=== PATIENT | male | born 1955 | race African-American/Black ===

== ENCOUNTER 2020-03-10 00:19 | Outpatient (CLI) | payer MEDICARE, SELFPAY ==
[2020-03-10 18:26] LABS: SARS-CoV-2 RNA PCR Negative
== END 2020-03-10 00:20 | disposition home or self-care (01) ==
LOC: ANHCOVIDDT 00:19
PROVIDERS: PCP Family Medicine; Visit Provider Internal Medicine Gastroenterology
DX: Z01.812 Encounter for preprocedural laboratory examination (principal); Z20.822 Contact with and (suspected) exposure to COVID-19
CPT/HCPCS: C9803; U0003; U0005

== ENCOUNTER 2020-03-13 01:16 | Day surgery (SDC) | payer MEDICARE, SELFPAY ==
[2020-02-27 09:47] VITALS: BMI 29.0
[2020-03-13 09:25] LABS: Glucose Point of Care 142 (65-105)
[2020-03-13 09:26] VITALS: BP 146/80; PULSE 87; RESP 18; TEMP 36.1; O2SAT 100; BMI 29.9
[2020-03-13] MEDS: LACTATED RINGERS 1,000 ML 150 ML IV CONT (09:35)
--- NOTE | 2020-03-13 10:06 | WPDGICN ---
GI Consult Note Consult date/time: 03/13/20 10:06 HPI: Reason for visit is colonoscopy. This very pleasant gentleman seen in consultation request of the primary physician. Impression: Here is a gentleman with a history of multiple adenomatous polyps and colorectal cancer. He is status post colectomy. GERD controlled with medication. HTN. HLD. CAD with history of myocardial infarction. Status post stent placement x3 and x3. Diabetes mellitus. Peripheral neuropathy. Recommendation: Colonoscopy. History: This very pleasant gentleman has a history adenomatous colon polyps and colorectal cancer. He is status post resection and multiple colonoscopies in the past. He is here for screening and surveillance. He has a history reflux disease well controlled on medication. His GI review systems is negative. Physical examination: General: very pleasant patient in no acute distress. HEENT: Head was normocephalic sclerae is clear mouth without masses neck was supple. Heart: Rate rhythm regular without S3 or S4. Lungs: CTA. Abdomen: Soft with no guarding or rigidity. Bowel sounds were active. Neurologic: Cranial nerves 2 through 12 intact. No focal defects. No clonus. Musculoskeletal system: Revealed no joint tenderness or swelling no muscle atrophy. Extremities: Reveal no significant edema. Skin: Warm and dry with normal turgor. Mental status: intact. Patient is alert and oriented. Review of Systems Review of Systems: All systems reviewed & are unremarkable except as noted in HPI and below PMFSH Family History Family History (System 06/14/19 @ 09:49 by Roseanne Subramanian) Father Cerebrovascular accident Sibling Family history of diabetes mellitus in first degree relative Family history of heart disease in male family member before age 55 Social History Social History (System 06/14/19 @ 09:49 by Roseanne Subramanian) Smoking status: Current every day smoker Tobacco type: cigarettes Alcohol intake: current Alcohol use details: SOCIAL Substance use: never Substance use type: does not use Living arrangements: with family Gender identity (if verbalized by the patient): Male Spiritual care concerns: No Meds Home Medications and Allergies Home Medications Medication Instructions Recorded Confirmed Type albuterol sulfate See Rx Instructions .ROUTE .COMPLEX 02/27/20 03/13/20 History amlodipine 5 mg PO DAILY 02/27/20 03/13/20 History atorvastatin 80 mg PO DAILY 02/27/20 03/13/20 History bimatoprost [Lumigan] 1 drp OPHTHALMIC (EYE) DAILY 02/27/20 03/13/20 History brimonidine 1 drp DAILY 02/27/20 03/13/20 History brimonidine 1 drp OPHTHALMIC (EYE) DAILY 02/27/20 03/13/20 History carvedilol 25 mg PO DAILY 02/27/20 03/13/20 History clonidine HCl 0.1 mg PO DAILY 02/27/20 03/13/20 History empagliflozin [Jardiance] mg 02/27/20 History gabapentin 02/27/20 History insulin glargine [Basaglar KwikPen SUBCUT 02/27/20 History U-100 Insulin] omeprazole 02/27/20 History prazosin 02/27/20 History tramadol mg 02/27/20 History Allergies Allergy/AdvReac Type Severity Reaction Status Date / Time adhesive tape Allergy Unknown RASH Verified 03/13/20 09:24 morphine Allergy Unknown HIVES Verified 03/13/20 09:24 Vital Signs Vital Signs - 24 hr 03/13/20 09:26 Temperature 36.1 C L Pulse Rate 87 Respiratory Rate 18 Blood Pressure 146/80 H Pulse Oximetry 100
--- NOTE | 2020-03-13 10:30 | WPDANESEPPF ---
Anes - Initial Pre Proc Eval Procedure: Operation Date: 03/13/20 10:00 Proposed Procedures p Screening Colonoscopy - Carrington Rios DO Date/Time: 03/13/20 10:30 Surgeon: Carrington Rios DO Pre Op Diagnosis: hx colon CA Patient Data Age: 64 Gender: M Height: 6 ft 1 in Weight: 103.2 kg Last Vital Signs Temp 97 F L 03/13/20 09:26 Pulse 87 03/13/20 09:26 Resp 18 03/13/20 09:26 BP 146/80 H 03/13/20 09:26 Pulse Ox 100 03/13/20 09:26 Allergies Allergy/AdvReac Type Severity Reaction Status Date / Time adhesive tape Allergy Unknown RASH Verified 03/13/20 09:24 morphine Allergy Unknown HIVES Verified 03/13/20 09:24 Home Medications Medication Instructions Recorded Confirmed Type albuterol sulfate See Rx Instructions .ROUTE .COMPLEX 02/27/20 03/13/20 History amlodipine 5 mg PO DAILY 02/27/20 03/13/20 History atorvastatin 80 mg PO DAILY 02/27/20 03/13/20 History bimatoprost [Lumigan] 1 drp OPHTHALMIC (EYE) DAILY 02/27/20 03/13/20 History brimonidine 1 drp DAILY 02/27/20 03/13/20 History brimonidine 1 drp OPHTHALMIC (EYE) DAILY 02/27/20 03/13/20 History carvedilol 25 mg PO DAILY 02/27/20 03/13/20 History clonidine HCl 0.1 mg PO DAILY 02/27/20 03/13/20 History empagliflozin [Jardiance] mg 02/27/20 History gabapentin 02/27/20 History insulin glargine [Basaglar KwikPen SUBCUT 02/27/20 History U-100 Insulin] omeprazole 02/27/20 History prazosin 02/27/20 History tramadol mg 02/27/20 History Laboratory Tests 03/13/20 09:20 POC Capillary Glucose 142 mg/dl H mg/dl (65-105) Patient hx anesthesia problems: none Family hx anesthesia problems: none PMFSH Past Medical History Medical History (Updated 03/13/20 @ 10:30 by Jayme Wyatt MD) Anemia CAD (coronary artery disease) COPD (chronic obstructive pulmonary disease) Diabetes H/O colon cancer, stage I Surgical History Surgical History (Updated 03/13/20 @ 10:30 by Jayme Wyatt MD) Stented coronary artery Family History Family History (System 06/14/19 @ 09:49 by Roseanne Subramanian) Father Cerebrovascular accident Sibling Family history of diabetes mellitus in first degree relative Family history of heart disease in male family member before age 55 Social History Social History (System 06/14/19 @ 09:49 by Roseanne Subramanian) Smoking status: Current every day smoker Tobacco type: cigarettes Alcohol intake: current Alcohol use details: SOCIAL Substance use: never Substance use type: does not use Living arrangements: with family Gender identity (if verbalized by the patient): Male Spiritual care concerns: No Anes - Eval Final PreProcedure Day of Procedure 03/13/20 10:30 Patient weight: overweight Heart: regular rate and rhythm Lungs: clear to auscultation Airway: Mallampati scale class II Neurological: alert and oriented Last oral intake: >/= 8 hours ASA classification: III Emergent: no Anesthetic plan: proceed Anesthesia type and monitoring: general GIVS and standard monitoring Informed Consent: The patient's anesthetic plan and its attendant risks and benefits were discussed with the patient/family/POA. Questions were solicited and answers provided to the satisfaction of the patient/family/POA.
[2020-03-13 11:42] VITALS: BP 151/89; PULSE 55; RESP 17; O2SAT 100
[2020-03-13 11:52] VITALS: BP 173/97; PULSE 64; RESP 18; O2SAT 100
[2020-03-13 11:54] LABS: Glucose Point of Care 111 (65-105)
[2020-03-13 12:02] VITALS: BP 170/98; PULSE 51; RESP 18; O2SAT 100
== END 2020-03-13 12:22 | disposition home or self-care (01) ==
PROVIDERS: PCP Family Medicine; Visit Provider Internal Medicine Gastroenterology
PROC: 0DJD8ZZ Inspection of Lower Intestinal Tract, Via Natural or Artificial Opening Endoscopic (ICD-10-PCS; CPT 45378; principal; 2020-03-13 10:00)
DX: Z12.11 Encounter for screening for malignant neoplasm of colon (principal); D12.2 Benign neoplasm of ascending colon; D12.3 Benign neoplasm of transverse colon; K63.5 Polyp of colon; K62.5 Hemorrhage of anus and rectum; K64.8 Other hemorrhoids; K57.30 Diverticulosis of large intestine without perforation or abscess without bleeding; Z98.0 Intestinal bypass and anastomosis status; Z90.49 Acquired absence of other specified parts of digestive tract; I10 Essential (primary) hypertension; E78.5 Hyperlipidemia, unspecified; I25.10 Atherosclerotic heart disease of native coronary artery without angina pectoris; I25.2 Old myocardial infarction; E11.42 Type 2 diabetes mellitus with diabetic polyneuropathy; Z95.5 Presence of coronary angioplasty implant and graft; F17.210 Nicotine dependence, cigarettes, uncomplicated; Z79.4 Long term (current) use of insulin
CPT/HCPCS: 45380; 45385; 88305; C9803; J2704; J7120; U0003; U0005

== ENCOUNTER 2020-04-09 16:32 | Emergency (ER) | payer MEDICARE, SELFPAY ==
[2020-04-09 17:41] VITALS: BP 143/67; PULSE 42; RESP 18; TEMP 36.1; O2SAT 100
--- NOTE | 2020-04-09 17:46 | ECG_ITS ---
Measurements Intervals [place] Rate: 40 P: DE: 0 QRS: 4 QRSD: 102 T: 53 QT: 463 QTc: 381 Interpretive Statements SINUS BRADYCARDIA DELAYED PRECORDIAL R/S TRANSITION VOLTAGE CRITERIA FOR LVH BORDERLINE ST-T WAVE ABNORMALITY- DIFFUSE LEADS BASELINE ARTIFACT- I, II, AVR ABNORMAL ECG Electronically Signed On 04-09-2020 20:15:41 MEAL ROOM HAND by Tony Gallegos D.O.
--- NOTE | 2020-04-09 19:17 | PC.NURSE ---
Pt ambulatory out of wheelchair to the front office developer, states my made me come. I'm fine. I feel great. I appreciate all you did but I don't need to be here . Amb to exit with steady gait.
== END 2020-04-09 16:59 | disposition left against medical advice (07) ==
PROVIDERS: Emergency Provider Emergency Medicine; PCP Family Medicine
DX: I10 Essential (primary) hypertension (principal)
CPT/HCPCS: 93005; 99199

== ENCOUNTER → 2020-09-23 02:29 | Outpatient (CLI) | payer MEDICARE, SELFPAY ==
[2020-09-24 15:32] LABS: SARS-CoV-2 RNA PCR Negative
== END ==
PROVIDERS: PCP Family Medicine; Visit Provider Family Medicine
DX: R68.89 Other general symptoms and signs (principal); Z20.822 Contact with and (suspected) exposure to COVID-19
CPT/HCPCS: C9803; U0003; U0005

== ENCOUNTER 2021-01-11 07:32 | Emergency (ER) | payer MEDICARE, SELFPAY ==
[2021-01-11 07:31] VITALS: PULSE 89; RESP 16; TEMP 36.6; O2SAT 99
[2021-01-11 07:40] VITALS: BP 155/87
--- NOTE | 2021-01-11 08:12 | ED.EXTPRO ---
HPI - Extremity Problem General Chief complaint: Extremity Problem,Nontraumatic Stated complaint: R KNEE,R FOOT PAIN Source: patient and family Mode of arrival: EMS Limitations: no limitations History of Present Illness HPI Narrative: Patient complaining of pain and redness of the right first, metatarsal phalangeal joint and right knee pain started 3 days ago, been taking 200 mg of ibuprofen twice a day without any improvement, history of gouty arthritis. Patient denies any trauma. Patient also denies any fever, chills, nausea, vomiting. Related Data Home Medications Medication Instructions Recorded Confirmed albuterol sulfate See Rx Instructions .ROUTE .COMPLEX 02/27/20 03/13/20 amlodipine 5 mg PO DAILY 02/27/20 03/13/20 atorvastatin 80 mg PO DAILY 02/27/20 03/13/20 bimatoprost [Lumigan] 1 drp OPHTHALMIC (EYE) DAILY 02/27/20 03/13/20 brimonidine 1 drp DAILY 02/27/20 03/13/20 brimonidine 1 drp OPHTHALMIC (EYE) DAILY 02/27/20 03/13/20 carvedilol 25 mg PO DAILY 02/27/20 03/13/20 clonidine HCl 0.1 mg PO DAILY 02/27/20 03/13/20 empagliflozin [Jardiance] mg 02/27/20 gabapentin 02/27/20 insulin glargine [Basaglar KwikPen SUBCUT 02/27/20 U-100 Insulin] omeprazole 02/27/20 prazosin 02/27/20 tramadol mg 02/27/20 Allergies Allergy/AdvReac Type Severity Reaction Status Date / Time adhesive tape Allergy Unknown RASH Verified 03/13/20 09:24 morphine Allergy Unknown HIVES Verified 03/13/20 09:24 Review of Systems Review of Systems: CONSTITUTIONAL: Denies fever, chills, or sweats. EYES: Denies visual changes, redness, or discharge. ENT: Denies rhinorrhea, congestion, sore throat, or otalgia. CARDIOVASCULAR: Denies chest pain, palpitations, or edema. RESPIRATORY: Denies cough or dyspnea. GASTROINTESTINAL: Denies abdominal pain, nausea, vomiting, or diarrhea. GENITOURINARY: Denies dysuria or hematuria. SKIN: Denies rash or itching. MUSCULOSKELETAL: Denies back pain, joint pain, or myalgia. NEUROLOGIC: Denies headache, numbness, or weakness. PSYCHIATRIC: Denies anxiety or depression. [facility] Past Medical History Medical History Anemia CAD (coronary artery disease) COPD (chronic obstructive pulmonary disease) Diabetes H/O colon cancer, stage I Surgical History Surgical History Stented coronary artery Family History Family History Father Cerebrovascular accident Sibling Family history of diabetes mellitus in first degree relative Family history of heart disease in male family member before age 55 Social History Social History Smoking status: Current every day smoker Tobacco type: cigarettes Alcohol intake: current Alcohol use details: SOCIAL Substance use: never Substance use type: does not use Gender identity (if verbalized by the patient): Male Spiritual care concerns: No Exam Narrative: General appearance: Well-developed, well-nourished Skin: Normal color Neck: Supple, nontender Chest and respiratory: Airway patent, no respiratory distress, no accessory muscle use Heart: Regular rate/rhythm Abdomen: Soft, nontender, no organomegaly, quiet bowel sounds Vascular: Normal peripheral pulses, normal capillary refill. Musculoskeletal: Right foot exam showed the swelling, redness and tenderness of the right first metatarsophalangeal joint. Also the right knee anteriorly with limited range of motion. Neurologic: Alert and oriented ?3, OVEN BUILDER is normal as tested, no gross motor deficit Course Course Karen
[2021-01-11] MEDS: HYDROcodone/acetaminophen (*CRX) 5-325 MG TABLET 1 TAB PO (08:50)
[2021-01-11] MEDS: COLCHICINE 0.6 MG TABLET 1.2 MG PO (08:51)
[2021-01-11] MEDS: INDOMETHACIN 25 MG CAPSULE 50 MG PO (08:51)
[2021-01-11] MEDS: ONDANSETRON HCL ODT 4 MG TABLET 8 MG PO (09:26)
--- NOTE | 2021-01-11 09:32 | PC.NURSE ---
Went in to discharge patient and he began to get very nauseous and began to vomit. Dr. Soto updated on patient status. New verbal orders received.
== END 2021-01-11 10:00 | disposition home or self-care (01) ==
LOC: ANHED 08:39
PROVIDERS: Emergency Provider Emergency Medicine; PCP Family Medicine
DX: M10.9 Gout, unspecified (principal); I25.10 Atherosclerotic heart disease of native coronary artery without angina pectoris; J44.9 Chronic obstructive pulmonary disease, unspecified; E11.9 Type 2 diabetes mellitus without complications; Z85.038 Personal history of other malignant neoplasm of large intestine; Z79.4 Long term (current) use of insulin; Z95.5 Presence of coronary angioplasty implant and graft; F17.210 Nicotine dependence, cigarettes, uncomplicated
CPT/HCPCS: 99283; A9270

== ENCOUNTER 2021-10-27 15:57 | Outpatient (CLI) | payer MEDICARE, SELFPAY ==
--- NOTE | ~2021-10-27 | XR_ITS ---
EXAMINATION: XR hip RT min 2V DATE: 10/27/2021 16:32 INDICATION: Right hip pain. TECHNIQUE: 2 views of right hip were obtained. COMPARISON: None. FINDINGS: Bone alignment is normal. No fracture. There is mild right hip osteoarthritis. There is sev ere lumbar spondylosis. IMPRESSION: 1. Mild right hip osteoarthritis. Reviewed, dictated and finalized at location A.
== END 2021-10-27 15:58 | disposition home or self-care (01) ==
LOC: ANHIMG 16:12
PROVIDERS: PCP Family Medicine; Visit Provider Nurse Practitioner Adult Health
DX: M25.551 Pain in right hip (principal); M16.11 Unilateral primary osteoarthritis, right hip
CPT/HCPCS: 73502

== ENCOUNTER 2021-11-13 21:02 | Emergency (ER) | payer MEDICARE, SELFPAY ==
[2021-11-13] VITALS (7 sets, daily range): BP systolic 143–164; BP diastolic 84–124; PULSE 83–97; RESP 16–18; TEMP 36.4; O2SAT 99
--- NOTE | ~2021-11-13 | XR_ITS ---
EXAMINATION: XR chest 1V portable DATE: 11/13/2021 21:41 INDICATION: Syncope. TECHNIQUE: A single frontal view of the chest was obtained. COMPARISON: Chest 2 views 08/31/2017, CT abdomen and pelvis 08/31/2017 FINDINGS: The chest demonstrates clear lungs without pneumonia, pleural effusion, or pneumothorax. Th e heart size is normal. IMPRESSION: 1. No acute cardiopulmonary disease. Reviewed, dictated and finalized at location A.
--- NOTE | 2021-11-13 21:03 | ECG_ITS ---
Measurements Intervals [place] Rate: 84 P: 55 AR: 204 QRS: 1 QRSD: 110 T: -72 QT: 395 QTc: 468 Interpretive Statements SINUS RHYTHM LEFT ATRIAL ENLARGEMENT [-0.15mV P-WAVE IN V1/V2] LEFT VENTRICULAR HYPERTROPHY AND ST-T CHANGE [VOLTAGE CRITERIA PLUS ST/T ABNORMALITY] NONDIAGNOSTIC INFERIOR Q-WAVES COMPARED TO ECG 04/09/2020 17:47:40 HEART RATE IS INCREASED AND SMALL Q-WAVES ARE SEEN IN LEADS 2 AND AVF Electronically Signed On 11-20-2021 13:25:09 CDT by Zohaib Kaplan M.D.
--- NOTE | 2021-11-13 21:41 | PC.NURSE ---
pt unable to provide urine sample at this time
[2021-11-13 22:27] LABS: Basophils Percent Auto 0.2 % (0.2-1.2); Eosinophils Absolute Auto 0.1 K/mm3 (0-0.3); Eosinophils Percent Auto 0.7 % (0-4.4); Hematocrit 40.6 % (42.0-52.0); Hemoglobin 13.5 g/dL (14.0-18.0); Immature Granulocyte Absolute 0.04 K/mm3 (0.00-0.031); Immature Granulocyte Percent A 0.4 % (0-0.5); Lymphocytes Absolute Auto 1.66 K/mm3 (0.9-3.2); Lymphocytes Percent Auto 17.2 % (18.3-44.2); Mean Corpuscular HGB Conc 33.3 g/dl (32-36); Mean Corpuscular Hemoglobin 29.6 pg (26-34); Mean Platelet Volume 10.7 fl (7.4-10.4); Monocytes Absolute Auto 0.6 K/mm3 (0.1-0.6); Monocytes Percent Auto 6.1 % (2.6-8.5); Neutrophils Absolute Auto 7.3 K/mm3 (1.3-6.7); Neutrophils Percent Auto 75.4 % (45.5-73.1); Platelet Count Result 221 k/mm3 (150-375); Red Blood Count 4.56 M/mm3 (4.6-6.20); Red Cell Distribution Width 14.5 % (11.5-14.5); White Blood Count 9.6 K/mm3 (4.5-10.0)
[2021-11-13 22:37] LABS: Anion Gap 13 mmol/L (8-16); Blood Urea Nitrogen 21 mg/dL (9-20); Calcium 8.5 mg/dL (8.4-10.2); Carbon Dioxide 25 mmol/L (22-30); Chloride 106 mmol/L (98-107); Estimated Glomerular Filt Rate 39; Glucose 152 mg/dL (65-110); Potassium 3.6 mmol/L (3.4-5.0); Sodium 144 mmol/L (137-145)
--- NOTE | 2021-11-13 22:40 | PC.NURSE ---
pt unable to provide urine sample at this time
--- NOTE | 2021-11-13 22:40 | PC.NURSE ---
pt unable to provide urine sample at this time
[2021-11-13] MEDS: SODIUM CHLORIDE 0.9% IV 500 ML 999 ML IV CONT (22:45)
[2021-11-14] VITALS: BP 162/84; PULSE 86; RESP 14; O2SAT 100
--- NOTE | 2021-11-14 00:47 | PC.NURSE ---
Straight Catheter 15 fr attempted by Mine Toscano and Roseanne Rodriguez RN but there was no urine. After we had pt stand, he urinated in a urinal
[2021-11-14 00:55] LABS: Appearance Urine Clear (Clear); Bilirubin Urine Negative (Negative); Blood Urine Trace-intact (Negative); Color Urine Yellow (Yellow); Glucose Urine UA Negative (Negative); Ketones Urine Trace mg/dL (Negative); Leukocyte Esterase Ur Negative LEU/UL (Negative); Nitrate Urine Negative (Negative); Protein Urine 3+ mg/dL (Negative); Urobilinogen Urine 0.2 mg/dL (<2.0); pH Urine 5.5 (5.0-9.0)
--- NOTE | 2021-11-14 00:55 | ED.SYNCOPE ---
HPI - Syncope General Chief Complaint: Syncope Stated Complaint: SYNCOPAL EPISODE Time Seen by Provider: 11/13/21 21:09 History of Present Illness HPI narrative: Patient is a 65-year-old male who presents ER after having an episode of syncope. Patient reports he had been drinking some cognac and also had some wine this evening prior to the event. He is also been smoking some marijuana. He got up to go up to his apartment upstairs when he ended up losing consciousness. No complaints at this time. No chest pain or chest pressure. No headache or change in vision. He is not on any blood thinners. He is concerned he may be dehydrated. Related Data Home Medications Medication Instructions Recorded Confirmed albuterol sulfate 90 mcg/actuation See Rx Instructions .Route .COMPLEX 02/27/20 03/13/20 aerosol inhaler amlodipine 5 mg tablet 5 mg PO DAILY 02/27/20 03/13/20 atorvastatin 80 mg tablet 80 mg PO DAILY 02/27/20 03/13/20 bimatoprost 0.01 % eye drops 1 drp ophthalmic (eye) DAILY 02/27/20 03/13/20 (Lumigan) brimonidine 0.15 % eye drops 1 drp ophthalmic (eye) DAILY 02/27/20 03/13/20 brimonidine 0.2 % eye drops 1 drp DAILY 02/27/20 03/13/20 carvedilol 25 mg tablet 25 mg PO DAILY 02/27/20 03/13/20 clonidine HCl 0.1 mg tablet 0.1 mg PO DAILY 02/27/20 03/13/20 empagliflozin 25 mg tablet mg 02/27/20 (Jardiance) gabapentin 300 mg capsule 02/27/20 insulin glargine 100 unit/mL (3 subcut 02/27/20 mL) subcutaneous pen (Basaglar KwikPen U-100 Insulin) omeprazole 20 mg capsule,delayed 02/27/20 release prazosin 5 mg capsule 02/27/20 tramadol 50 mg tablet mg 02/27/20 Allergies Allergy/AdvReac Type Severity Reaction Status Date / Time adhesive tape Allergy Unknown RASH Verified 03/13/20 09:24 morphine Allergy Unknown HIVES Verified 03/13/20 09:24 Review of Systems Review of Systems: All systems reviewed & are unremarkable except as noted in HPI and below Constitutional: Constitutional: Denies chills and Denies fever(s) ENT: Denies nasal congestion and Denies sore throat Cardiovascular: Cardiovascular: Denies chest pain, Denies rapid heart rate and Denies radiating jaw, neck or arm pain Respiratory: Respiratory: Denies cough and Denies dyspnea Gastrointestinal: Gastrointestinal: Denies abdominal pain, Denies nausea and Denies vomiting Neurologic: Reports syncope, Denies headache(s), Denies focal weakness and Denies numbness PMFSH Past Medical History Medical History Anemia CAD (coronary artery disease) COPD (chronic obstructive pulmonary disease) Diabetes H/O colon cancer, stage I Surgical History Surgical History Stented coronary artery Family History Family History Father Cerebrovascular accident Sibling Family history of diabetes mellitus in first degree relative Family history of heart disease in male family member before age 55 Social History Social History Smoking status: Current every day smoker Tobacco type: cigarettes Alcohol intake: current Alcohol use details: SOCIAL Substance use: never Substance use type: does not use Gender identity (if verbalized by the patient): Male Spiritual care concerns: No Exam Narrative: GENERAL: Well-appearing, well-nourished, and in no acute distress. HEAD: Normocephalic, atraumatic. EYES: PERRLA and EOMI. ENT: Mucous membranes moist. CHEST: Clear to auscultation. No respiratory distress. HEART: Regular rate and rhythm. Normal peripheral pulses. ABDOMEN: Soft, nontender, nondistended. EXTREMITIES: Normal range of motion. No edema. SKIN: Warm, dry, no rash. NEURO: Clear speech. Alert and oriented x3. PSYCH: Normal mood and affect. Course Course Emergency Course: Patient resting comfortably. Up and ambulatory
[2021-11-14 00:58] LABS: WBC Urine 0-3 /hpf
[2021-11-14 00:59] LABS: Add Urine Microscopic? YES
[2021-11-14 01:01] VITALS: BP 162/96; PULSE 93; RESP 15
--- NOTE | 2021-11-14 01:18 | PC.NURSE ---
Pt ambulated without difficulties using a walker. EDP notified.
== END 2021-11-14 01:49 | disposition home or self-care (01) ==
PROVIDERS: Emergency Provider Emergency Medicine; PCP Family Medicine
DX: R55 Syncope and collapse (principal); E11.9 Type 2 diabetes mellitus without complications; J44.9 Chronic obstructive pulmonary disease, unspecified; I25.10 Atherosclerotic heart disease of native coronary artery without angina pectoris; D64.9 Anemia, unspecified; Z85.038 Personal history of other malignant neoplasm of large intestine; F17.210 Nicotine dependence, cigarettes, uncomplicated; F12.90 Cannabis use, unspecified, uncomplicated; Z79.51 Long term (current) use of inhaled steroids; Z79.84 Long term (current) use of oral hypoglycemic drugs; Z79.4 Long term (current) use of insulin
CPT/HCPCS: 36415; 51701; 71045; 80048; 81001; 85025; 93005; 96360; 96361; 99283; J7040

== ENCOUNTER 2022-01-25 09:52 | Outpatient (CLI) | payer MEDICARE, SELFPAY ==
--- NOTE | ~2022-01-25 | US_ITS ---
EXAMINATION: US renal BI DATE: 01/25/2022 10:53 INDICATION: CKD STAGE 3B;DIAB MELLITUS W/ RENAL MANIFESTATIONS TECHNIQUE: Multiple grayscale and Doppler ultrasound images of the kidneys were obtained. COMPARISON: CT abdomen and pelvis 08/31/2017 FINDINGS: The right kidney measures 10.6 x 5.9 x 6.8 cm. The left kidney measures 9.5 x 5.4 x 4.3 cm. Right upp er pole simple cyst measuring 1.2 cm. Left midpole simple cyst measuring 2.9 cm. Normal parenchymal e chogenicity. There is no hydronephrosis. The bladder is normal. IMPRESSION: Unremarkable renal sonogram findings. Reviewed, dictated and finalized at location K. DRIER OPERATOR
== END 2022-01-25 09:53 | disposition home or self-care (01) ==
PROVIDERS: PCP Family Medicine; Visit Provider Internal Medicine Nephrology
DX: N18.32 Chronic kidney disease, stage 3b (principal); E11.29 Type 2 diabetes mellitus with other diabetic kidney complication; I12.9 Hypertensive chronic kidney disease with stage 1 through stage 4 chronic kidney disease, or unspecified chronic kidney disease
CPT/HCPCS: 76775

== ENCOUNTER 2022-04-19 10:26 | Outpatient (CLI) | payer MEDICARE, SELFPAY ==
[2022-04-19 11:28] LABS: Albumin Level 4.2 g/dL (3.5-5.1); Anion Gap 5 mmol/L (8-16); Blood Urea Nitrogen 17 mg/dL (9-20); Calcium 9.1 mg/dL (8.4-10.2); Carbon Dioxide 31 mmol/L (22-30); Chloride 103 mmol/L (98-107); Estimated Glomerular Filt Rate 53; Glucose 130 mg/dL (65-110); Phosphorus 3.3 mg/dL (2.5-4.5); Potassium 3.5 mmol/L (3.4-5.0); Sodium 139 mmol/L (137-145)
[2022-04-19 11:39] LABS: Parathyroid Intact 222.6 pg/mL (7.5-53.5)
[2022-04-19 19:23] LABS: Creatinine Urine 289.1 mg/dL
[2022-04-19 19:30] LABS: Total Protein Urine Random 303 mg/dL; Ur Ttl Prot Creatinine Ratio 1.05 mg/mg (0-0.20)
== END 2022-04-19 10:27 | disposition home or self-care (01) ==
PROVIDERS: PCP Family Medicine; Visit Provider Internal Medicine Nephrology
DX: E11.22 Type 2 diabetes mellitus with diabetic chronic kidney disease (principal); I12.9 Hypertensive chronic kidney disease with stage 1 through stage 4 chronic kidney disease, or unspecified chronic kidney disease; N18.32 Chronic kidney disease, stage 3b
CPT/HCPCS: 36415; 80069; 82306; 82570; 83970; 84156

== ENCOUNTER 2022-05-30 23:48 | Inpatient (IN) | payer MEDICARE, SELFPAY ==
--- NOTE | ~2022-05-30 | XR_ITS ---
Portable chest x-ray Comparison: 11/13/2021 Clinical History: Chest pain Findings: Lungs are clear, without focal consolidation or pleural effusion. Cardiomediastinal silho uette is stable. Bones and soft tissues are unremarkable. Impression: Clear lungs. Reviewed, dictated and finalized at location . Impression: Clear lungs.
[2022-05-30 23:48] VITALS: BP 174/100; PULSE 100; RESP 20; TEMP 36.6; O2SAT 100
--- NOTE | 2022-05-30 23:51 | ECG_ITS ---
Measurements Intervals [place] Rate: 98 P: 65 ND: 185 QRS: 39 QRSD: 118 T: 38 QT: 381 QTc: 487 Interpretive Statements SINUS RHYTHM LEFT ATRIAL ENLARGEMENT [-0.15mV P WAVE IN V1/V2] LEFT VENTRICULAR HYPERTROPHY AND ST-T CHANGE [VOLTAGE CRITERIA PLUS ST/T ABNORMALITY] SUSPECT A PREVIOUS INFERIOR WALL SD ABNORMAL ECG COMPARED TO ECG 11/13/2021 21:03:27 NO SIGNIFICANT CHANGES Electronically Signed On 05-31-2022 10:39:19 CDT by Zohaib Kaplan M.D.
[2022-05-30 23:57] VITALS: PULSE 99; RESP 13; O2SAT 100
[2022-05-30 23:58] VITALS: O2SAT 100
[2022-05-31] VITALS (86 sets, daily range): BP systolic 113–224; BP diastolic 75–133; PULSE 77–125; RESP 8–24; TEMP 36.4–37.3; O2SAT 94–100; BMI 24.7
--- NOTE | 2022-05-31 | ECHO_ITS ---
Patient Info Name: Adalberto Hogan Age: 66 years : 1955 Gender: Male Ht: 73 in Wt: 187 lbs BSA: 2.10 m2 HR: 102 bpm BP: 119 / 84 mmHg Heart Rhythm: Sinus Rhythm Technical Quality: Fair Exam Date: 05/31/2022 7:39 AM Exam Location: [facility] Patient Status: Inpatient Admit Date: 05/31/2022 Staff Ordering Physician: Dustin Naranjo MD Mental Health Practitioner: Stacie Gandara RDCS Attending Provider: Dustin Naranjo MD Referring Physician: Jose A SIDHU; Exam Type: CA echo doppler color flow Study Info Indications - Uncontrolled HTN Complete two-dimensional, color flow and Doppler transthoracic echocardiogram is performed. Summary 1. Complete two-dimensional, color flow and Doppler transthoracic echocardiogram is performed. 2. Severe concentric left ventricular hypertrophy with mild to moderately depressed systolic dysfunction. 3. Akinesis of the infero posterior segment as well as the septal. 4. No aortic or mitral valve dysfunction. 5. Enlarged left atrium. 6. Grade 2 diastolic noncompliance. Left Ventricle Left ventricular chamber dimension is mildly enlarged. Left ventricular systolic function is moderately reduced, estimated at 35-40%. There is severe concentric increased left ventricular wall thickness. The left ventricular diastolic function is grade II diastolic dysfunction. Right Ventricle Right ventricular chamber dimension is normal. Left Atria Left atrial chamber dimension is mildly enlarged. Right Atria Right atrial chamber dimension is normal. Aortic Valve The aortic valve is normal. Pulmonic Valve The pulmonic valve is not well visualized. Mitral Valve The mitral valve has normal leaflets. There is no mitral valve regurgitation. Tricuspid Valve The tricuspid valve leaflets are normal. Pericardium/Pleural The pericardium appears normal. Aorta The aortic root size at the sinus of Valsalva is normal. Left Ventricular Outflow Tract Name Value Normal LVOT 2D LVOT Diameter 2.0 cm LVOT Doppler LVOT Peak Gradient 2 mmHg LVOT Mean Gradient 1 mmHg LVOT VTI 12 cm LVOT VTI/AV VTI Ratio 0.7 LVOT Stroke Volume 38 ml LVOT CO 3.2 l/min LVOT CI 1.5 l/min/m2 Pulmonic Valve Name Value Normal RVOT Doppler RVOT Peak Gradient 2 mmHg PV Doppler PV Peak Gradient 6 mmHg Mitral Valve Name Value Normal
--- NOTE | 2022-05-31 00:13 | ED.CHESTPAIN ---
HPI - Chest Pain General Chief Complaint: Chest Pain <Love Freedman PA-C - Last Filed: 05/31/22 01:50> Stated Complaint: CP, LEFT ARM PAIN, DIFFICULTY IN BREATHING <Love Freedman PA-C - Last Filed: 05/31/22 01:50> Time Seen by Provider: 05/30/22 23:51 <Love Freedman PA-C - Last Filed: 05/31/22 01:50> History of Present Illness HPI narrative: 66 y/o male with a history of stage III chronic kidney disease, coronary artery disease, DM, COPD, HTN, gastritis, PUD, history of OR in 2006, history of 6 stents placed in 2006 and 2007 arrives via EMS from home for evaluation of substernal and left-sided chest pain intermittently for the past 2 to 3 days. Patient reports the chest pain comes on after he eats, describes it as a gas like sensation and feels like he has to burp. States this round of chest pain came on while he was watching TV. Reports associated shortness of breath, nausea, diaphoresis the chest pain occurs. He had one episode of non-bloody emesis that occurred prior to calling EMS. States CP happens a few times throughout the day and is not associated with ambulation or movement. States the pain does not radiate anywhere. He was given 324 ASA and nitro in the ambulance with resolution of chest pain. Denies abdominal pain, melena, hematochezia, hemoptysis, hematemesis, fever, body aches, chill, cough. <Love Freedman PA-C - Last Filed: 05/31/22 01:50> Related Data Home Medications: Home Medications Medication Instructions Recorded Confirmed albuterol sulfate 90 mcg/actuation See Rx Instructions .Route .COMPLEX 02/27/20 04/20/22 aerosol inhaler amlodipine 5 mg tablet 5 mg PO DAILY 02/27/20 04/20/22 atorvastatin 80 mg tablet 80 mg PO DAILY 02/27/20 04/20/22 bimatoprost 0.01 % eye drops 1 drp ophthalmic (eye) DAILY 02/27/20 04/20/22 ([place]) brimonidine 0.15 % eye drops 1 drp ophthalmic (eye) DAILY 02/27/20 04/20/22 brimonidine 0.2 % eye drops 1 drp DAILY 02/27/20 04/20/22 carvedilol 25 mg tablet 25 mg PO DAILY 02/27/20 04/20/22 clonidine HCl 0.1 mg tablet 0.1 mg PO DAILY 02/27/20 04/20/22 empagliflozin 25 mg tablet mg 02/27/20 04/20/22 (Jardiance) gabapentin 300 mg capsule 02/27/20 04/20/22 insulin glargine 100 unit/mL (3 subcut 02/27/20 04/20/22 mL) subcutaneous pen (Basaglar KwikPen U-100 Insulin) omeprazole 20 mg capsule,delayed 02/27/20 04/20/22 release prazosin 5 mg capsule 02/27/20 04/20/22 tramadol 50 mg tablet mg 02/27/20 04/20/22 <Love Freedman PA-C - Last Filed: 05/31/22 01:50> Allergies/Adverse Reactions: Allergies Allergy/AdvReac Type Severity Reaction Status Date / Time adhesive tape Allergy Unknown RASH Verified 05/30/22 23:55 morphine Allergy Unknown HIVES Verified 05/30/22 23:55 <Love Freedman PA-C - Last Filed: 05/31/22 01:50> Review of Systems Review of Systems: CONSTITUTIONAL: Denies fever, chills EYES: Denies visual changes, redness, or discharge. ENT: Denies rhinorrhea, congestion, sore throat, or otalgia. CARDIOVASCULAR: See HPI. RESPIRATORY: See HPI GASTROINTESTINAL: Denies abdominal pain, nausea, vomiting, or diarrhea. GENITOURINARY: Denies dysuria or hematuria. SKIN: Denies rash or itching. MUSCULOSKELETAL: Denies back pain, joint pain, or myalgia. NEUROLOGIC: Denies headache, numbness, dizziness, or weakness. PSYCHIATRIC: Denies anxiety or depression. <Love Freedman PA-C - Last Filed: 05/31/22 01:50> [facility] Past Medical History Medical History: Medical History Anemia CAD (coronary artery disease) CKD (chronic kidney disease) COPD (chronic obstructive pulmonary disease) Diabetes H/O colon cancer, stage I <Love Freedman PA-C - Last Filed: 05/31/22 01:50> Surgical History Surgical History: Surgical History Stented coronary artery <Love Freedman PA-C - Last Filed:
[2022-05-31] MEDS: BELLADONNA ALK/PHENOB ELIX 10 ML, MAG HYDROX/ALUMINUM HYD/SIMETH 30 ML, LIDOCAINE HCL 2... PO (00:21)
[2022-05-31] MEDS: FAMOTIDINE 20 MG/2 ML VIAL IV PUSH (00:21)
[2022-05-31 00:25] LABS: Basophils Percent Auto 0.4 % (0.2-1.2); Eosinophils Absolute Auto 0.1 K/mm3 (0-0.3); Eosinophils Percent Auto 0.7 % (0-4.4); Hematocrit 39.2 % (42.0-52.0); Hemoglobin 13.2 g/dL (14.0-18.0); Immature Granulocyte Absolute 0.05 K/mm3 (0.00-0.031); Immature Granulocyte Percent A 0.5 % (0-0.5); Lymphocytes Absolute Auto 2.45 K/mm3 (0.9-3.2); Lymphocytes Percent Auto 23.6 % (18.3-44.2); Mean Corpuscular HGB Conc 33.7 g/dl (32-36); Mean Corpuscular Hemoglobin 29.7 pg (26-34); Mean Corpuscular Volume 88.1 fl (80-100); Mean Platelet Volume 10.4 fl (7.4-10.4); Monocytes Absolute Auto 0.5 K/mm3 (0.1-0.6); Monocytes Percent Auto 5.2 % (2.6-8.5); Neutrophils Absolute Auto 7.2 K/mm3 (1.3-6.7); Neutrophils Percent Auto 69.6 % (45.5-73.1); Platelet Count Result 253 k/mm3 (150-375); Red Blood Count 4.45 M/mm3 (4.6-6.20); Red Cell Distribution Width 14.8 % (11.5-14.5); White Blood Count 10.4 K/mm3 (4.5-10.0)
[2022-05-31 00:29] LABS: Alanine Aminotransferase 20 U/L (6-50); Albumin Level 4.4 g/dL (3.5-5.1); Alkaline Phosphatase 82 U/L (38-126); Anion Gap 9 mmol/L (8-16); Aspartate Amino Transferase 26 U/L (17-59); Bilirubin,Total 0.6 mg/dL (0.2-1.3); Blood Urea Nitrogen 16 mg/dL (9-20); Calcium 9.2 mg/dL (8.4-10.2); Carbon Dioxide 26 mmol/L (22-30); Chloride 109 mmol/L (98-107); Estimated CRCL calculation 44 ml/min; Estimated Glomerular Filt Rate 49; Glucose 198 mg/dL (65-110); Lipase 190 U/L (23-300); Potassium 3.3 mmol/L (3.4-5.0); Prothrombin Time 12.9 Seconds (11.1-14.7); Sodium 144 mmol/L (137-145)
[2022-05-31 00:30] LABS: Partial Thromboplastin Time 29.2 SECONDS (22.3-36.8)
[2022-05-31] MEDS: ALBUTEROL SULFATE NEB 2.5 MG/3 ML INH 5 MG INHALATION (00:40)
[2022-05-31] MEDS: IPRATROPIUM BR 0.02% INH SOLN 0.5 MG/2.5 ML VIAL INHALATION (00:40)
--- NOTE | 2022-05-31 00:40 | PC.NURSE ---
Called lab to add on BNP,spoke with Katt.
[2022-05-31] MEDS: HEPARIN SODIUM 5,000 UNITS/ML VIAL 4000 UNITS IV PUSH (00:58)
[2022-05-31 01:01] LABS: NT Pro B Type Natriuretic Pept 5340 pg/mL (19.9-100)
[2022-05-31] MEDS: fentaNYL CITRATE INJ (*CRX) 100 MCG/2 ML VIAL 50 MCG IV PUSH (01:07)
[2022-05-31] MEDS: HEPARIN SOD/D5W 100 UNITS/ML 25,000 UNITS/250 ML BAG 10 UNITS IV CONT (01:08)
[2022-05-31] MEDS: POTASSIUM CHLORIDE 20 MEQ PACKET (FOR LIQUID) 40 MEQ PO (01:28)
[2022-05-31] MEDS: LORazepam INJ (*CRX) 2 MG/ML VIAL 1 MG IV PUSH (01:28)
--- NOTE | 2022-05-31 01:34 | PC.NURSE ---
Patient aware of need for urine sample. Patient unable to provide one at this time. Patient a/ox4, refusing straight cath.
--- NOTE | 2022-05-31 02:10 | PM.IMHP ---
H&P: HPI History of Present Illness Date/Time: 05/31/22 02:10 Chief Complaint: Chest pain Narrative: This is a 66-year-old male with past medical history significant for coronary artery disease status post PTCI, hypertension, chronic kidney disease, type 2 diabetes mellitus. Patient presents to the emergency room due to PND, orthopnea, chest pain for the last week or so denies any leg swelling, to night patient had episode of indigestion with nausea and vomiting , denies any lightheadedness, syncope, near syncope, no rigors, no chills no fevers, dry cough. Preliminary workup in emergency room showed a brain natriuretic peptide upwards 5000, troponin x 1 was 1.5, creatinine 1.7 BUN 16. EKG was reported as: SINUS RHYTHM LEFT ATRIAL ENLARGEMENT [-0.15mV P WAVE IN V1/V2] LEFT VENTRICULAR HYPERTROPHY AND ST-T CHANGE [VOLTAGE CRITERIA PLUS ST/T ABNORMALITY] PROBABLE INFERIOR MYOCARDIAL INFARCTION , OF INDETERMINATE AGE [35 ms Q WAVE IN II/aVF] COMPARED TO ECG 11/13/2021 21:03:27 NO SIGNIFICANT CHANGES Review of Systems Review of Systems: Chest pain, nausea, vomiting, shortness of breath, PND, orthopnea Constitutional: Constitutional: Denies chills, Denies fatigue, Denies fever(s), Denies lethargy, Denies malaise, Denies night sweats, Denies poor appetite and Denies weakness Eyes: Eyes: Denies change in vision ENT: Denies dysphagia and Denies odynophagia Cardiovascular: Cardiovascular: Reports chest pain, Denies leg edema, Denies lightheadedness, Denies palpitations, Reports dyspnea, Reports dyspnea on exertion, Reports orthopnea and Reports paroxysmal nocturnal dyspnea Respiratory: Respiratory: Denies chest congestion, Reports cough and Denies excessive phlegm production Gastrointestinal: Gastrointestinal: Denies abdominal pain, Reports dyspepsia, Reports heartburn, Reports nausea and Reports vomiting Genitourinary: Genitourinary: Denies dysuria Musculoskeletal: Musculoskeletal: Denies back pain Integumentary/Breasts: Skin/Breast: Denies rash Neurologic: Denies focal weakness and Denies Sensory deficit (Neuro) Psychiatric: Psychiatric: Reports no additional psychiatric complaints and Reports as per HPI Endocrine: Endocrine: Denies cold intolerance, Denies fatigue, Denies flushing, Denies heat intolerance, Denies polyphagia, Denies polydipsia and Denies palpitations Hematologic/Lymphatic: Hematologic/Lymphatic: Reports no additional hematologic/lymphatic complaints and Reports as per HPI Allergic/Immunologic: Allergic/Immunologic: Reports no additional allergic/immunologic complaints and Reports as per HPI [facility] Past Medical History Medical History (Updated 05/31/22 @ 02:11 by Dustin Naranjo MD) Anemia CAD (coronary artery disease) CKD (chronic kidney disease) COPD (chronic obstructive pulmonary disease) Diabetes H/O colon cancer, stage I Surgical History Surgical History Stented coronary artery Family History Family History Father Cerebrovascular accident Sibling Family history of diabetes mellitus in first degree relative Family history of heart disease in male family member before age 55 Social History Social History Smoking status: Current every day smoker Tobacco type: cigarettes Alcohol intake: current Alcohol use details: SOCIAL Substance use: never Substance use type: does not use Lack of Transportation: YES Lack of Food: Sometimes True Current Housing: I Have Housing Concerned About Future Housing: No Difficulty Paying Gas/Electric Bills: Decline to Answer Difficulty Paying for Meds: YES Education: High School Diploma/GED Difficulty w/ Childcare or Family Care: No Living arrangements: with family Gender identity (if verbalized by the patient): Male Spiritual care concerns: No Meds
[2022-05-31] MEDS: NITROGLYCERIN/D5W 200 MCG/ML 50 MG/250 ML BTL IV CONT (02:40)
--- NOTE | 2022-05-31 02:44 | ECG_ITS ---
Measurements Intervals [place] Rate: 122 P: 77 DE: 159 QRS: 31 QRSD: 126 T: 3 QT: 316 QTc: 451 Interpretive Statements SINUS TACHYCARDIA LEFT VENTRICULAR HYPERTROPHY AND ST-T CHANGE [VOLTAGE CRITERIA PLUS ST/T ABNORMALITY] POSSIBLE INFERIOR MYOCARDIAL INFARCTION , OLD SINUS TACHYCARDIA NOW PRESENT ABNORMAL ECG COMPARED TO YESTERDAY NO SIGNIFICANT DIFFERENCE Electronically Signed On 05-31-2022 10:41:25 CDT by Zohaib Kaplan M.D.
--- NOTE | 2022-05-31 02:45 | PC.NURSE ---
VORB to increase nitro drip to 50mcg/min and repeat EKG.
--- NOTE | 2022-05-31 02:49 | PC.NURSE ---
VORB to give 100mcg of fentanyl.
[2022-05-31] MEDS: fentaNYL CITRATE INJ (*CRX) 100 MCG/2 ML VIAL (02:53)
--- NOTE | 2022-05-31 02:58 | PC.NURSE ---
VORB to increase nitro drip to 100mcg/min.
--- NOTE | 2022-05-31 03:02 | PC.NURSE ---
VORB to increase nitro drip to 125mcg/min.
--- NOTE | 2022-05-31 03:12 | PC.NURSE ---
VORB to increase nitro drip to 150mcg/min. Patient states his pain is relieved at this time.
--- NOTE | 2022-05-31 03:40 | ADMGEN ---
This patient, Adalberto Hogan Sr., was admitted to Intensive Care Unit-10. Patient/family oriented to hospital policies and general routines including ID bracelet, bed and alarms, visiting hours, pain management, procedures, bathroom and other care routines, personal items, smoking policy, room service/diet, and visiting hours. Information on how to activate the Rapid Response Team has been discussed. Patient/Family are encouraged to report perceived risks to care and to ask questions if they do not understand what they are told or what they should do.
[2022-05-31 04:32] LABS: Appearance Urine Clear (Clear); Bacteria Urine None Seen /hpf; Bilirubin Urine Negative (Negative); Blood Urine Negative (Negative); Color Urine Yellow (Yellow); Glucose Urine UA Negative (Negative); Ketones Urine Negative (Negative); Leukocyte Esterase Ur Negative LEU/UL (Negative); Nitrate Urine Negative (Negative); Non Pathogenic Casts 0-2; Protein Urine 3+ mg/dL (Negative); RBC Urine 0-2 /hpf (0-2); Specific Grav Ur 1.015 (1.001-1.035); Squamous Epithelial Cell Urine None seen /hpf (Few); Urobilinogen Urine 0.2 mg/dL (<2.0); WBC Urine 0-5 /hpf
[2022-05-31 04:44] LABS: Magnesium 1.8 mg/dL (1.6-2.3); Phosphorus 2.7 mg/dL (2.5-4.5)
[2022-05-31 05:30] LABS: Add Urine Microscopic? YES
[2022-05-31 06:54] LABS: Partial Thromboplastin Time 106.1 SECONDS (22.3-36.8)
[2022-05-31] MEDS: amLODIPine BESYLATE 5 MG TABLET PO (08:19)
[2022-05-31] MEDS: ASPIRIN 81 MG CHEWABLE TABLET PO (08:19)
[2022-05-31] MEDS: ATORVASTATIN 40 MG TABLET 80 MG PO (08:19)
[2022-05-31] MEDS: PANTOPRAZOLE 40 MG TABLET PO (08:20)
[2022-05-31] MEDS: calcitrioL 0.25 MCG CAPSULE PO (08:20)
[2022-05-31] MEDS: cloNIDine HCL 0.1 MG TABLET PO (08:20)
[2022-05-31] MEDS: BRIMONIDINE TARTRATE 0.2% OP SOLN 5 ML BTL 1 DROP EACH EYE (08:20)
[2022-05-31] MEDS: NITROGLYCERIN/D5W 200 MCG/ML 50 MG/250 ML BTL 45 MG IV CONT (08:48)
--- NOTE | 2022-05-31 08:54 | WPDCNINT ---
Assessment and Plan Assessment and plan (1) Acute non-ST elevation myocardial infarction (NSTEMI): Code(s): I21.4 - Non-ST elevation (NSTEMI) myocardial infarction Status: Acute Assessment and Plan: Elevated troponin with no ST elevation on EKG Patient has history of coronary disease status post PCI in the past. Two thousand seven in 2007 Currently on heparin and nitroglycerin infusion Continue aspirin statin Not on beta-mike as an outpatient Echocardiogram ordered Cardiology currently evaluating patient Patient will likely go for cardiac catheterization (2) COPD (chronic obstructive pulmonary disease): Code(s): J44.9 - Chronic obstructive pulmonary disease, unspecified Status: Acute Assessment and Plan: Baseline COPD but does not appear in exacerbation Continue Symbicort and DuoNeb (3) Acute hypokalemia: Code(s): E87.6 - Hypokalemia Status: Acute Assessment and Plan: Replacement ordered (4) Benign hypertension with chronic kidney disease: Code(s): I12.9 - Hypertensive chronic kidney disease with stage 1 through stage 4 chronic kidney disease, or unspecified chronic kidney disease Status: Acute Assessment and Plan: Patient currently on amlodipine clonidine and nitroglycerin infusion Not on beta-mike as an outpatient (5) Diabetes mellitus with chronic kidney disease: Code(s): E11.22 - Type 2 diabetes mellitus with diabetic chronic kidney disease Status: Acute Assessment and Plan: Add sliding scale hold Lantus (6) Stage 3b chronic kidney disease: Code(s): N18.32 - Chronic kidney disease, stage 3b Status: Acute Assessment and Plan: Creatinine appears to be close to baseline. Patient is followed by Dr. Sotelo as an outpatient. Had recent ultrasound of the kidneys which was unremarkable Monitor urine output electrolytes creatinine Will start IV fluids if patient is going cardiac catheterization today (7) Tobacco abuse: Code(s): Z72.0 - Tobacco use Status: Acute Assessment and Plan: Patient currently smokes 5 cigarettes a day. I have strongly counseled and encouraged patient to quit smoking in light of his coronary disease and other risk factors including diabetes and hypertension Plan DVT prophylaxis -heparin drip Nutrition -NPO Code Status - Full Code Total Critical Care Time - 35 minutes Due to a high probability of clinically significant, life threatening deterioration, the patient required my highest level of preparedness to intervene emergently and I personally spent this critical care time directly and personally managing the patient. This critical care time included obtaining a history; examining the patient; pulse oximetry; ordering and review of studies; arranging urgent treatment with development of a management plan; evaluation of patient's response to treatment; frequent reassessment; and discussions with other providers. It was exclusive of separately billable procedures and treating other patients and teaching time. Please see Assessment and Plan section and the rest of the note for further information on patient assessment and treatment [employer] Consult Note Consult date: 05/31/22 Reason for consult: NSTEMI HPI: Adalberto Dean Edison Curiel is a 66 year old male with past medical history significant for coronary artery disease status post PCI, hypertension, chronic kidney disease stage IIIA, type 2 diabetes mellitus presented to the emergency room last night due to chest pain. Chest pain has been going on for last 1 week on and off. Pain located in left side of the chest, pressure-like quality, radiates to left arm. Yesterday pain got worse and was 10/10 severe, associated with nausea vomiting and shortness of breath hence he presented to the ER. Currently chest pain-free and denies any shortness of breath at this time Review of system is positive for PND, dyspnea on exertion,
[2022-05-31] MEDS: FLUTICASONE/SALMETEROL 115-21 MCG INHALER 1 PUFF 2 PUFF INHALATION ×2 (09:00→20:35)
--- NOTE | 2022-05-31 09:06 | PM.CNCAR ---
Assessment and Plan Assessment and plan (1) Acute non-ST elevation myocardial infarction (NSTEMI): Code(s): I21.4 - Non-ST elevation (NSTEMI) myocardial infarction Status: Acute Assessment and Plan: Presenting with a chief complaint of chest pain. Troponin trend 1.540, 2.550, 2.810. This does represent ACS. EKG shows sinis tachycardia with some ST depression in the lateral leads, LVH continue heparin gtt continue nitroglycerin gtt, decrease dose to 60mcg/min plan for coronary angiogram, possible PCI this afternoon Continue aspirin, statin. start beta-mike. Cardiac rehab referral (2) Heart failure: Qualifiers: Heart failure chronicity: unspecified Heart failure type: unspecified Qualified Code(s): I50.9 - Heart failure, unspecified Code(s): I50.9 - Heart failure, unspecified Status: Acute Assessment and Plan: No clinical signs of heart failure at this time. Check 2D echo with Doppler. (3) Stage 3a chronic kidney disease: Code(s): N18.31 - Chronic kidney disease, stage 3a Status: Acute Assessment and Plan: stage 3 chronic kidney disease. Follows with Dr. Sotelo. Creatinine 1.7, baseline 1.6-2.1. (4) Tobacco abuse: Code(s): Z72.0 - Tobacco use Status: Acute Assessment and Plan: Smoking cessation counseling performed. History of Present Illness History of Present Illness Consult date/time: 05/31/22 09:06 Requesting physician: Love Freedman PA-C Consult reason: chest pain Reason For Visit: NSTEMI Narrative: Mr. Hogan is a 66 year old male with a history of coronary artery disease status post PCI in 2006 with 6 stents according to the patient. He also has type II diabetes mellitus, hypertension, chronic kidney disease (stage 3), and he is a current smoker. This is a patient who presents to the hospital with a chief complaint of chest pain. He has been experiencing a sensation of central chest burning and pressure after eating that he attributed to acid reflux. The pain would usually subside spontaneously after meal completion, but last night the pain persisted, so he came to the hospital for evaluation. He has also been experiencing central chest pressure during sexual intercourse for the past several weeks. He denies any palpitations, shortness of breath, edema, orthopnea. or PND. He has been free from chest pain since receiving nitroglycerin and aspirin in the ambulance. He remains on nitroglycerin and heparin drips and is resting comfortably and free from chest pain at this time. Review of Systems Review of Systems: All systems reviewed & are unremarkable except as noted in HPI and below [facility] Past Medical History Medical History Anemia CAD (coronary artery disease) CKD (chronic kidney disease) COPD (chronic obstructive pulmonary disease) Diabetes H/O colon cancer, stage I Surgical History Surgical History Stented coronary artery Family History Family History Father Cerebrovascular accident Sibling Family history of diabetes mellitus in first degree relative Family history of heart disease in male family member before age 55 Social History Social History Smoking packs per day: 0.5 Smoking cigarettes per day: 10.0 Years smoked: 45 Smoking pack-years: 22.50 Smoking status: Current every day smoker Tobacco type: cigarettes Alcohol intake: current Drinks per week: 3 Alcohol use details: SOCIAL Substance use: current Substance use type: marijuana Lack of Transportation: No Lack of Food: Never True Current Housing: I Do Not Have Housing Concerned About Future Housing: No Difficulty Paying Gas/Electric Bills: No Difficulty Paying f
[2022-05-31 09:14] LABS: Glucose Point of Care 160 mg/dl (65-105)
[2022-05-31 11:56] LABS: Glucose Point of Care 139 mg/dl (65-105)
[2022-05-31 14:32] LABS: Partial Thromboplastin Time 62.8 SECONDS (22.3-36.8)
[2022-05-31] MEDS: HEPARIN SODIUM 5,000 UNITS/ML VIAL 3500 UNITS IV PUSH (14:37)
--- NOTE | 2022-05-31 15:37 | WPDMODSED ---
Moderate Sedation Note-Pt Data Patient Data Diagnosis: coronary artery disease with previous PCI and acute coronary syndrome hypertension tobacco abuse Present Complaint: intermittent chest pain for approximately 2 weeks Procedure to be performed/Plan: left heart catheterization Allergies Allergy/AdvReac Type Severity Reaction Status Date / Time adhesive tape Allergy Unknown RASH Verified 05/30/22 23:55 morphine Allergy Unknown HIVES Verified 05/30/22 23:55 Home Medications Medication Instructions Recorded Confirmed Type albuterol sulfate 90 mcg/actuation 2 puff inhalation Q6H PRN 02/27/20 05/31/22 History aerosol inhaler Shortness Of Breath Or Wheezing amlodipine 5 mg tablet 5 mg PO DAILY 02/27/20 05/31/22 History atorvastatin 80 mg tablet 80 mg PO DAILY 02/27/20 05/31/22 History bimatoprost 0.01 % eye drops 1 drp ophthalmic (eye) DAILY 02/27/20 05/31/22 History ([place]) brimonidine 0.2 % eye drops 1 drp EACH EYE DAILY 02/27/20 05/31/22 History clonidine HCl 0.1 mg tablet 0.1 mg PO DAILY 02/27/20 05/31/22 History insulin glargine 100 unit/mL (3 30 unit subcut BID 02/27/20 05/31/22 History mL) subcutaneous pen (Basaglar KwikPen U-100 Insulin) omeprazole 20 mg capsule,delayed 20 mg PO DAILY 02/27/20 05/31/22 History release calcitriol 0.25 mcg capsule 0.25 mcg PO 3XW #12 caps 04/20/22 05/31/22 Rx aspirin 81 mg chewable tablet 81 mg PO DAILY 05/31/22 05/31/22 History budesonide-formoterol HFA 160 2 puff inhalation DAILY 05/31/22 05/31/22 History mcg-4.5 mcg/actuation aerosol inhaler (Symbicort) sitagliptin phosphate 25 mg tablet 25 mg PO DAILY 05/31/22 05/31/22 History ([place]) Current Medications: Active Medications Albuterol (Albuterol Sulfate (*Sp) Aerosol 1 Puff) 2 puff INHALATION Q6H PRN PRN Reason: Shortness Of Breath Or Wheezing Amlodipine Besylate (Amlodipine Besylate 5 Mg Tablet) 5 mg PO DAILY [facility] Last Admin: 05/31/22 08:19 Dose: 5 mg Aspirin (Aspirin 81 Mg Chewable Tablet) 81 mg PO DAILY [facility] Last Admin: 05/31/22 08:19 Dose: 81 mg Atorvastatin Calcium (Atorvastatin 40 Mg Tablet) 80 mg PO DAILY [facility] Last Admin: 05/31/22 08:19 Dose: 80 mg Brimonidine Tartrate (Brimonidine Tartrate 0.2% Op Soln 5 Ml Btl) 1 drop EACH EYE DAILY [facility] Last Admin: 05/31/22 08:20 Dose: 1 drop Calcitriol (Calcitriol 0.25 Mcg Capsule) 0.25 mcg PO [id number] [facility] Last Admin: 05/31/22 08:20 Dose: 0.25 mcg Clonidine HCl (Clonidine Hcl 0.1 Mg Tablet) 0.1 mg PO DAILY [facility] Last Admin: 05/31/22 08:20 Dose: 0.1 mg Dextrose (Dextrose 50% 25 Gm/50 Ml Syringe) 12.5 gm IV PUSH PRN PRN; Protocol PRN Reason: Hypoglycemia Glucagon (Glucagon For Inj 1 Mg Vial) 1 mg IM PRN PRN; Protocol PRN Reason: Hypoglycemia Glucose (Glucose Oral Gel 15 Gm Of Glucse In 37.5 Gm Tube) 15 gm PO PRN PRN; Protocol PRN Reason: Hypoglycemia Heparin Sodium (Porcine) (Heparin Sodium 5,000 Units/Ml Vial) 4,000 units IV PUSH PRN PRN PRN Reason: aPTT less than 55 seconds Heparin Sodium (Porcine) (Heparin Sodium 5,000 Units/Ml Vial) 3,500 units IV PUSH PRN PRN PRN Reason: aPTT 55 - 70 seconds Last Admin: 05/31/22 14:37 Dose: 3,500 units Heparin Sodium/Dextrose (Heparin Sodium/D5w 100 Units/Ml) 25,000 units in 250 mls @ 10 mls/hr IV CONT .Q24H [facility]; Protocol Last Titration: 05/31/22 14:38 Dose: 1,000 units/hr, 10 mls/hr Dextrose (Dextrose 5% 1,000 Ml) 1,000 mls @ 100 mls/hr IVPB PRN PRN; Protocol PRN Reason: Hypoglycemia Nitroglycerin/Dextrose (Nitroglycerin In 5% Dextrose 50 Mg) 50 mg in 250 mls @ 0 mls/hr IV CONT .Q0M [facility]; Protocol Last Titration: 05/31/22 15:05 Dose: 0 mcg/min, 0 mls/hr Insulin Aspart (Insulin Aspart (*Bkc) 100 Units/Ml) 3 - 6 units SUB-Q Q6HR [facility]; Protocol Last Admin: 05/31/22 12:13 Dose: Not Given Insulin Glargine (Insulin Glargine (*Bkc) 100 Units/Ml) 30 units SUB-Q BID [facility] Last Admin: 05/31/22 09:40 Dose: Not Given Latanoprost (Latanoprost 0.005% Op Soln 2.5 M
--- NOTE | 2022-05-31 15:39 | PC.NURSE ---
Pt to geochemical laboratory technician via bed. Heparin gtt paused by geochemical laboratory technician staff. Family at bedside
--- NOTE | 2022-05-31 16:09 | PM.IMPN ---
Subjective Date/time seen: 05/31/22 16:09 Pt admitted this AM for NSTEMI, pt gone for heart cath, discussion with family in icu. pt has history of copd, diabetes, ckd Unfortunately pt had abnl heart cath will need to be transferred to higher level of care for bypass surgery. and CTS specialist. full DC summary to follow 1.? ? Severe 3 vessel coronary artery disease as described above with right coronary dominant circulation 2. ? total occlusion of the right coronary artery with [id number] collateral filling the vessel appears to have been stented proximally as well as distally at the bifurcation involving the PDA and PL branches as well.? These vessels are provided collateral flow from the left coronary 3. ? eccentric ostial left main stenosis 4. ? severe diffuse disease in the LAD involving 80-90% stenosis in the mid LAD at the site of the diagonal branch with moderate distal disease as described above 5. ? high-grade 99% stenosis in the trunk of the circumflex which has previously been stented also high-grade disease in the obtuse marginal branch 6. ? infero posterior akinesia global ejection fraction is about 45% Objective Data Vital Signs Vital Signs: Vital Signs - 24 hr 05/30/22 23:48 05/30/22 23:58 05/31/22 00:41 Temperature 36.6 C Pulse Rate 100 88 Respiratory Rate 20 14 Blood Pressure 174/100 H Pulse Oximetry 100 100 Oxygen Delivery Room Air Room Air 05/30/22 23:57 05/31/22 00:00 05/31/22 00:15 Temperature Pulse Rate 99 101 H 94 Respiratory Rate 13 16 18 Blood Pressure Pulse Oximetry 100 100 100 Oxygen Delivery 05/31/22 00:30 05/31/22 00:33 05/31/22 00:45 Temperature Pulse Rate 82 89 88 Respiratory Rate 18 17 Blood Pressure Pulse Oximetry 100 100 100 Oxygen Delivery 05/31/22 01:00 05/31/22 01:03 05/31/22 02:40 Temperature Pulse Rate 77 92 120 H Respiratory Rate 22 H 16 Blood Pressure 171/98 H 221/130 H Pulse Oximetry 100 100 Oxygen Delivery 05/31/22 02:42 05/31/22 01:04 05/31/22 01:15 Temperature Pulse Rate 125 H 96 96 Respiratory Rate 17 14 19 Blood Pressure Pulse Oximetry 97 100 100 Oxygen Delivery 05/31/22 01:30 05/31/22 01:32 05/31/22 01:45 Temperature Pulse Rate 104 H 106 H 107 H Respiratory Rate 18 14 21 H Blood Pressure 182/113 H Pulse Oximetry 100 100 100 Oxygen Delivery 05/31/22 02:00 05/31/22 02:02 05/31/22 02:15 Temperature Pulse Rate 108 H 108 H 109 H Respiratory Rate 24 H 17 18 Blood Pressure 158/108 H Pulse Oximetry 100 100 100 Oxygen Delivery 05/31/22 02:30 05/31/22 02:38 05/31/22 02:45 Temperature Pulse Rate 108 H 123 H 118 H Respiratory Rate 17 20 Blood Pressure 221/133 H 224/120 H Pulse Oximetry 100 Oxygen Delivery 05/31/22 02:59 05/31/22 03:02 05/31/22 02:39 Temperature Pulse Rate 107 H 105 H 122 H Respiratory Rate 19 Blood Pressure 182/115 H 179/118 H Pulse Oximetry Oxygen Delivery 05/31/22 02:43 05/31/22 02:45 05/31/22 02:46 Temperature Pulse Rate 122 H 124 H 123 H Respiratory Rate 23 H 20 20 Blood Pressure 201/122 H 212/127 H Pulse Oximetry Oxygen Delivery 05/31/22 02:50 05/31/22 03:00 05/31/22 03:01 Temperature Pulse Rate 118 H 104 H 109 H Respiratory Rate 20 23 H Blood Pressure 224/121 H 182/118 H Pulse Oximetry 100 100 99 Oxygen Delivery 05/31/22 03:02 05/31/22 03:06 05/31/22 03:07 Temperature Pulse Rate 104 H 113 H 111 H Respiratory Rate 24 H 14 19 Blood Pressure 179/118 H 171/113 H 166/107 H Pulse Oximetry 100 99 99 Oxygen Delivery 05/31/22 03:12 05/31/22 04:01 05/31/22 04:00 Temperature Pulse Rate 114 H 103 H 105 H Respiratory Rate 18 Blood Pressure 166/107 H Pulse Oximetry 96 Oxygen Delivery Room Air 05/31/22 04:00 05/31/22 06:00 05/31/22 06:00 Temperature 36.8 C 36.8 C Pulse Rate 105 H 103 H 102 H Respiratory Rate 18 18 Blood Pressure 136/98 H 119/84 P
--- NOTE | 2022-05-31 16:20 | WPDCARDPROC ---
Cardiac Cath Procedure Note Date of procedure:: 05/31/22 Performing physician:: Zohaib Kaplan MD Indication:: coronary artery disease with previous PCI acute coronary syndrome ongoing smoking Brief clinical history:: this is a 66-year-old man who has received cardiovascular care elsewhere. He previously received stenting of his coronaries back In 2006 and 2007. The details of that procedure is not available to me at the time of this dictation. he enters this hospital with accelerating exertional chest pain and troponin elevation. Patient was heparinized yesterday and received intravenous nitroglycerin and was being brought to the cardiac catheterization lab in now for angiographic reassessment. He also has significant hypertension and dyslipidemia. Procedure Procedure performed:: Left ventriculogram coronary angiogram Sedation/Medication given:: fentanyl 50 mg Versed 2 mg case start time 3:55 p.m. case end time 4:13 p.m. sedation provided by No Bueno RN, trained observer Access site:: right femoral artery Estimated blood loss:: 25 cc Procedure note:: patient was brought to the cardiac catheterization lab in the postabsorptive state femoral triangle was prepared and draped in normal fashion. Anesthesia was given with 1% lidocaine infiltrated locally. Using the modified Seldinger technique femoral artery was punctured and a 5 [place] vascular sheath was placed. After this left heart catheterization was carried out. I used a 5 [place] angled pigtail catheter to perform a left ventriculogram in the ALMAZAN projection and pressure left-sided hemodynamics. After this I used a 5 [place] JR4 catheter to engage inject the right coronary artery and then a 5 [place] FL4 catheter gait inject the left coronary artery. The cineangiograms were then reviewed and the case was terminated I elected to sew the sheath in place using a 2-0 silk tie and reorder IV heparin. Procedure was well tolerated and uncomplicated. There was no evidence of groin hematoma upon him leaving the cardiac catheterization lab. Findings:: Hemodynamics: Central aortic pressure is 142 over to end-diastolic pressure. Central aortic pressure is 142/76. There is no significant gradient on pullback across the aortic valve. Left ventricle: The LV is mildly enlarged. The infero posterior segments are akinetic. The base and midportion of the anterior wall contracts fairly well the apex is hypodynamic. The global ejection fraction of visually estimated to be 45%. The left main coronary artery is moderate caliber. There is an eccentric ostial stenosis of the left main that looks trivial in some projections and in the cranial projections appears to be possibly 70-80% ostial left main stenosis the distal left main has mild 40-50% stenosis. The left anterior descending is a severely diffusely diseased artery throughout its extent. There is no visible stent material in the LAD. There is moderate calcification and about 80-90% stenosis is seen in the midportion involving the origin the largest diagonal branch. Distal to this the LAD has moderate diffuse disease the circumflex is medium in caliber giving rise to the marginal branches. There is visible stent material in the trunk of the circumflex after the 1st OM branch and then down distally. The stented segment of the circumflex has 99% stenosis. The 1st OM branch has discrete 80-90% proximal stenosis. The right coronary artery appears to have been moderate to large caliber dominant to the posterior circulation the RCA is closed in the 2nd portion appears to be a chronic total occlusion. There is visible stent material proximal in the right coronary artery as well as distally in the RPDA as well as RPL branches. These vessels receive no antegrade filling. There is [id number] collateral filling from the left coronary to the RPDA and RPL seen on the left coronary injections described
--- NOTE | 2022-05-31 16:35 | PC.NURSE ---
Pt returned from cardiac cath tech via bed. Nitro and heparin gtt restarted per verbal order from Dr. Kaplan
[2022-05-31] MEDS: SODIUM CHLORIDE 0.9% IV 1,000 ML 125 ML IV CONT (16:40)
--- NOTE | 2022-05-31 17:09 | PM.TDS ---
Transfer Discharge Sum: Prov Provider Date of admission: 05/31/22 01:47 Primary care physician: Hal Dailey MD Admitting clinician: Dustin Naranjo MD Consults: 05/31/22 Cardiopulmonary Rehabilitation Consult Routine Comment: Consult Plan: Evaluate for Eligibility Consult to Physician Routine Comment: Consulting Provider: Taco Gonzales Reason for consultation: NSTEMI Has provider been notified: Yes 05/31/22 01:49 Consult to Physician Routine Comment: spoke w denae @ 0814 ([facility]) Consulting Provider: Denae Mcclelland square dance caller/MD group to consult: Interventional cardiology Reason for consultation: NSTEMI Has provider been notified: Yes DS: Admitting Diagnosis Discharge Date 05/31/2022 Admitting Diagnosis Chest pain DS: Discharge Diagnosis Discharge Diagnosis (1) Tobacco abuse: Code(s): Z72.0 - Tobacco use Status: Acute (2) COPD (chronic obstructive pulmonary disease): Code(s): J44.9 - Chronic obstructive pulmonary disease, unspecified Status: Acute (3) Acute non-ST elevation myocardial infarction (NSTEMI): Code(s): I21.4 - Non-ST elevation (NSTEMI) myocardial infarction Status: Acute Assessment and Plan: Pt admitted this AM for NSTEMI, pt gone for heart cath, discussion with family in icu. pt has history of copd, diabetes, ckd Unfortunately pt had abnl heart cath will need to be transferred to higher level of care for bypass surgery. and CTS specialist. full DC summary? to follow 1.? ? Severe 3 vessel coronary artery disease as described above with right coronary dominant circulation 2. ? total occlusion of the right coronary artery with [id number] collateral filling the vessel appears to have been stented proximally as well as distally at the bifurcation involving the PDA and PL branches as well.? These vessels are provided collateral flow from the left coronary 3. ? eccentric ostial left main stenosis 4. ? severe diffuse disease in the LAD involving 80-90% stenosis in the mid LAD at the site of the diagonal branch with moderate distal disease as described above 5. ? high-grade 99% stenosis in the trunk of the circumflex which has previously been stented also high-grade disease in the obtuse marginal branch 6. ? infero posterior akinesia global ejection fraction is about 45% (4) Acute hypokalemia: Code(s): E87.6 - Hypokalemia Status: Acute (5) Heart failure: Qualifiers: Heart failure chronicity: unspecified Heart failure type: unspecified Qualified Code(s): I50.9 - Heart failure, unspecified Code(s): I50.9 - Heart failure, unspecified Status: Acute (6) Stage 3a chronic kidney disease: Code(s): N18.31 - Chronic kidney disease, stage 3a Status: Acute (7) Benign hypertension with chronic kidney disease: Code(s): I12.9 - Hypertensive chronic kidney disease with stage 1 through stage 4 chronic kidney disease, or unspecified chronic kidney disease Status: Acute (8) Diabetes mellitus with chronic kidney disease: Code(s): E11.22 - Type 2 diabetes mellitus with diabetic chronic kidney disease Status: Acute Transfer Discharge Sum: Med Medications Active and Home Medications: Home Medications albuterol sulfate 90 mcg/actuation aerosol inhaler 2 puff inhalation Q6H PRN Shortness Of Breath Or Wheezing 02/27/20 [History Confirmed 05/31/22] amlodipine 5 mg tablet 5 mg PO DAILY 02/27/20 [History Confirmed 05/31/22] atorvastatin 80 mg tablet 80 mg PO DAILY 02/27/20 [History Confirmed 05/31/22] bimatoprost 0.01 % eye drops (Lumigan) 1 drp ophthalmic (eye) DAILY 02/27/20 [History Confirmed 05/31/22] brimonidine 0.2 % eye drops 1 drp EACH EYE DAILY 02/27/20 [History Confirmed 05/31/22] clonidine HCl 0.1 mg tablet 0.1 mg PO DAILY 02/27/20 [History Confirmed 05/31/22] insulin glargine 100 unit/mL (3 mL) subcutaneous pen (Basaglar KwikPen U-100 Insulin) 30 unit subcut B
[2022-05-31 17:58] LABS: Glucose Point of Care 147 mg/dl (65-105)
[2022-05-31] MEDS: NITROGLYCERIN/D5W 200 MCG/ML 50 MG/250 ML BTL 24 MG IV CONT (18:28)
[2022-05-31 20:56] LABS: Glucose Point of Care 165 mg/dl (65-105)
[2022-05-31] MEDS: LATANOPROST 0.005% OP SOLN 2.5 ML BTL 1 DROP EACH EYE (22:30)
[2022-05-31 23:44] LABS: Partial Thromboplastin Time 114.5 SECONDS (22.3-36.8)
--- NOTE | 2022-05-31 23:46 | PC.NURSE ---
Pt accepted at [facility] for further cardiac workup. Report given to Dewey RUTLEDGE. EMS arrived around 2300. Pt awake but slightly drowsy. Able to voice concerns and vitals all stable. Updated Pt Jeanine and let her know of Transfer as well as obtained consent.
== END 2022-05-31 23:22 | disposition short-term general hospital (02) | DRG 282 ==
LOC: ANHED 05-31 02:03 → ANHIMU 05-31 03:23 → ANHICU 05-31 04:05 → ANHIMU 06-01 10:14
PROVIDERS: Internal Medicine; Physician Assistant; Specialist; Admitting Provider Internal Medicine; Emergency Provider Emergency Medicine; PCP Family Medicine; Visit Provider Family Medicine
PROC: 4A023N7 Measurement of Cardiac Sampling and Pressure, Left Heart, Percutaneous Approach (ICD-10-PCS; CPT 93452; principal; 2022-05-31 15:00)
DX: I21.4 Non-ST elevation (NSTEMI) myocardial infarction (principal); I25.10 Atherosclerotic heart disease of native coronary artery without angina pectoris; F17.210 Nicotine dependence, cigarettes, uncomplicated; I12.9 Hypertensive chronic kidney disease with stage 1 through stage 4 chronic kidney disease, or unspecified chronic kidney disease; E11.22 Type 2 diabetes mellitus with diabetic chronic kidney disease; N18.31 Chronic kidney disease, stage 3a; Z95.5 Presence of coronary angioplasty implant and graft; J44.9 Chronic obstructive pulmonary disease, unspecified; Z82.49 Family history of ischemic heart disease and other diseases of the circulatory system; Z79.899 Other long term (current) drug therapy; Z88.5 Allergy status to narcotic agent
CPT/HCPCS: 36415; 71045; 80053; 81001; 82948; 83690; 83735; 83880; 84100; 84484; 85025; 85610; 85730; 93005; 93306; 93458; 94640; 96374; 96375; 99285; A9270; C1887; C1894; J1644; J2060; J2250; J3010; J7030; J7040; L1830

== ENCOUNTER 2022-09-09 16:39 | Outpatient (CLI) | payer MEDICARE, SELFPAY ==
[2022-09-09 17:29] LABS: Basophils Absolute Auto 0.1 K/mm3 (0.0-0.1); Basophils Percent Auto 0.7 % (0.2-1.2); Eosinophils Absolute Auto 0.1 K/mm3 (0-0.3); Eosinophils Percent Auto 1.6 % (0-4.4); Hematocrit 40.3 % (42.0-52.0); Hemoglobin 13.2 g/dL (14.0-18.0); Immature Granulocyte Absolute 0.01 K/mm3 (0.00-0.031); Immature Granulocyte Percent A 0.1 % (0-0.5); Lymphocytes Absolute Auto 2.59 K/mm3 (0.9-3.2); Lymphocytes Percent Auto 34.8 % (18.3-44.2); Mean Corpuscular HGB Conc 32.8 g/dl (32-36); Mean Corpuscular Hemoglobin 28.4 pg (26-34); Mean Corpuscular Volume 86.9 fl (80-100); Mean Platelet Volume 10.3 fl (7.4-10.4); Monocytes Absolute Auto 0.4 K/mm3 (0.1-0.6); Monocytes Percent Auto 5.5 % (2.6-8.5); Neutrophils Absolute Auto 4.3 K/mm3 (1.3-6.7); Neutrophils Percent Auto 57.3 % (45.5-73.1); Platelet Count Result 263 k/mm3 (150-375); Red Blood Count 4.64 M/mm3 (4.6-6.20); Red Cell Distribution Width 14.4 % (11.5-14.5); White Blood Count 7.4 K/mm3 (4.5-10.0)
[2022-09-09 17:38] LABS: Creatinine Urine 243.9 mg/dL; Total Protein Urine Random 53 mg/dL; Ur Ttl Prot Creatinine Ratio 0.22 mg/mg (0-0.20)
[2022-09-09 17:42] LABS: Albumin Level 4.5 g/dL (3.5-5.1); Anion Gap 9 mmol/L (8-16); Blood Urea Nitrogen 21 mg/dL (9-20); Calcium 9.9 mg/dL (8.4-10.2); Carbon Dioxide 26 mmol/L (22-30); Chloride 109 mmol/L (98-107); Estimated Glomerular Filt Rate 46; Glucose 114 mg/dL (65-110); Potassium 3.9 mmol/L (3.4-5.0); Sodium 144 mmol/L (137-145)
[2022-09-09 17:42] LABS: Cholesterol 325 mg/dL (0-200); HDL Direct 37 mg/dL; Triglycerides 262 mg/dL (<150)
[2022-09-09 17:47] LABS: Hemoglobin A1C 6.2 % (<5.7)
[2022-09-09 17:52] LABS: NT Pro B Type Natriuretic Pept 818 pg/mL (19.9-100)
[2022-09-09 17:54] LABS: LDL Cholesterol Direct 176 mg/dL
[2022-09-09 17:54] LABS: Parathyroid Intact 213.2 pg/mL (7.5-53.5)
[2022-09-09 18:14] LABS: Total Triiodothyronine (T3) 1.09 NG/ML (0.97-1.69)
[2022-09-09 18:22] LABS: Free T4 Free Thyroxine 1.25 ng/mL (0.78-2.19)
== END 2022-09-09 16:40 | disposition home or self-care (01) ==
PROVIDERS: PCP Family Medicine; Visit Provider Internal Medicine Nephrology
DX: N25.81 Secondary hyperparathyroidism of renal origin (principal); N18.31 Chronic kidney disease, stage 3a; I12.9 Hypertensive chronic kidney disease with stage 1 through stage 4 chronic kidney disease, or unspecified chronic kidney disease; E11.22 Type 2 diabetes mellitus with diabetic chronic kidney disease; R55 Syncope and collapse; I25.10 Atherosclerotic heart disease of native coronary artery without angina pectoris; R53.1 Weakness; R53.83 Other fatigue
CPT/HCPCS: 36415; 80061; 80069; 82570; 83036; 83880; 83970; 84156; 84439; 84443; 84480; 85025

== ENCOUNTER 2022-09-10 15:06 | Outpatient (CLI) | payer MEDICARE, SELFPAY ==
--- NOTE | 2022-09-10 | ECG_ITS ---
Measurements Intervals [place] Rate: 56 P: 73 [place]: 212 QRS: 17 QRSD: 100 T: -71 QT: 422 QTc: 411 Interpretive Statements SINUS BRADYCARDIA WITH FIRST DEGREE AV BLOCK MINIMAL Q WAVES- INFERIOR LEADS ST-T WAVE ABNORMALITY IN ANTEROLAT/INF LEADS- CONSIDER ISCHEMIA ABNORMAL ECG COMPARED TO ECG 05/31/2022 02:47:58 SINUS BRADYCARDIA NOW PRESENT FIRST DEGREE AV BLOCK NOW PRESENT ST-T WAVE ABNORMALITY NOW PRESENT Electronically Signed On 09-10-2022 20:10:34 CDT by Tony Gallegos D.O.
--- NOTE | ~2022-09-10 | US_ITS ---
EXAMINATION: US carotid duplex BI DATE: 09/10/2022 15:52 INDICATION: Syncope TECHNIQUE: Grayscale, color Doppler, and pulsed Doppler images of the cervical carotid arteries were obtained. The degree of vessel stenosis is placed in one of the following categories: normal, <50%, 5 0-69%, >=70% but less than near-occlusion, near-occlusion, or total occlusion. Note that percent sten osis relative to normal distal artery lumen diameter is indirectly measured from velocity measurement s as described by Florentino, et al. Radiology 2003; 229:340-346. Notes: Normal: Peak systolic velocity <125 centimeters/sec and no plaque <50%. Peak systolic velocity <125 ( EDV <40; ICA/CCA PSV ratio <2.0; used these factors only a tandem lesions or low cardiac output or co ntralateral disease) 50-69 %: PSV 125-230 (EDV 40-100; ratio 2-4) >= 70% but less than near occlusion: PSV greater than 230 (EDV > 100; ratio> 4.0) Near Occlusion: PSV that is variable; markedly narrowed lumen Occlusion: Absent flow on color/spectral Doppler and no lumen on eaton scale. COMPARISON: None. FINDINGS: RIGHT: The right common carotid artery (CCA) peak systolic velocity (PSV) is 64 cm/s. The right internal car otid artery (ICA) PSV is 59 cm/s. The right ICA end-diastolic velocity (EDV) is 17 cm/s. The right IC A/CCA PSV ratio is 0.9. The external carotid artery (ECA) PSV is 90 cm/s. There is antegrade flow in the right vertebral artery. LEFT: The left CCA PSV is 64 cm/s. The left ICA PSV is 86 cm/s. The left ICA EDV is 20 cm/s. The left ICA/C CA PSV ratio is 1.3. The ECA PSV is 74 cm/s. There is antegrade flow in the left vertebral artery. IMPRESSION: 1. Less than 50% stenosis in the right internal carotid artery by sonographic criteria. 2. Less than 50% stenosis in the left internal carotid artery by sonographic criteria. Reviewed, dictated and finalized at location A. IMPRESSION: 1. Less than 50% stenosis in the right internal carotid artery by sonographic amarjit lainez. 2. Less than 50% stenosis in the left internal carotid artery by sonographic hira diamond.
== END 2022-09-10 15:07 | disposition home or self-care (01) ==
PROVIDERS: PCP Family Medicine; Visit Provider Nurse Practitioner Adult Health
DX: R55 Syncope and collapse (principal); I10 Essential (primary) hypertension; I25.10 Atherosclerotic heart disease of native coronary artery without angina pectoris; I65.23 Occlusion and stenosis of bilateral carotid arteries; R00.1 Bradycardia, unspecified; I44.0 Atrioventricular block, first degree; R94.31 Abnormal electrocardiogram [ECG] [EKG]
CPT/HCPCS: 93005; 93880

== ENCOUNTER 2023-01-20 11:07 | Outpatient (CLI) | payer MEDICARE, SELFPAY ==
[2023-01-20 12:56] LABS: Albumin Level 3.9 g/dL (3.5-5.1); Anion Gap 5 mmol/L (8-16); Blood Urea Nitrogen 22 mg/dL (9-20); Calcium 9.1 mg/dL (8.4-10.2); Carbon Dioxide 30 mmol/L (22-30); Chloride 109 mmol/L (98-107); Estimated Glomerular Filt Rate 57; Glucose 106 mg/dL (65-110); Phosphorus 3.4 mg/dL (2.5-4.5); Potassium 3.8 mmol/L (3.4-5.0); Sodium 144 mmol/L (137-145)
[2023-01-20 13:20] LABS: Parathyroid Intact 190.4 pg/mL (7.5-53.5)
[2023-01-20 13:48] LABS: Vitamin D 25 Hydroxy < 12.8 ng/mL
[2023-01-20 13:54] LABS: Creatinine Urine 135.9 mg/dL; Total Protein Urine Random 96 mg/dL; Ur Ttl Prot Creatinine Ratio 0.71 mg/mg (0-0.20)
== END 2023-01-20 11:08 | disposition home or self-care (01) ==
PROVIDERS: PCP Family Medicine; Visit Provider Internal Medicine Nephrology
DX: N18.31 Chronic kidney disease, stage 3a (principal); I12.9 Hypertensive chronic kidney disease with stage 1 through stage 4 chronic kidney disease, or unspecified chronic kidney disease; E11.22 Type 2 diabetes mellitus with diabetic chronic kidney disease; N25.81 Secondary hyperparathyroidism of renal origin; E55.9 Vitamin D deficiency, unspecified
CPT/HCPCS: 36415; 80069; 82306; 82570; 83970; 84156

== ENCOUNTER 2023-03-08 16:36 | Outpatient (CLI) | payer MEDICARE, SELFPAY ==
[2023-03-08 17:19] LABS: Uric Acid 6.5 mg/dL (3.5-8.5)
[2023-03-08 17:32] LABS: Hemoglobin A1C 6.6 % (<5.7)
== END 2023-03-08 16:37 | disposition home or self-care (01) ==
LOC: ANHLAB 16:39
PROVIDERS: PCP Family Medicine; Visit Provider Family Medicine
DX: M10.9 Gout, unspecified (principal); E11.9 Type 2 diabetes mellitus without complications; I10 Essential (primary) hypertension
CPT/HCPCS: 36415; 83036; 84550

== ENCOUNTER 2023-04-05 17:06 | Observation (INO) | payer MEDICARE, SELFPAY ==
[2023-04-05] VITALS (42 sets, daily range): BP systolic 130–180; BP diastolic 75–118; PULSE 63–91; RESP 12–24; TEMP 36.4; O2SAT 97–100
--- NOTE | ~2023-04-05 | CT_ITS ---
EXAMINATION: CT brain wo con DATE: 04/05/2023 17:35 INDICATION: Syncope TECHNIQUE: Computed tomography (CT) of the head was performed without intravenous contrast. Sagittal and coronal reconstructions were performed. The mA was adjusted according to patient size. Iterative reconstruction technique was employed. The dose-length product was 681.00 mGy-cm. COMPARISON: Brain MR dated 04/30/2013 FINDINGS: Small old lacunar infarcts anteriorly at the bilateral basal ganglia as well as at the left thalamus. No acute intracranial hemorrhage, acute infarction or abnormal extra axial fluid collection. There i s extensive scattered white matter hypoattenuation consistent with chronic small vessel ischemic dise ase. Symmetric prominence of the sulci consistent with mild to moderate age-appropriate diffuse cereb ral volume loss. Ventricles are normal and symmetric. No mass/mass effect. Intracranial calcified ce rebral atherosclerosis is noted at the carotid siphons. The orbits, paranasal sinuses and mastoid air cells are normal. IMPRESSION: 1. Old lacunar infarcts at the bilateral basal ganglia and left thalamus. No acute intracranial proce ss. 2. Age-related changes including mild to moderate diffuse volume loss and extensive scattered white m atter hypoattenuation consistent with chronic small vessel ischemic disease. Reviewed, dictated and finalized at location A. DESIGNER IMPRESSION: 1. Old lacunar infarcts at the bilateral basal ganglia and left thalamus. No ac tono intracranial process. 2. Age-related changes including mild to moderate diffuse volume loss and exten sive scattered white matter hypoattenuation consistent with chronic small vesse l ischemic disease.
--- NOTE | ~2023-04-05 | XR_ITS ---
EXAMINATION: XR chest 1V portable DATE: 04/05/2023 18:12 INDICATION: Syncope. TECHNIQUE: A single frontal view of the chest was obtained. COMPARISON: Chest one view 05/31/2022, CT abdomen and pelvis 08/31/2017 FINDINGS: There is mild elevation of right hemidiaphragm. No pneumonia, pleural effusion, or pneumoth orax. The heart size is normal. Median sternotomy wires and mediastinal surgical clips are seen, like ly from prior coronary artery bypass grafting. IMPRESSION: 1. Mild elevation of right hemidiaphragm. Reviewed, dictated and finalized at location E. ION PHOTOGRAPHER
--- NOTE | 2023-04-05 17:22 | ECG_ITS ---
Measurements Intervals [place] Rate: 63 P: 12 MA: 217 QRS: 71 QRSD: 108 T: 130 QT: 437 QTc: 448 Interpretive Statements SINUS RHYTHM WITH FIRST DEGREE AV BLOCK POSSIBLE LEFT ATRIAL ENLARGEMENT [-0.1mV P-WAVE IN V1/V2] MODERATE T-WAVE ABNORMALITY, CONSIDER LATERAL ISCHEMIA [-0.1+ mV T-WAVE IN I/aVL/V5/V6] COMPARED TO ECG 09/10/2022 15:56:39 SINUS RHYTHM NOW PRESENT Electronically Signed On 04-06-2023 15:57:24 O AND M SUPERVISOR by zE Vásquez M.D.
--- NOTE | 2023-04-05 17:28 | PC.NURSE ---
pt to CT via stretcher on tele monitor at this time
--- NOTE | 2023-04-05 17:54 | ED.SYNCOPE ---
HPI - Syncope General Chief Complaint: Syncope <MINA العراقي Last Filed: 04/06/23 01:11> Stated Complaint: SYNCOPY <MINA العراقي Last Filed: 04/06/23 01:11> Time Seen by Provider: 04/05/23 17:22 <MINA العراقي Last Filed: 04/06/23 01:11> Source: patient and family <MINA العراقي Last Filed: 04/06/23 01:11> Mode of arrival: EMS <MINA العراقي Last Filed: 04/06/23 01:11> Limitations: no limitations <MINA العراقي Last Filed: 04/06/23 01:11> History of Present Illness HPI narrative: Patient is a 67-year-old male who presents the ED via EMS with report of syncope. at bedside assisted in providing information. reports patient was sitting at the table and they were opening mail together when patient had a witnessed syncopal episode. He did not fall to the ground. He was seated at the table the entire time. reports LOC for approximately 30-45 seconds. Patient was slightly out of it afterward and upon EMS's arrival. He feels better currently but does feel lightheaded with movements. Patient states he remembers feeling dizzy/lightheaded, hot, felt the need to have a bowel movement just prior to the syncopal episode occurring. Patient notes he has had similar episodes of syncope in the past and was ultimately found to have coronary disease. He underwent CABG last May and has not had a syncopal episode since then. Denies chest pain or shortness of breath currently. Denies recent illness. Denies focal weakness or numbness. <MINA العراقي Last Filed: 04/06/23 01:11> Related Data Home Medications: Home Medications Medication Instructions Recorded Confirmed albuterol sulfate 90 mcg/actuation 2 puff inhalation Q6H PRN 02/27/20 04/06/23 aerosol inhaler Shortness Of Breath Or Wheezing amlodipine 5 mg tablet 5 mg PO DAILY 02/27/20 04/06/23 atorvastatin 80 mg tablet 80 mg PO DAILY 02/27/20 04/06/23 insulin glargine 100 unit/mL (3 30 unit subcut BID 02/27/20 04/06/23 mL) subcutaneous pen (Basaglar DestiniPen U-100 Insulin) omeprazole 20 mg capsule,delayed 20 mg PO DAILY 02/27/20 04/06/23 release aspirin 81 mg chewable tablet 81 mg PO DAILY 05/31/22 04/06/23 budesonide-formoterol HFA 160 2 puff inhalation BID 05/31/22 04/06/23 mcg-4.5 mcg/actuation aerosol inhaler (Symbicort) sitagliptin phosphate 25 mg tablet 25 mg PO DAILY 05/31/22 04/06/23 (Januvia) carvedilol 12.5 mg tablet 12.5 mg PO BID 04/06/23 04/06/23 clopidogrel 75 mg tablet 75 mg PO DAILY 04/06/23 04/06/23 ezetimibe 10 mg tablet 10 mg PO DAILY 04/06/23 04/06/23 oxycodone 5 mg tablet 5 mg PO QID 04/06/23 04/06/23 tamsulosin 0.4 mg capsule 0.4 mg PO DAILY 04/06/23 04/06/23 <MINA العراقي Last Filed: 04/06/23 01:11> Allergies/Adverse Reactions: Allergies Allergy/AdvReac Type Severity Reaction Status Date / Time adhesive tape Allergy Unknown RASH Verified 04/05/23 17:17 morphine Allergy Unknown HIVES Verified 04/05/23 17:17 <MINA العراقي Last Filed: 04/06/23 01:11> Review of Systems Review of Systems: CONSTITUTIONAL: Denies fever, chills, or sweats. CARDIOVASCULAR: Denies chest pain, palpitations, or edema. RESPIRATORY: Denies dyspnea. GASTROINTESTINAL: See HPI. GENITOURINARY: Denies dysuria or hematuria. NEUROLOGIC: See HPI. <MINA العراقي Last Filed: 04/06/23 01:11> All systems reviewed & are unremarkable except as noted in HPI and below <MINA العراقي Last Filed: 04/06/23 01:11> [facility] Past Medical History Medical History: Medical History (Updated 04/06/23 @ 02:19 by Dustin Naranjo MD) Anemia CAD (coronary artery disease) CKD (chronic kidney disease) COPD (chronic obstructive pulmonary disease) Diabetes H/O colon cancer, stage I <Nichole Nguyen PA-C - Last Filed: 04/06/23 01:11> Surgical
[2023-04-05 18:22] LABS: Basophils Percent Auto 0.3 % (0.2-1.2); Eosinophils Absolute Auto 0.1 K/mm3 (0-0.3); Eosinophils Percent Auto 1.3 % (0-4.4); Hematocrit 39.8 % (42.0-52.0); Hemoglobin 12.7 g/dL (14.0-18.0); Immature Granulocyte Absolute 0.02 K/mm3 (0.00-0.031); Immature Granulocyte Percent A 0.2 % (0-0.5); Lymphocytes Percent Auto 21.1 % (18.3-44.2); Mean Corpuscular HGB Conc 31.9 g/dl (32-36); Mean Corpuscular Hemoglobin 28.7 pg (26-34); Mean Platelet Volume 10.5 fl (7.4-10.4); Monocytes Absolute Auto 0.5 K/mm3 (0.1-0.6); Monocytes Percent Auto 5.1 % (2.6-8.5); Neutrophils Absolute Auto 6.8 K/mm3 (1.3-6.7); Platelet Count Result 235 k/mm3 (150-375); Red Blood Count 4.42 M/mm3 (4.6-6.20); Red Cell Distribution Width 14.8 % (11.5-14.5); White Blood Count 9.5 K/mm3 (4.5-10.0)
[2023-04-05 18:33] LABS: Magnesium 2.3 mg/dL (1.6-2.3)
[2023-04-05 18:34] LABS: Prothrombin Time 14.2 Seconds (11.1-14.7)
[2023-04-05 18:35] LABS: Lactic Acid Reflex 1.9 mmol/L (0.7-2.0)
[2023-04-05 18:41] LABS: Alanine Aminotransferase 12 U/L (6-50); Albumin Level 3.8 g/dL (3.5-5.1); Alkaline Phosphatase 70 U/L (38-126); Anion Gap 5 mmol/L (8-16); Aspartate Amino Transferase 23 U/L (17-59); Bilirubin,Total 0.5 mg/dL (0.2-1.3); Blood Urea Nitrogen 27 mg/dL (9-20); Calcium 8.8 mg/dL (8.4-10.2); Carbon Dioxide 23 mmol/L (22-30); Chloride 112 mmol/L (98-107); Estimated CRCL calculation 37 ml/min; Estimated Glomerular Filt Rate 41; Glucose 200 mg/dL (65-110); Potassium 4.5 mmol/L (3.4-5.0); Sodium 140 mmol/L (137-145)
[2023-04-05] MEDS: SODIUM CHLORIDE 0.9% IV 1,000 ML 999 ML IV CONT ×2 (18:44→18:45)
[2023-04-05 18:47] LABS: NT Pro B Type Natriuretic Pept 448 pg/mL (19.9-100)
[2023-04-05 18:52] LABS: Troponin I < 0.012 ng/mL (0.000-0.034)
--- NOTE | 2023-04-05 19:19 | PC.NURSE ---
Report given to Niki RUTLEDGE, all questions answered
[2023-04-05 20:13] LABS: Appearance Urine Clear (Clear); Bacteria Urine None Seen /hpf; Bilirubin Urine Negative (Negative); Blood Urine Negative (Negative); Color Urine Yellow (Yellow); Glucose Urine UA Negative (Negative); Ketones Urine Negative (Negative); Leukocyte Esterase Ur Negative LEU/UL (Negative); Nitrate Urine Negative (Negative); Non Pathogenic Casts 0-2; Protein Urine 1+ mg/dL (Negative); RBC Urine 0-2 /hpf (0-2); Specific Grav Ur 1.011 (1.001-1.035); Squamous Epithelial Cell Urine None seen /hpf (Few); Urobilinogen Urine 0.2 mg/dL (<2.0); WBC Urine 0-5 /hpf; pH Urine 6.5 (5.0-9.0)
[2023-04-05 20:19] LABS: Add Urine Microscopic? YES
--- NOTE | 2023-04-05 20:58 | ECG_ITS ---
Measurements Intervals [place] Rate: 72 P: 53 MA: 238 QRS: -14 QRSD: 100 T: 269 QT: 394 QTc: 431 Interpretive Statements SINUS RHYTHM WITH FIRST DEGREE AV BLOCK MODERATE T-WAVE ABNORMALITY, CONSIDER LATERAL ISCHEMIA [-0.1+ mV T-WAVE IN I/aVL/V5/V6] ABNORMAL ECG COMPARED TO ECG 04/05/2023 17:12:09 NO SIGNIFICANT CHANGES Electronically Signed On 04-07-2023 12:17:05 BARBER STYLIST by Randy Mendoza M.D.
[2023-04-05 21:29] LABS: Troponin I < 0.012 ng/mL (0.000-0.034)
--- NOTE | 2023-04-05 21:43 | PM.IMHP ---
H&P: HPI History of Present Illness Date/Time: 04/05/23 21:43 Chief Complaint: syncope Narrative: This is a 67-year-old male with past medical history significant for CA, coronary artery disease status post three-vessel coronary artery bypass graft, insulin-dependent diabetes mellitus, chronic kidney disease, COPD. patient presents to the emergency room after having episode of syncope while sitting in at the table with his . patient was brought to the emergency room via EMS. At the time of my visit patient was denying any complaints he was dizzy and lightheaded upon standing while in the emergency room denied any chest pain, has been his usual state of health up until this moment. No fevers no rigors no chills no cough no sputum production no nausea no vomiting no diarrhea no leg swelling no shortness of breath. Preliminary workup was significant for patient found orthostatic in the emergency room patient is been placed in observation for further evaluation management and treatment. EXAMINATION: CT brain wo con DATE: 04/05/2023 17:35 INDICATION: Syncope TECHNIQUE: Computed tomography (CT) of the head was performed without intravenous contrast. Sagittal and coronal reconstructions were performed. The mA was adjusted according to patient size. Iterative reconstruction technique was employed. The dose-length product was 681.00 mGy-cm. COMPARISON: Brain MR dated 04/30/2013 FINDINGS: Small old lacunar infarcts anteriorly at the bilateral basal ganglia as well as at the left thalamus. No acute intracranial hemorrhage, acute infarction or abnormal extra axial fluid collection. There is extensive scattered white matter hypoattenuation consistent with chronic small vessel ischemic disease. Symmetric prominence of the sulci consistent with mild to moderate age-appropriate diffuse cerebral volume loss.? Ventricles are normal and symmetric. No mass/mass effect. Intracranial calcified cerebral atherosclerosis is noted at the carotid siphons. The orbits, paranasal sinuses and mastoid air cells are normal. IMPRESSION: 1. Old lacunar infarcts at the bilateral basal ganglia and left thalamus. No acute intracranial process. 2. Age-related changes including mild to moderate diffuse volume loss and extensive scattered white matter hypoattenuation consistent with chronic small vessel ischemic disease. EXAMINATION: XR chest 1V portable DATE: 04/05/2023 18:12 INDICATION: Syncope. TECHNIQUE: A single frontal view of the chest was obtained. COMPARISON: Chest one view 05/31/2022, CT abdomen and pelvis 08/31/2017 FINDINGS: There is mild elevation of right hemidiaphragm. No pneumonia, pleural effusion, or pneumothorax. The heart size is normal. Median sternotomy wires and mediastinal surgical clips are seen, likely from prior coronary artery bypass grafting. IMPRESSION: 1. Mild elevation of right hemidiaphragm. Review of Systems Review of Systems: Syncopal episode Constitutional: Constitutional: Denies chills, Denies fatigue, Denies fever(s), Denies malaise and Denies night sweats Eyes: Eyes: Denies change in vision ENT: Denies dysphagia and Denies odynophagia Cardiovascular: Cardiovascular: Denies chest pain, Reports syncope, Denies leg edema, Reports lightheadedness, Denies radiating jaw, neck or arm pain and Denies palpitations Respiratory: Respiratory: Denies cough and Denies excessive phlegm production Gastrointestinal: Gastrointestinal: Denies abdominal pain, Denies dyspepsia, Denies heartburn, Denies diarrhea, Denies nausea and Denies vomiting Genitourinary: Genitourinary: Denies dysuria Musculoskeletal: Musculoskeletal: Denies arthralgias Integumentary/Breasts: Skin/Breast: Denies rash Neurologic: Denies focal weakness and Denies Sensory deficit (Neuro) Psychiatric: Psychiatric: Reports no additional psychiatric complaints and Reports as per HPI Endocrine: Endocrine: Denies cold intolerance, Denies flushing, Denie
[2023-04-06] VITALS (15 sets, daily range): BP systolic 145–174; BP diastolic 73–94; PULSE 68–83; RESP 14–18; TEMP 36.2–36.9; O2SAT 100; BMI 25.9; BMI 26.0
[2023-04-06 00:54] LABS: Troponin I < 0.012 ng/mL (0.000-0.034)
--- NOTE | 2023-04-06 06:00 | ECHO_ITS ---
Patient Info Name: Adalberto Hogan Age: 67 years : 1955 Gender: Male Ht: 72 in Wt: 296 lbs BSA: 2.67 m2 HR: 80 bpm BP: 145 / 85 mmHg Heart Rhythm: Sinus Rhythm Technical Quality: Good Exam Date: 04/06/2023 9:46 AM Exam Location: Echo Lab Patient Status: Outpatient Admit Date: 04/05/2023 Staff Ordering Physician: Nichole Nguyen PA-C Heater Installer: Elijah Huntley RDCS Attending Provider: Dustin Naranjo MD Referring Physician: Patrick ROSENTHAL; Exam Type: CA echo doppler color flow Study Info Indications - syncope, ef 35%, hx cad Complete two-dimensional, color flow and Doppler transthoracic echocardiogram is performed. Summary 1. Complete two-dimensional, color flow and Doppler transthoracic echocardiogram is performed. 2. Left ventricular chamber dimension is normal. 3. Left ventricular systolic function is normal, estimated at 55-60%. 4. There is moderately increased left ventricular wall thickness. 5. The left ventricular diastolic function is grade I diastolic dysfunction. 6. There is mild tricuspid valve regurgitation. 7. No pulmonary hypertension, estimated pulmonary arterial systolic pressure is 21 mmHg. 8. There is no aortic valve stenosis. 9. There is no mitral valve regurgitation. Left Ventricle Left ventricular chamber dimension is normal. Left ventricular systolic function is normal, estimated at 55-60%. There is moderately increased left ventricular wall thickness. The left ventricular diastolic function is grade I diastolic dysfunction. Right Ventricle Right ventricular chamber dimension is normal. Right ventricular systolic function is normal. Left Atria Left atrial chamber dimension is normal. Right Atria Right atrial chamber dimension is normal. Atrial Septum Aneurysmal motion of the atrial septum. Aortic Valve The aortic valve is trileaflet. There is no aortic valve stenosis. There is trace aortic valve regurgitation. Pulmonic Valve The pulmonic valve is not well visualized. There is mild pulmonic regurgitation. Mitral Valve The mitral valve has thickened leaflets. There is no mitral valve regurgitation. The mitral valve annulus is moderately calcified. Tricuspid Valve The tricuspid valve leaflets are normal. There is mild tricuspid valve regurgitation. No pulmonary hypertension, estimated pulmonary arterial systolic pressure is 21 mmHg. Pericardium/Pleural The pericardium appears normal. There is no pericardial effusion. Aorta The aortic root size at the sinus of Valsalva is normal. Left Ventricular Outflow Tract Name Value Normal LVOT 2D LVOT Diameter 2.2 cm LVOT Doppler LVOT Peak Gradient 3 mmHg LVOT Mean Gradient 2 mmHg LVOT VTI 14 cm LVOT VTI/AV VTI Ratio 0.7 LVOT Stroke Volume 53 ml LVOT CO 4.4 l/min LVOT CI 1.6 l/min/m2 Pulmonic Valve Name Value Normal
--- NOTE | 2023-04-06 07:18 | ECG_ITS ---
Measurements Intervals [place] Rate: 70 P: 75 PA: 239 QRS: 13 QRSD: 105 T: -85 QT: 392 QTc: 425 Interpretive Statements SINUS RHYTHM WITH FIRST DEGREE AV BLOCK POSSIBLE INFERIOR MYOCARDIAL INFARCTION , OF INDETERMINATE AGE [30 ms Q WAVE IN II/aVF] NONSPECIFIC T-WAVE ABNORMALITY ABNORMAL ECG COMPARED TO ECG 04/05/2023 20:58:01 NO SIGNIFICANT CHANGES Electronically Signed On 04-06-2023 16:23:06 SECRET CODE EXPERT by Randy Mendoza M.D.
[2023-04-06 07:51] LABS: Glucose Point of Care 95 mg/dl (65-105)
[2023-04-06 11:24] LABS: Glucose Point of Care 148 mg/dl (65-105)
--- NOTE | 2023-04-06 12:43 | PM.IMPN ---
Progress Note: A&P Assessment and Plan (1) Syncope and collapse: Code(s): R55 - Syncope and collapse Status: Acute Assessment and Plan: Improved with fluid hydration watch vitals Order PT/ OT sp CABG surgery ?likely to be vasovagal in nature decrease Bp meds to half dose ?will obtain an echocardiogram in a.m. CT brain shows - Old lacunar infarcts at the bilateral basal ganglia and left thalamus. No acute intracranial process. 2. Age-related changes including mild to moderate diffuse volume loss and extensive scattered white matter hypoattenuation consistent with chronic small vessel ischemic disease. (2) Orthostatic hypotension: Code(s): I95.1 - Orthostatic hypotension Status: Acute Assessment and Plan: Improved with fluid hydration (3) Lightheadedness: Code(s): R42 - Dizziness and giddiness Status: Acute Assessment and Plan: Orthostatics, fluid hydration, tele monitoring (4) CKD (chronic kidney disease): Qualifiers: Chronic kidney disease stage: unspecified stage Qualified Code(s): N18.9 - Chronic kidney disease, unspecified Code(s): N18.9 - Chronic kidney disease, unspecified Status: Acute Assessment and Plan: WAtch BMp (5) Hx of CABG: Code(s): Z95.1 - Presence of aortocoronary bypass graft Status: Acute Assessment and Plan: PT/ OT Subjective Date/time seen: 04/06/23 12:43 Interval history: 67-year-old male with past medical history significant for [place], coronary artery disease status post three-vessel coronary artery bypass graft, insulin-dependent diabetes mellitus, chronic kidney disease, COPD. patient presents to the emergency room after having episode of syncope while sitting in at the table with his .? patient was brought to the emergency room via EMS.? Pt found to be orthostatic on admission had fluids continue to watch orthostatics in hospital, BP pressures recently increased pt had a recent CABG surgery. Pt states he finds difficulty walking and has leg pains. Order pT/ OT in hospital Watch Bp s and orthostatics today Review of Systems Review of Systems: Sweating syncope hypotension on admission Objective Data Vital Signs Vital Signs: Vital Signs - 24 hr 04/05/23 17:07 04/05/23 17:18 04/05/23 17:25 Temperature 36.4 C Pulse Rate 63 63 Respiratory Rate 15 Blood Pressure 131/80 Pulse Oximetry 100 100 Oxygen Delivery Room Air Room Air 04/05/23 18:05 04/05/23 18:05 04/05/23 18:08 Temperature Pulse Rate 63 70 73 Respiratory Rate Blood Pressure 161/75 H 155/87 H 130/91 H Pulse Oximetry Oxygen Delivery 04/05/23 18:26 04/05/23 17:10 04/05/23 18:15 Temperature Pulse Rate 68 63 63 Respiratory Rate 15 14 17 Blood Pressure 147/81 H Pulse Oximetry 100 Oxygen Delivery 04/05/23 18:27 04/05/23 18:30 04/05/23 18:32 Temperature Pulse Rate 69 66 71 Respiratory Rate 13 12 15 Blood Pressure 147/81 H 146/76 H Pulse Oximetry 100 100 100 Oxygen Delivery 04/05/23 18:45 04/05/23 18:47 04/05/23 19:00 Temperature Pulse Rate 75 72 67 Respiratory Rate 14 13 16 Blood Pressure 143/92 H Pulse Oximetry 100 100 100 Oxygen Delivery 04/05/23 19:02 04/05/23 19:15 04/05/23 19:17 Temperature Pulse Rate 71 70 70 Respiratory Rate 15 18 16 Blood Pressure 158/82 H 169/97 H Pulse Oximetry 100 100 100 Oxygen Delivery 04/05/23 19:30 04/05/23 19:32 04/05/23 19:33 Temperature Pulse Rate 80 86 79 Respiratory Rate 18 15 Blood Pressure 145/94 H Pulse Oximetry 97 100 100 Oxygen Delivery 04/05/23 19:45 04/05/23 20:17 04/05/23 20:25 Temperature Pulse Rate 78 73 69 Respiratory Rate 14 Blood Pressure 180/94 H 150/90 H Pulse Oximetry 100 100 Oxygen Delivery 04/05/23 20:25 04/05/23 20:27 04/05/23 20:28 Temperature Pulse Rate 72 91 89 Respiratory Rate 24 H 23 H 19 Blood Pressure 150/90 H
[2023-04-06] MEDS: CLOPIDOGREL BISULFATE 75 MG TABLET PO (13:38)
[2023-04-06] MEDS: amLODIPine BESYLATE 5 MG TABLET PO (13:38)
[2023-04-06] MEDS: EZETIMIBE 10 MG TABLET PO (13:38)
[2023-04-06] MEDS: ATORVASTATIN 40 MG TABLET 80 MG PO (13:38)
[2023-04-06] MEDS: ASPIRIN 81 MG CHEWABLE TABLET PO (13:38)
[2023-04-06] MEDS: PANTOPRAZOLE 40 MG TABLET PO (13:38)
[2023-04-06] MEDS: TAMSULOSIN HCL 0.4 MG CAPSULE PO (13:38)
[2023-04-06] MEDS: oxyCODONE HCL (*CRX) 5 MG TAB IR PO ×3 (13:38→20:32)
[2023-04-06] MEDS: LOSARTAN POTASSIUM 25 MG TABLET PO (13:39)
[2023-04-06] MEDS: carvediloL 12.5 MG TABLET PO (16:24)
[2023-04-06 16:44] LABS: Glucose Point of Care 133 mg/dl (65-105)
[2023-04-06] MEDS: INSULIN GLARGINE (*BKC) 100 UNITS/ML 30 UNITS SUB-Q (20:33)
[2023-04-06 20:39] LABS: Glucose Point of Care 176 mg/dl (65-105)
[2023-04-06] MEDS: FLUTICASONE/SALMETEROL 115-21 MCG INHALER 1 PUFF 2 PUFF INHALATION (21:10)
[2023-04-07] VITALS (7 sets, daily range): BP systolic 150; BP diastolic 78; PULSE 64–92; RESP 14–18; TEMP 36.3–36.7; O2SAT 99–100
[2023-04-07 06:04] LABS: Anion Gap 8 mmol/L (8-16); Blood Urea Nitrogen 20 mg/dL (9-20); Calcium 9.1 mg/dL (8.4-10.2); Carbon Dioxide 20 mmol/L (22-30); Chloride 114 mmol/L (98-107); Estimated CRCL calculation 41 ml/min; Estimated Glomerular Filt Rate 46; Glucose 113 mg/dL (65-110); Potassium 3.9 mmol/L (3.4-5.0); Sodium 142 mmol/L (137-145)
[2023-04-07] MEDS: amLODIPine BESYLATE 5 MG TABLET PO (08:53)
[2023-04-07] MEDS: ERGOCALCIFEROL 50,000 UNITS CAPSULE 50000 UNITS PO (08:53)
[2023-04-07] MEDS: oxyCODONE HCL (*CRX) 5 MG TAB IR PO ×2 (08:53→13:56)
[2023-04-07] MEDS: CLOPIDOGREL BISULFATE 75 MG TABLET PO (08:53)
[2023-04-07] MEDS: ATORVASTATIN 40 MG TABLET 80 MG PO (08:53)
[2023-04-07] MEDS: PANTOPRAZOLE 40 MG TABLET PO (08:54)
[2023-04-07] MEDS: TAMSULOSIN HCL 0.4 MG CAPSULE PO (08:54)
[2023-04-07] MEDS: EZETIMIBE 10 MG TABLET PO (08:54)
[2023-04-07] MEDS: ASPIRIN 81 MG CHEWABLE TABLET PO (08:54)
[2023-04-07] MEDS: carvediloL 12.5 MG TABLET PO (08:54)
[2023-04-07] MEDS: LOSARTAN POTASSIUM 25 MG TABLET PO (08:54)
[2023-04-07] MEDS: INSULIN GLARGINE (*BKC) 100 UNITS/ML 30 UNITS SUB-Q (08:55)
[2023-04-07] MEDS: FLUTICASONE/SALMETEROL 115-21 MCG INHALER 1 PUFF 2 PUFF INHALATION (09:20)
--- NOTE | 2023-04-07 13:31 | PM.DS ---
DS: Admitting Diagnosis Discharge Date 04/07/2023 Admitting Diagnosis Syncope DS: Discharge Diagnosis Discharge Diagnosis (1) Syncope and collapse: Code(s): R55 - Syncope and collapse Status: Acute Assessment and Plan: Improved with fluid hydration Pt was positive for orthostatic tilt on admission Order PT/ OT sp CABG surgery one year ago Likely to be vasovagal in nature plan to decrease Bp meds to half dose and obtain an echocardiogram in a.m. Echo shows - Left ventricular systolic function is normal, estimated at 55-60%. ? 4. There is moderately increased left ventricular wall thickness. ? 5. The left ventricular diastolic function is grade I diastolic dysfunction. ? 6. There is mild tricuspid valve regurgitation. ? 7. No pulmonary hypertension, estimated pulmonary arterial systolic pressure is 21 mmHg. ? 8. There is no aortic valve stenosis. ? 9. There is no mitral valve regurgitation. CT brain shows - Old lacunar infarcts at the bilateral basal ganglia and left thalamus. No acute intracranial process. 2. Age-related changes including mild to moderate diffuse volume loss and extensive scattered white matter hypoattenuation consistent with chronic small vessel ischemic disease. (2) Orthostatic hypotension: Code(s): I95.1 - Orthostatic hypotension Status: Acute Assessment and Plan: Improved with fluid hydration, resolved (3) Lightheadedness: Code(s): R42 - Dizziness and giddiness Status: Acute Assessment and Plan: Resolved after fluid hydration (4) CKD (chronic kidney disease): Qualifiers: Chronic kidney disease stage: unspecified stage Qualified Code(s): N18.9 - Chronic kidney disease, unspecified Code(s): N18.9 - Chronic kidney disease, unspecified Status: Acute Assessment and Plan: Creat is 1.8, pts baseline is 1.5 (5) Hx of CABG: Code(s): Z95.1 - Presence of aortocoronary bypass graft Status: Acute Assessment and Plan: PT/ OT DS: Summary Hospital Course Hospital Course: 67-year-old male with past medical history significant for [place], coronary artery disease status post three-vessel coronary artery bypass graft, insulin-dependent diabetes mellitus, chronic kidney disease, COPD. patient presents to the emergency room after having episode of syncope while sitting in at the table with his .? patient was brought to the emergency room via EMS.? Pt found to be orthostatic on admission had fluids continue to watch orthostatics in hospital, had a recent CABG surgery. Pt states he finds difficulty walking and has leg pains. Order PT/ OT in hospital, Pt is ok to Dc with HH theraphy. Time Spent with Patient Time attestation: Total time spent providing and/or coordinating discharge services:40 minutes on day of DC DS: Data Data Completed and Pending Labs on day of discharge: Labs from last 24 hours 04/07/23 04/06/23 04/06/23 05:17 20:01 16:41 Sodium 142 Potassium 3.9 Chloride 114 H Carbon Dioxide 20 L Anion Gap 8 BUN 20 Creatinine 1.80 H Estim Creat Clear Calc 41 Estimated GFR 46 L Glucose 113 H POC Capillary Glucose 176 H 133 H Calcium 9.1 Discharge Plan Discharge Attending physician on discharge: Karina Mcgee Consulting providers: Nichole Nguyen Discharging Clinician: Karina Mcgee Anticipated Discharge Date/Time: 04/07/23 13:29 Patient Disposition: Home Health Service Activity: as tolerated Diet: heart healthy Discharge Instructions: Per Care Coordination Patient will have [facility] for RN, PT, OT [phone] RN Please fax completed dischaerge instructions to [phone] Patient Instructions: Antibiotic Form Stand Alone Forms: General Discharge Information Follow-up/Referrals: Hal Dailey MD [Primary Care Provider] - Discharge Medications: New losartan 25 m
--- NOTE | 2023-04-07 17:14 | PC.NURSE ---
Irlanda Roles RN watching my patients while I am off the floor for meeting from [id number]
== END 2023-04-07 15:20 | disposition home health service (06) ==
LOC: ANHED 21:52 → ANH3MEDSUR 23:56
PROVIDERS: Admitting Provider Internal Medicine; Emergency Provider Physician Assistant; PCP Family Medicine; Visit Provider Family Medicine
DX: I95.1 Orthostatic hypotension (principal); I25.10 Atherosclerotic heart disease of native coronary artery without angina pectoris; Z95.1 Presence of aortocoronary bypass graft; Z95.5 Presence of coronary angioplasty implant and graft; R94.31 Abnormal electrocardiogram [ECG] [EKG]; J44.9 Chronic obstructive pulmonary disease, unspecified; I51.89 Other ill-defined heart diseases; E11.22 Type 2 diabetes mellitus with diabetic chronic kidney disease; N18.9 Chronic kidney disease, unspecified; D63.1 Anemia in chronic kidney disease; I25.2 Old myocardial infarction; F17.210 Nicotine dependence, cigarettes, uncomplicated; F12.90 Cannabis use, unspecified, uncomplicated; Z85.038 Personal history of other malignant neoplasm of large intestine; Z86.73 Personal history of transient ischemic attack (TIA), and cerebral infarction without residual deficits; Z79.51 Long term (current) use of inhaled steroids; Z79.4 Long term (current) use of insulin; Z79.82 Long term (current) use of aspirin; Z79.84 Long term (current) use of oral hypoglycemic drugs; Z79.02 Long term (current) use of antithrombotics/antiplatelets; Z79.891 Long term (current) use of opiate analgesic; Z83.3 Family history of diabetes mellitus
CPT/HCPCS: 36415; 70450; 71045; 80048; 80053; 81001; 82948; 83605; 83735; 83880; 84484; 85025; 85610; 85730; 93005; 93306; 94640; 96360; 97161; 97165; 97535; 99285; A9270; G0378; J1815; J7030

== ENCOUNTER 2023-05-28 18:59 | Emergency (ER) | payer MEDICARE, SELFPAY ==
[2023-05-28] VITALS (11 sets, daily range): BP systolic 162–221; BP diastolic 87–112; PULSE 64–73; RESP 12–19; TEMP 36.4; O2SAT 96–100
--- NOTE | ~2023-05-28 | CT_ITS ---
EXAMINATION: CT brain wo con DATE: 05/28/2023 22:02 INDICATION: Altered mental status. Syncope. TECHNIQUE: Computed tomography (CT) of the head was performed without intravenous contrast. The mA wa s adjusted according to patient size. Iterative reconstruction technique was employed. The dose-lengt h product was 681.00 mGy-cm. COMPARISON: Head CT 04/05/2023 FINDINGS: There are old infarcts involving the bilateral basal ganglia, internal capsules, and left t halamus. There are scattered areas of low attenuation in the cerebral white matter. There is no intra cranial hemorrhage, acute infarction, or abnormal intracranial mass lesion. The ventricles are normal in size. The orbits are normal. There is mild mucosal thickening in the paranasal sinuses. There is a small right mastoid effusion. IMPRESSION: 1. Old infarcts involving the bilateral basal ganglia, bilateral internal capsules, and left thalamus . 2. Stable extensive nonspecific cerebral white matter disease, which likely represents chronic small vessel ischemic disease. Reviewed, dictated and finalized at location E. IMPRESSION: 1. Old infarcts involving the bilateral basal ganglia, bilateral internal capsu les, and left thalamus. 2. Stable extensive nonspecific cerebral white matter disease, which likely rep resents chronic small vessel ischemic disease.
--- NOTE | ~2023-05-28 | XR_ITS ---
EXAMINATION: XR chest 1V portable DATE: 05/28/2023 21:52 INDICATION: Congestive heart failure. TECHNIQUE: A single frontal view of the chest was obtained. COMPARISON: Chest single view 04/05/2023 FINDINGS: There is chronic mild elevation of right hemidiaphragm. No pneumonia, pleural effusion, or pneumothorax. The heart size is normal. Median sternotomy wires and mediastinal surgical clips are se en, likely from prior coronary artery bypass grafting. Retained epicardial pacer wires are noted. IMPRESSION: 1. No acute cardiopulmonary disease. Reviewed, dictated and finalized at location E.
--- NOTE | ~2023-05-28 | CT_ITS ---
EXAMINATION: CTA chest PE protocol DATE: 05/28/2023 22:02 INDICATION: Syncope. TECHNIQUE: Computed tomography angiography (CTA) of the chest was performed with 100 mL Omnipaque-350 intravenous contrast timed to evaluate the pulmonary arteries. Coronal maximum intensity projection 3D-reconstructions were created by the technologist. Automated exposure control and iterative reconst ruction technique were employed. The dose-length product was 651.72 mGy-cm. COMPARISON: None. FINDINGS: The lungs demonstrate mild atelectasis. There is mild bronchiectasis in the inferior lungs. No pleural effusion. Cardiomegaly is noted. There are coronary artery calcifications. There are martinez ges of coronary artery bypass grafting. There is no pulmonary embolus. Partially visualized is a 10 m m cyst in right kidney. There is mild thoracic spondylosis. IMPRESSION: 1. No pulmonary embolus. Reviewed, dictated and finalized at location E. IMPRESSION: 1. No pulmonary embolus.
--- NOTE | 2023-05-28 19:13 | ECG_ITS ---
SEE SCANNED COPY FOR CONFIRMED REPORT MTDD
--- NOTE | 2023-05-28 19:47 | ED.GENADULT ---
HPI - General Adult General Chief complaint: Syncope <Neftaly Deleon, DO - Last Filed: 07/02/23 14:39> Stated complaint: syncope <Neftaly Deleon, DO - Last Filed: 07/02/23 14:39> Time Seen by Provider: 05/28/23 19:18 <Neftaly Deleon, DO - Last Filed: 07/02/23 14:39> History of Present Illness HPI narrative: 67-year-old male with past medical history of CAD, HTN, dyslipidemia, CABG surgery 1 year prior to arrival presents for evaluation after he had a syncopal event at home. Patient states that he was eating dinner and drinks some wine and became very nauseated and vomited. Patient's called EMS after the patient had a brief syncopal episode PE. Patient has no memory of these events. He denies chest pain or shortness of breath. <Neftaly Deleon, DO - Last Filed: 07/02/23 14:39> Related Data Home medications: Home Medications Medication Instructions Recorded Confirmed albuterol sulfate 90 mcg/actuation 2 puff inhalation Q6H PRN 02/27/20 04/06/23 aerosol inhaler Shortness Of Breath Or Wheezing amlodipine 5 mg tablet 5 mg PO DAILY 02/27/20 04/06/23 atorvastatin 80 mg tablet 80 mg PO DAILY 02/27/20 04/06/23 insulin glargine 100 unit/mL (3 30 unit subcut BID 02/27/20 04/06/23 mL) subcutaneous pen (Reneeagltabitha Rowland U-100 Insulin) omeprazole 20 mg capsule,delayed 20 mg PO DAILY 02/27/20 04/06/23 release aspirin 81 mg chewable tablet 81 mg PO DAILY 05/31/22 04/06/23 budesonide-formoterol HFA 160 2 puff inhalation BID 05/31/22 04/06/23 mcg-4.5 mcg/actuation aerosol inhaler (Symbicort) sitagliptin phosphate 25 mg tablet 25 mg PO DAILY 05/31/22 04/06/23 (Januvia) carvedilol 12.5 mg tablet 12.5 mg PO BID 04/06/23 04/06/23 clopidogrel 75 mg tablet 75 mg PO DAILY 04/06/23 04/06/23 ezetimibe 10 mg tablet 10 mg PO DAILY 04/06/23 04/06/23 oxycodone 5 mg tablet 5 mg PO QID 04/06/23 04/06/23 tamsulosin 0.4 mg capsule 0.4 mg PO DAILY 04/06/23 04/06/23 <Neftaly Deleon, - Last Filed: 07/02/23 14:39> Allergies/adverse reactions: Allergies Allergy/AdvReac Type Severity Reaction Status Date / Time adhesive tape Allergy Unknown RASH Verified 04/05/23 17:17 morphine Allergy Unknown HIVES Verified 04/05/23 17:17 <Neftaly Deleon, - Last Filed: 07/02/23 14:39> Review of Systems Review of Systems: CONSTITUTIONAL: Denies fever, chills, or sweats. EYES: Denies visual changes, redness, or discharge. ENT: Denies rhinorrhea, congestion, sore throat, or otalgia. CARDIOVASCULAR: Denies chest pain, palpitations, or edema. RESPIRATORY: Denies cough or dyspnea. GASTROINTESTINAL: Denies abdominal pain, nausea, vomiting, or diarrhea. GENITOURINARY: Denies dysuria or hematuria. SKIN: Denies rash or itching. MUSCULOSKELETAL: Denies back pain, joint pain, or myalgia. NEUROLOGIC: Denies headache, numbness, or weakness. PSYCHIATRIC: Denies anxiety or depression. <Neftaly Deleon, - Last Filed: 07/02/23 14:39> [facility] Past Medical History Medical History: Medical History Anemia CAD (coronary artery disease) CKD (chronic kidney disease) COPD (chronic obstructive pulmonary disease) Diabetes H/O colon cancer, stage I <Neftaly Deleon DO - Last Filed: 07/02/23 14:39> Surgical History Surgical History: Surgical History Hx of CABG Stented coronary artery <Neftaly Deleon DO - Last Filed: 07/02/23 14:39> Family History Family History: Family History Father Cerebrovascular accident Sibling Family history of diabetes mellitus in first degree relative Family history of heart disease in male family member before age 55 <Neftaly Deleon DO - Last Filed: 07/02/23 14:39> Social History Social History: Social History (Reviewed 05/28/23 @
[2023-05-28] MEDS: ASPIRIN 81 MG CHEWABLE TABLET 324 MG PO (20:32)
[2023-05-28 20:44] LABS: Basophils Percent Auto 0.4 % (0.2-1.2); Eosinophils Absolute Auto 0.2 K/mm3 (0-0.3); Eosinophils Percent Auto 1.6 % (0-4.4); Hematocrit 41.5 % (42.0-52.0); Hemoglobin 13.7 g/dL (14.0-18.0); Immature Granulocyte Absolute 0.03 K/mm3 (0.00-0.031); Immature Granulocyte Percent A 0.3 % (0-0.5); Lymphocytes Absolute Auto 1.89 K/mm3 (0.9-3.2); Lymphocytes Percent Auto 19.1 % (18.3-44.2); Mean Corpuscular Hemoglobin 28.8 pg (26-34); Mean Corpuscular Volume 87.4 fl (80-100); Mean Platelet Volume 10.2 fl (7.4-10.4); Monocytes Absolute Auto 0.5 K/mm3 (0.1-0.6); Monocytes Percent Auto 4.6 % (2.6-8.5); Neutrophils Absolute Auto 7.3 K/mm3 (1.3-6.7); Platelet Count Result 227 k/mm3 (150-375); Red Blood Count 4.75 M/mm3 (4.6-6.20); Red Cell Distribution Width 14.8 % (11.5-14.5); White Blood Count 9.9 K/mm3 (4.5-10.0)
[2023-05-28 20:55] LABS: Prothrombin Time 13.2 Seconds (11.1-14.7)
[2023-05-28 20:56] LABS: Partial Thromboplastin Time 27.3 Seconds (22.3-36.8)
[2023-05-28 20:57] LABS: Alanine Aminotransferase 13 U/L (6-50); Albumin Level 4.4 g/dL (3.5-5.1); Alkaline Phosphatase 74 U/L (38-126); Anion Gap 9 mmol/L (4-12); Aspartate Amino Transferase 21 U/L (17-59); Bilirubin,Total 0.5 mg/dL (0.2-1.3); Blood Urea Nitrogen 21 mg/dL (9-20); Carbon Dioxide 24 mmol/L (22-30); Chloride 112 mmol/L (98-107); Estimated CRCL calculation 34 ml/min; Estimated Glomerular Filt Rate 36; Glucose 152 mg/dL (65-110); Potassium 4.1 mmol/L (3.4-5.0); Sodium 145 mmol/L (137-145)
[2023-05-28 20:59] LABS: D Dimer 0.97 ug/mL (<0.48)
[2023-05-28 21:06] LABS: NT Pro B Type Natriuretic Pept 1490 pg/mL (19.9-100)
[2023-05-28 21:10] LABS: Troponin I < 0.012 ng/mL (0.000-0.034)
[2023-05-28] MEDS: hydrALAZINE HCL 20 MG/ML VIAL 10 MG IV PUSH (23:15)
== END 2023-05-28 23:55 | disposition home or self-care (01) ==
PROVIDERS: Emergency Medicine; Emergency Provider Emergency Medicine; PCP Family Medicine
DX: R55 Syncope and collapse (principal); I25.10 Atherosclerotic heart disease of native coronary artery without angina pectoris; E78.5 Hyperlipidemia, unspecified; E11.22 Type 2 diabetes mellitus with diabetic chronic kidney disease; N18.9 Chronic kidney disease, unspecified; I12.9 Hypertensive chronic kidney disease with stage 1 through stage 4 chronic kidney disease, or unspecified chronic kidney disease; D64.9 Anemia, unspecified; F17.210 Nicotine dependence, cigarettes, uncomplicated; Z95.1 Presence of aortocoronary bypass graft; Z95.5 Presence of coronary angioplasty implant and graft; Z85.038 Personal history of other malignant neoplasm of large intestine; Z79.82 Long term (current) use of aspirin; Z79.84 Long term (current) use of oral hypoglycemic drugs; Z79.4 Long term (current) use of insulin; Z79.02 Long term (current) use of antithrombotics/antiplatelets; I44.0 Atrioventricular block, first degree; R94.31 Abnormal electrocardiogram [ECG] [EKG]
CPT/HCPCS: 36415; 70450; 71045; 71275; 80053; 83880; 84484; 85025; 85380; 85610; 85730; 93005; 96374; 99284; A9270; J0360; Q9967

== ENCOUNTER 2023-07-01 10:48 | Outpatient (CLI) | payer MEDICARE, SELFPAY ==
[2023-07-01 11:38] LABS: Albumin Level 4.2 g/dL (3.5-5.1); Anion Gap 6 mmol/L (4-12); Blood Urea Nitrogen 23 mg/dL (9-20); Calcium 9.2 mg/dL (8.4-10.2); Carbon Dioxide 25 mmol/L (22-30); Chloride 112 mmol/L (98-107); Estimated Glomerular Filt Rate 43; Glucose 169 mg/dL (65-110); Phosphorus 3.5 mg/dL (2.5-4.5); Potassium 4.3 mmol/L (3.4-5.0); Sodium 143 mmol/L (137-145)
[2023-07-01 12:03] LABS: Creatinine Urine 181.5 mg/dL; Total Protein Urine Random 82 mg/dL; Ur Ttl Prot Creatinine Ratio 0.45 mg/mg (0-0.20)
[2023-07-01 12:22] LABS: Vitamin D 25 Hydroxy 36.7 ng/mL
== END 2023-07-01 10:49 | disposition home or self-care (01) ==
PROVIDERS: PCP Family Medicine; Visit Provider Internal Medicine Nephrology
DX: E55.9 Vitamin D deficiency, unspecified (principal); E11.22 Type 2 diabetes mellitus with diabetic chronic kidney disease; I12.9 Hypertensive chronic kidney disease with stage 1 through stage 4 chronic kidney disease, or unspecified chronic kidney disease; N18.31 Chronic kidney disease, stage 3a
CPT/HCPCS: 36415; 80069; 82306; 82570; 84156

== ENCOUNTER 2023-11-20 11:02 | Emergency (ER) | payer MEDICARE, SELFPAY ==
[2023-11-20] VITALS (11 sets, daily range): BP systolic 132–158; BP diastolic 79–106; PULSE 64–80; RESP 11–23; TEMP 36.4; O2SAT 100
--- NOTE | ~2023-11-20 | XR_ITS ---
EXAMINATION: XR chest 2V DATE: 11/20/2023 12:14 INDICATION: Syncope TECHNIQUE: frontal and lateral views of the chest were obtained. COMPARISON: Chest radiograph and CT dated 05/28/2023 FINDINGS: The lungs are clear with no focal airspace opacities, pulmonary edema, pleural effusion or pneumothor ax. The cardiomediastinal silhouette is normal. Median sternotomy wires, ostial markers and mediastin al surgical clips consistent with prior coronary artery bypass grafting. Retained epicardial pacemake r leads. Mild thoracic spondylosis. IMPRESSION: 1. No acute cardiopulmonary disease. Reviewed, dictated and finalized at location A.
--- NOTE | 2023-11-20 11:11 | ECG_ITS ---
Test Date: 2023-11-20 11:29:28 Measurements Intervals [place] Rate: 66 P: 53 UT: 223 QRS: 4 QRSD: 108 T: 203 QT: 423 QTc: 444 Interpretive Statements SINUS RHYTHM WITH FIRST DEGREE AV BLOCK POSSIBLE LEFT ATRIAL ENLARGEMENT [-0.1mV P-WAVE IN V1/V2] PROBABLE INFERIOR MYOCARDIAL INFARCTION , OF INDETERMINATE AGE [35 ms Q WAVE IN II/aVF] MODERATE T-WAVE ABNORMALITY, CONSIDER LATERAL ISCHEMIA [-0.1+ mV T-WAVE IN I/aVL/V5/V6] No previous ECG available for comparison Electronically Signed On 11-20-2023 11:41:03 CDT by Jabari Kennedy M.D.
--- NOTE | 2023-11-20 11:39 | ED.DIZZY ---
HPI - Dizziness General Chief Complaint: Syncope Stated Complaint: syncope Time Seen by Provider: 11/20/23 11:12 History of Present Illness HPI Narrative: 67-year-old male presents emergency department for evaluation after having a near syncopal episode. Patient states he did just eat breakfast and felt flushed and needed to rest. Patient states he did not feel that he was going to pass out but reports that his made him come to be evaluated. Upon arrival emergency department patient denies any new complaints. Patient denies any chest pain or shortness of breath. Patient denies any current lightheaded dizziness. Patient states he feels at his baseline and has no complaints. Related Data Home Medications Medication Instructions Recorded Confirmed albuterol sulfate 90 mcg/actuation 2 puff inhalation Q6H PRN 02/27/20 07/05/23 aerosol inhaler Shortness Of Breath Or Wheezing amlodipine 5 mg tablet 5 mg PO DAILY 02/27/20 07/05/23 atorvastatin 80 mg tablet 80 mg PO DAILY 02/27/20 07/05/23 insulin glargine 100 unit/mL (3 30 unit subcut BID 02/27/20 07/05/23 mL) subcutaneous pen (Basaglar KwikPen U-100 Insulin) omeprazole 20 mg capsule,delayed 20 mg PO DAILY 02/27/20 07/05/23 release aspirin 81 mg chewable tablet 81 mg PO DAILY 05/31/22 07/05/23 budesonide-formoterol HFA 160 2 puff inhalation BID 05/31/22 07/05/23 mcg-4.5 mcg/actuation aerosol inhaler (Symbicort) sitagliptin phosphate 25 mg tablet 25 mg PO DAILY 05/31/22 07/05/23 (Januvia) carvedilol 12.5 mg tablet 12.5 mg PO BID 04/06/23 07/05/23 clopidogrel 75 mg tablet 75 mg PO DAILY 04/06/23 07/05/23 ezetimibe 10 mg tablet 10 mg PO DAILY 04/06/23 07/05/23 oxycodone 5 mg tablet 5 mg PO QID 04/06/23 07/05/23 tamsulosin 0.4 mg capsule 0.4 mg PO DAILY 04/06/23 07/05/23 Allergies Allergy/AdvReac Type Severity Reaction Status Date / Time adhesive tape Allergy Unknown RASH Verified 11/20/23 11:12 morphine Allergy Unknown HIVES Verified 11/20/23 11:12 Review of Systems Review of Systems: All systems reviewed & are unremarkable except as noted in HPI and below PMFSH Past Medical History Medical History Anemia CAD (coronary artery disease) CKD (chronic kidney disease) COPD (chronic obstructive pulmonary disease) Diabetes H/O colon cancer, stage I Surgical History Surgical History Hx of CABG Stented coronary artery Family History Family History Father Cerebrovascular accident Sibling Family history of diabetes mellitus in first degree relative Family history of heart disease in male family member before age 55 Social History Social History Smoking packs per day: 0.5 Smoking cigarettes per day: 10.0 Years smoked: 45 Smoking pack-years: 22.50 Smoking status: Current every day smoker Alcohol intake: former Drinks per week: 3 Alcohol use details: SOCIAL Substance use: current Substance use type: marijuana Do You Feel Safe in your Home?: Yes Lack of Transportation: No Lack of Food: Never True Current Housing: I Have Housing Concerned About Future Housing: No Difficulty Paying Gas/Electric Bills: No Difficulty Paying for Meds: No Currently Unemployed: No Education: High School Diploma/GED Difficulty w/ Childcare or Family Care: No Living arrangements: with family Gender identity (if verbalized by the patient): Male Sexual Orientation (if Verbalized by the Patient): Straight or Heterosexual Spiritual care concerns: No Exam Narrative: APPEARANCE: Well appearing, no pain, no distress, well-nourished. HEAD: normocephalic, atraumatic. EYES: PERRLA/EOMI, conjunctivae clear. NOSE: Normal no drainage EARS:TMS clear with good light reflex. THROAT: Pharynx clear,
[2023-11-20 11:56] LABS: Basophils Percent Auto 0.4 % (0.2-1.2); Eosinophils Absolute Auto 0.1 K/mm3 (0-0.3); Eosinophils Percent Auto 1.6 % (0-4.4); Hemoglobin 12.2 g/dL (14.0-18.0); Immature Granulocyte Absolute 0.02 K/mm3 (0.00-0.031); Immature Granulocyte Percent A 0.3 % (0-0.5); Lymphocytes Absolute Auto 1.84 K/mm3 (0.9-3.2); Lymphocytes Percent Auto 24.6 % (18.3-44.2); Mean Corpuscular Hemoglobin 28.8 pg (26-34); Mean Corpuscular Volume 87.5 fl (80-100); Monocytes Absolute Auto 0.4 K/mm3 (0.1-0.6); Monocytes Percent Auto 5.9 % (2.6-8.5); Neutrophils Percent Auto 67.2 % (45.5-73.1); Platelet Count Result 196 k/mm3 (150-375); Red Blood Count 4.23 M/mm3 (4.6-6.20); Red Cell Distribution Width 15.9 % (11.5-14.5); White Blood Count 7.5 K/mm3 (4.5-10.0)
[2023-11-20 12:09] LABS: Alanine Aminotransferase 15 U/L (6-50); Albumin Level 3.9 g/dL (3.5-5.1); Alkaline Phosphatase 73 U/L (38-126); Anion Gap 8 mmol/L (4-12); Aspartate Amino Transferase 19 U/L (17-59); Bilirubin,Total 0.4 mg/dL (0.2-1.3); Blood Urea Nitrogen 27 mg/dL (9-20); Calcium 8.8 mg/dL (8.4-10.2); Carbon Dioxide 23 mmol/L (22-30); Chloride 112 mmol/L (98-107); Estimated CRCL calculation 27 ml/min; Estimated Glomerular Filt Rate 28; Glucose 170 mg/dL (65-110); Potassium 3.8 mmol/L (3.4-5.0); Sodium 143 mmol/L (137-145)
[2023-11-20] MEDS: SODIUM CHLORIDE 0.9% IV 500 ML 999 ML IV CONT (12:29)
== END 2023-11-20 14:40 | disposition home or self-care (01) ==
PROVIDERS: Emergency Provider Emergency Medicine; PCP Family Medicine
DX: R55 Syncope and collapse (principal); I25.10 Atherosclerotic heart disease of native coronary artery without angina pectoris; N18.9 Chronic kidney disease, unspecified; J44.9 Chronic obstructive pulmonary disease, unspecified; E11.22 Type 2 diabetes mellitus with diabetic chronic kidney disease; D64.9 Anemia, unspecified; Z85.038 Personal history of other malignant neoplasm of large intestine; Z95.1 Presence of aortocoronary bypass graft; Z95.5 Presence of coronary angioplasty implant and graft; Z79.51 Long term (current) use of inhaled steroids; Z79.4 Long term (current) use of insulin; Z79.82 Long term (current) use of aspirin; Z79.84 Long term (current) use of oral hypoglycemic drugs; Z79.02 Long term (current) use of antithrombotics/antiplatelets; Z79.891 Long term (current) use of opiate analgesic; F17.210 Nicotine dependence, cigarettes, uncomplicated
CPT/HCPCS: 36415; 71046; 80053; 85025; 93005; 96360; 99284; J7040

== ENCOUNTER 2024-01-05 13:58 | Outpatient (CLI) | payer MEDICARE, SELFPAY ==
[2024-01-05 14:39] LABS: Anion Gap 5 mmol/L (4-12); Blood Urea Nitrogen 25 mg/dL (9-20); Calcium 9.1 mg/dL (8.4-10.2); Carbon Dioxide 25 mmol/L (22-30); Chloride 113 mmol/L (98-107); Estimated Glomerular Filt Rate 43; Glucose 85 mg/dL (65-110); Phosphorus 3.6 mg/dL (2.5-4.5); Potassium 3.9 mmol/L (3.4-5.0); Sodium 143 mmol/L (137-145)
[2024-01-05 16:05] LABS: Creatinine Urine 204.3 mg/dL; Total Protein Urine Random 59 mg/dL; Ur Ttl Prot Creatinine Ratio 0.29 mg/mg (0-0.20)
[2024-01-05 16:22] LABS: Parathyroid Intact 116.2 pg/mL (14.5-75.2)
[2024-01-05 16:39] LABS: Vitamin D 25 Hydroxy 23.6 ng/mL
== END 2024-01-05 13:59 | disposition home or self-care (01) ==
PROVIDERS: PCP Family Medicine; Visit Provider Internal Medicine Nephrology
DX: E11.22 Type 2 diabetes mellitus with diabetic chronic kidney disease (principal); I12.9 Hypertensive chronic kidney disease with stage 1 through stage 4 chronic kidney disease, or unspecified chronic kidney disease; N18.32 Chronic kidney disease, stage 3b; E55.9 Vitamin D deficiency, unspecified; N25.81 Secondary hyperparathyroidism of renal origin
CPT/HCPCS: 36415; 80069; 82306; 82570; 83970; 84156

== ENCOUNTER 2024-05-22 16:17 | Outpatient (CLI) | payer MEDICARE, SELFPAY ==
--- OUTSIDE RECORDS SUMMARY | 2024-05-22 17:04 | XMS_ITS | Encounter Summary ---
Author Organization [facility] Address [address] [place] [address] Care Team Providers Care Chef Assistant Name Role Phone Hal Dailey MD Primary Care Provider [phone] Reason for Visit * Reason Onset Date Comments SYNCOPE 11/11/2019 LADAN @ [facility] ALMAZAN 'S EXCHANGE Encounter Details Date Type Department Care Team (Late st Contact Info) Description 11/11/2019 [facility]phone [facility] Admitting [address] [place] [address] [place] [address] [facility] [address] [place] [address] SYNCOPE (LADAN @ DR ALMAZAN'S EXCHANGE) Social History Tobacco Use Types Packs/Day Years Used Date Smoking Tobacco: Light Smoker Cigarettes Smokeless Tobacco: Never Comments:1 pack per week Alcohol Use Standard Drinks/Week Comments Yes 3 (1 standard drink = 0.6 oz pur e alcohol) Feeling Safe Answer Date Recorded Within the last year, have y ou been afraid of your partner or ex-partner? No 11/10/2019 Within the last year, have y ou been humiliated or emotionally abused in other ways by your partner or ex-partner? No Within the last year, have y ou been kicked, hit, slapped, or otherwise physically hurt by your partner or ex-partner? No 11/10/2019 Within the last year, have y ou been raped or forced to have any kind of sexual activity by your partner or ex-partner? No 11/10/2019 Social Connections Answer Date Recorded In a typical week, how many times do you talk on the phone with family, friends, or neighbors? More than three times a week 11/10/2019 How often do you get togethe r with friends or relatives? More than three times a week 11/10/2019 How often do you attend chur or rastafarian services? 1 to 4 times per year 11/10/2019 Do you belong to any clubs o r organizations such as sabianist groups, unions, fraternal or athletic groups, or school groups? No 11/10/2019 How often do you attend meet ings of the clubs or organizations you belong to? Never 11/10/2019 Are you , , di vorced, , never , or living with a partner? 11/10/2019 Financial Resource Strain Answer Date R ecorded How hard is it for you to pa y for the very basics like food, housing, medical care, and heating? Hard 11/10/2019 Food Insecurity Answer Date Recorded Within the past 12 months, y ou worried that your food would run out before you got the money to buy more. Sometimes true Within the past 12 months, t he food you bought just didn't last and you didn't have money to get more. Never true Transportation Needs Answer Date Record ed In the past 12 months, has l ack of transportation kept you from medical appointments or from getting medications? No 10/16 In the past 12 months, has l ack of transportation kept you from meetings, work, or from getting things needed for daily living? No 11/10/2019 Sex and Gender Information Value Date Recorded Sex Assigned at Not on file Legal Sex Male 4:36 PM CDT Gender Identity Not on file Sexual Orientation Not on file Occupation Industry Job Start Date Job End Date Retired Not on file Not on file Not on file COVID-19 Exposure Response Date Recorded In the last month, have you been in contact with someone who was confirmed or suspected to have Coronavirus / COVID-19? No / Unsure 11/10/2019 6:15 PM CDT documented as of this encounter Plan of Treatment Not on file documented as of this encounter Visit Diagnoses Not on filedocumented in this encounter Care Teams Chef Assistant Relationship Specialty Start Date End Date Hal Dailey MD [address] [place] [address] PCP - General Family Practice 11/10/19 documented as of this encounter
--- OUTSIDE RECORDS SUMMARY | 2024-05-22 17:04 | XMS_ITS | Clinical Summary ---
Author Organization [facility] Address [address] [place] [address] Phone Care Team Providers Care Windows Mobile Developer Name Role Phone Hal Dailey MD Primary Care Provider [phone] Allergies Active Allergy Reactions Criticality Noted Date Comments Morphine Hives High 10/29/2008 Morphine And Codeine Hives 01/13/2022 Medications Medication Sig Dispensed Refills Start Date End Date Status ferrous sulfate 325 (65 Fe) MG tablet 1 tab/cap bid 04/27/2015 Active allopurinol (ZYLOPRIM) 100 MG tablet Take 100 mg by mouth 1 (one) time each day 11/25/2021 Active amLODIPine (NORVASC) 5 MG tablet TAKE 1 TABLET BY MOUTH ONCE DAILY IN THE MORNING 12/29/2021 Active aspirin (ST MEENAKSHI) 81 MG EC tablet Take 81 mg by mouth in the morning. 11/09/2017 Active atorvastatin (LIPITOR) 80 MG tablet Take 80 mg by mouth 1 (one) time each day 10/14/2021 Active cloNIDine (CATAPRES) 0.1 MG tablet Take 0.1 mg by mouth in the morning and 0.1 mg before bedtime. 12/29/2021 Active Empagliflozin (Jardiance) 25 MG tablet Take by mouth 1 (one) time each day at the same time 02/13/1969 Active gabapentin (NEURONTIN) 300 MG capsule Take by mouth every 8 hours 02/13/1969 Active OneTouch Ultra test strip USE 1 STRIP TO CHECK GLUCOSE THREE TIMES DAILY 12/30/2021 Active HYDROcodone-acetam inophen (NORCO) 5-325 MG per tablet Take 1 tablet by mouth in the morning and 1 tablet before bedtime. 11/25/2021 Activ e Basaglar KwikPen 100 UNIT/ML injection INJECT 40 UNITS SUBCUTANEOUSLY TWICE DAILY 10/14/2021 Active BD Pen Needle Sierra 2nd Gen 32G X 4 MM misc USE WITH BASAGLAR TWICE DAILY 10/07/2021 Active latanoprost (XALATAN) 0.005 % ophthalmic solution INSTILL 1 DROP IN BOTH EYES EVERY NIGHT AT BEDTIME 10/21/2021 Active naproxen (NAPROSYN) 500 MG tablet Take 500 mg by mouth in the morning and 500 mg before bedtime. 10/14/2021 Active omeprazole (PriLOSEC) [address] capsule Take 20 mg by mouth 1 (one) time each day 12/29/2021 Active sildenafil (VIAGRA) 100 MG tablet TAKE 1/2 TABLET BY MOUTH 1 HOUR BEFORE SEXUAL ACTIVITY NEEDED 12/19/2021 Active traMADol (ULTRAM) 50 MG tablet Take 50 mg by mouth in the morning and 50 mg at noon and 50 mg in the evening. 10/16/2021 Active Active Problems Problem Noted Date Diagnosed Date Abnormal result of other cardiovascular function study 01/13/2022 Atherosclerosis of [place] ar teries of extremities with intermittent claudication 01/13/2022 Bradycardia 01/13/2022 Chest pain 01/13/2022 Family history of stroke 01/13/2022 FH: Hypertension 01/13/2022 FH: Raised blood lipids 01/13/2022 Family history of other specified condition 12/17 Tobacco dependence syndrome 01/13/2022 Syncope and collapse 01/13/2022 Peripheral circulatory disor patti associated with type 2 diabetes mellitus 01/13/2022 Acute injury of kidney 11/11/2019 Acute renal failure syndrome 11/10/2019 Hypertension in chronic kidn ey disease stage 3 due to type 2 diabetes mellitus 11/10/2019 Insulin treated type 2 diabetes mellitus 020 Marijuana user 11/10/2019 Vasovagal syncope 11/10/2019 Malignant neoplasm of colon 11/09/2017 Hyperlipidemia 10/25/2016 Type 2 diabetes mellitus with diabetic nephropat hy 10/25/2016 Chronic kidney disease, stage 3 (moderate) 04/26 Hypertensive chronic kidney disease with stage 1 through stage 4 chronic kidney disease, or unspecified chronic kidney disease 04/27/2015 Type 2 diabetes mellitus wit h diabetic chronic kidney disease 04/27/2015 Other hyperlipidemia 04/27/2015 Overview (04/29/2018): Converted unresolved ICD9, potential mismatch. Atherosclerotic heart diseas e of [place] coronary artery without angina pectoris 04/27/2015 Gout 04/27/2015 Male erectile disorder 10/29/2008 Essential (primary) hypertension 02/13/1959 Atherosclerotic heart diseas e of [place] coronary artery without angina pectoris 02/13/1959 Immunizations Name Administration Dates Next Due Influenza TIV (IM) 12/10/2015(Deferred: Patient Refused) Influenza, Injectable, Quadr ivalent, Preservative Free 11/11/2019 Family History Medical History Relation Comments Cerebrovascular accident Father Diabetes mellitus Father Heart disease Father Kidney disease Mother Hypertensive disorder Sibling 1 Diabetes mellitus Sibling 2 Kidney disease Neg Hx Kidney stone Neg Hx Relation Status Comments Father Mother Sibling 1 Sibling 2 Social History Tobacco Use Types Packs/Day Years Used Date Smoking Tobacco: Some Days Cigarettes Smokeless Tobacco: Never Tobacco Cessation:Ready to Q uit: No; Counseling Given: Yes Alcohol Use Standard Drinks/Week Comments Yes 3 (1 standard drink = 0.6 oz pur e alcohol) Sex and Gender Information Value Date Recorded Sex Assigned at Not on file Gender Identity Not on file Sexual Orientation Not on file Last Filed Vital Signs Vital Sign Reading Time Taken Comments Blood Pressure 134/72 01/13/2022 10:49 AM HOSPITALITY RECRUITER Pulse - - Temperature 36.7 C (98.1 F) 01/13/2022 10:49 AM HOSPITALITY RECRUITER Respiratory Rate 18 01/13/2022 10:49 AM HOSPITALITY RECRUITER Oxygen Saturation - - Inhaled Oxygen Concentration - - Weight 93 kg (205 lb) 01/13/2022 10:49 AM HOSPITALITY RECRUITER Height 185.4 cm (6' 1 ) 01/13/2022 10:49 AM HOSPITALITY RECRUITER Body Mass Index 27.05 01/13/2022 10:49 AM HOSPITALITY RECRUITER Plan of Treatment Health Maintenance Due Date Last Done Comments Pneumococcal PPSV23/PCV13 65 + Years / High and Highest Risk (1 of 4 - PCV) 12/23/1961 Pneumococcal PPSV23/PCV13 65 + Years / Low and Medium Risk (1 of 4 - PCV) 12/23/2020 Influenza Vaccine (Season Ended) 2024 11/11/19 20 Care Teams Windows Mobile Developer Relationship Specialty Start Date End Date Hal Dailey MD [address] [place] [address] PCP - General Internal Medicine 11/26/21
--- OUTSIDE RECORDS SUMMARY | 2024-05-22 17:04 | XMS_ITS | Clinical Summary ---
Author Organization [facility] Address [address] [facility] [address] [place] [address] Phone Care Team Providers Care Relations Mgr Name Role Phone Hal Dailey MD Primary Care Provider Medications polyethylene glycol (MIRALAX) Powder Use entire bottle of 255 grams of miralax for Colon prep as directed by office. 255 g 05/03/2017 Active Social History Tobacco Use Types Packs/Day Years Used Date Smoking Tobacco: Never Assessed Sex and Gender Information Value Date Recorded Sex Assigned at Not on file Legal Sex Male 4:45 PM INSOLE AND OUTSOLE SPLITTER Gender Identity Not on file Sexual Orientation Not on file Plan of Treatment Health Maintenance Due Date Last Done Comments Hepatitis C Virus (HCV) Screening 1955 TdaP Immunization 1955 Cologuard 12/23/2005 Immunochemical Fecal Occult Blood 12/23/2005 Pneumococcal Immunization (5 0+ years) (1 of 1 - PCV) 12/23/2005 Zoster Immunization (1 of 2) 12/23/2005 PSA Discussion 12/23/2010 Colonoscopy 03/13/2023 03/13/2020, 01/19/2018, 07/07/2017 Colorectal Cancer Screening 03/13/2023 Influenza Immunization (#1) 10/16/202303/2016, 11/15/2014 SARS-COV-2 Immunization ( - 2023- season) 2023 Respiratory Syncytial Virus (RSV) Immunization (Adult) (1 - 1-dose 75+ series) 12/23/2030 03/13/2020, 01/19/2018, 07/07/2017 Hepatitis B Immunization Aged Out No longer eligible based on patient's age to complete this topic Meningococcal Immunization (ACWY) Aged Out No longer eligible b ased on patient's age to complete this topic Rotavirus Immunization Aged Out No lo nger eligible based on patient's age to complete this topic Procedures Procedure Name Priority Date/Time Associated Diagnosis Comments COLONOSCOPY Routine 03/13/2020 from Last 3 Months or Most Recently Relevant to Health Maintenance Results * COLONOSCOPY (03/13/2020) us Carrington Rios DO PROCEDURE/MINOR SURGICAL ORDERA BLES Final Result from Last 3 Months or Most Recently Relevant to Health Maintenance [facility] Care Teams Relations Mgr Relationship Specialty Start Date End Date Hal Dailey MD [address] [place] [address] PCP - General Family Medicine 04/21/17
--- OUTSIDE RECORDS SUMMARY | 2024-05-22 17:04 | XMS_ITS | Clinical Summary ---
Author Organization [facility] Address [address] [place] [address] Phone Care Team Providers Care Flame Hardening Machine Setter Name Role Phone Hal Dailey MD Primary Care Provider Allergies Active Allergy Reactions Criticality Noted Date Comments Adhesive Hives High 11/10/2019 Morphine Hives High 11/10/2019 Medications aspirin (ECOTRIN EC) 81 mg Tablet, Delayed Release (E.C.) Take 81 mg by mouth daily. Active atorvastatin (LIPITOR) 80 mg tablet Take 80 mg by mouth daily with supper. Active omeprazole (PriLOSEC) 20 mg Capsule, Delayed Release(E.C.) Take 20 mg by mouth daily. Active carvediloL (COREG) 25 mg tablet Take 25 mg by mouth 2 times daily with meals. Active cloNIDine HCL (CATAPRES) 0.1 mg tablet Take 1 Tablet (0.1 mg) by mouth 2 times daily. 0 Active insulin glargine (Basaglar KwikPen U-100 Insulin) 100 unit/mL pen syringe Inject 20 Units by subcutaneous injection daily with breakfast. 90 mL 0 Active Active Problems Problem Noted Date Diagnosed Date JOHN (acute kidney injury) 11/11/2019 Vasovagal syncope 11/10/2019 Acute kidney injury superimposed on CKD 11/10/19 20 Type 2 diabetes mellitus, wi th long-term current use of insulin 11/10/2019 Hypertension associated with stage 3 chronic kidney disease due to type 2 diabetes mellitus 11/10/2019 Marijuana use 11/10/2019 Syncope and collapse Symptomatic bradycardia Immunizations Immunization Administration Dates Next Due INFLUENZA VACCINE QUADRIVALENT 6 MOS UP PF IM Family History Medical History Relation Name Comments Diabetes Father Heart Disease Father Kidney Disease Mother Relation Name Status Comments Father Alive Mother Social History Tobacco Use Types Packs/Day Years [...] 11/10/2019 How often do you attend chur ch or confucianist services? 1 to 4 times per year 11/10/2019 Do you belong to any clubs o r organizations such as synagogue groups, unions, fraternal or athletic groups, or [...] file Not on file Not on file Last Filed Vital Signs Vital Sign Reading Time Taken Comments Blood Pressure 165/96 11/12/2019 8:37 AM CDT Pulse 80 11/12/2019 7:38 AM CDT Temperature 36.9 C (98.5 F) 11/12/2019 7:38 AM CDT Respiratory Rate 20 11/12/2019 7:38 AM CDT Oxygen Saturation 98% 11/12/2019 7:38 AM CDT Inhaled Oxygen Concentration - - Weight 98.7 kg (217 lb 9.6 oz) 11/12/2019 4:31 A M CDT Height 185.4 cm (6' 1 ) 11/10/2019 8:23 PM CDT Body Mass Index 28.71 11/10/2019 8:23 PM CDT Plan of Treatment Health Maintenance Due Date Last Done Comments DIABETES ANNUAL FOOT EXAM 12/23/1973 DIABETES ANNUAL RETINAL EXAM 12/23/1973 DIABETES MICROALBUMIN ANNUAL SCREEN 12/23/1973 LDL CHOLESTEROL ANNUAL 12/23/1973 DTAP/TDAP/TD VACCINES (1 - Tdap) 12/23/1974 PNEUMOCOCCAL VACCINE 50+ YEARS (1 of 2 - PCV) 12/23/18 75 COLORECTAL SCREENING 12/23/2000 Colorectal Cancer Screening 12/23/2000 FIT-DNA Q 3 years 12/23/2000 FIT/FOBT Q 1 year 12/23/2000 Flex Sig/CT Colonography Q 5 years 12/23/2000 ZOSTER VACCINE (1 of 2) 12/23/2005 RSV VACCINE (60+ or ) (1 - Risk 60-74 years 1-dose series) 2015 DIABETES HBA1C Q 6 MONTHS 05/09/2020 11/10/2019 INFLUENZA VACCINE (#1) 2023 11/11/2019 Procedures Procedure Name Priority Date/Time Associated Diagnosis Comments HEMOGLOBIN A1C Stat 11/10/2019 4:59 PM CDT from Last 3 Months or Most Recently Relevant to Health Maintenance Results * (ABNORMAL) HEMOGLOBIN A1C (11/10/2019 4:59 PM CDT) HEMOGLOBIN A1C 8.7(H) <=5.6 % 11/10/2019 8:23 PM CDT [facility] [employer] [facility] EST. AVG GLUCOSE, A1C 203 mg/dL 11/10/2019 8:23 PM CDT [facility] Blood Venipuncture / Unknown 11/10/2019 4:59 PM CDT 11/10/2019 5:05 PM CDT Narrative [facility] - 11/10/2019 8:23 PM CDT HGB A1C INTERPRETATION NORMAL: <5.7% PRE-DIABETES: 5.7 - 6.4% DIABETES: 6.5% OR GREATER Danette Hernandez MICA MACHINE OPERATOR CHEMISTRY ORDERABLES Fin al Result [facility] [employer] [facility] CLIA# [id number] [place] [address] from Last 3 Months or Most Recently Relevant to Health Maintenance Insurance [facility] Advance Directives For more information, please contact: [phone] * Full Code (Latest Code Status on File) Date Activated Date Inactivated Comments 11/10/2019 9:50 PM 11/12/2019 3:28 PM Care Teams Flame Hardening Machine Setter Relationship Specialty Start Date End Date Hal Dailey MD [address] [place] [address] PCP - General Family Practice 11/10/19
--- OUTSIDE RECORDS SUMMARY | 2024-05-22 17:04 | XMS_ITS | CONTINUITY OF CARE DOCUMENT ---
Author Name too gage Address Unknown Organization [facility] Address [address] [place] [address] Phone [phone] Care Team Providers Care Staff Development Coordinator Rn Name Role Phone Hernan DOW, Elijah Unavailable AYANNA DOW, MIGUE Unavailable [phone] MIGUE URENA MD Unavailable PROBLEMS Condition Status Date Provider Notes CAD-04/21 s/p stents prox, di st RCA, PL, LCX active Inderjit Omer DIABETES MELLITUS completed - Elijah Becerra MD Hyperlipidemia active Inderjit Omer HTN essential active Inderjit Omer PVD - LAST ROBERT NORMAL-09/21 completed - Inderjit Gasca yte CAD-10/22STENT 2 VISION RPL,LCIRC, TAXUS PROX L CIRC active ? Elijah Becerra MD TOBACCO ABUSE active ? Elijah Becerra MD ERECTILE DYSFUNCTION active Elijah Becerra MD CAD-11/22 CAROTID NEG completed - Inderjit Omer ABNLL STRESS MYOVIEW-11/22 I NF WALL ISCHEMIA,-PATENT STENTS completed - Elijah Becerra MD DIABETES MELLITUS, TYPE II, CONTROLLED W/ VASCULAR COMPLICATIONS active ? Elijah Becerra MD CHEST PAIN-08/25 CARDIOPULM- MILD-MOD DECOND completed - Elijah Becerra MD GOUT active Elijah Becerra MD Family History of CVA or Stroke: completed - Elijah Becerra MD Family History of Sudden Cardiac : completed - Elijah Becerra MD Family History of CVA or Stroke: completed - Elijah Becerra MD Family History of Hyperlipidemia: completed - Elijah Becerra MD Family History of Hypertension: completed - Dillon Becerra MD Colon cancer - s/p colectomy , in remission (since 2015) active Inderjit Omer ENCOUNTERS Date Type Provider Location Encounter Diag nosis - In-person encounter Office Visit Elijah Becerra MD [facility] CAD-04/21 s/p stents prox, dist RCA, PL, LCXHyperlipidemiaHTN essentialPVD - LAST ROBERT NORMAL-09/21CAD-11/22 CAROTID NEGABNLL STRESS MYOVIEW-11/22 INF WALL ISCHEMIA,-PATENT STENTSFamily History of CVA or Stroke:Family History of Sudden Cardiac :Family History of CVA or Stroke:Family History of Hyperlipidemia:Family History of Hypertension:Colon cancer - s/p colectomy, in remission (since 2015) - In-person encounter Office Visit Elijah Becerra MD [facility] Colon cancer - s/p colectomy, in remission (since 2015) - In-person encounter Office Visit Elijah Becerra MD [facility] - In-person encounter Office Visit Elijah Becerra MD [facility] - In-person encounter Office Visit Elijah Becerra MD [facility] DIABETES MELLITUSHyperlipidemiaCHEST PAIN-08/25 CARDIOPULM- MILD-MOD DECOND - In-person encounter Office Visit Elijah Becerra MD [facility] - In-person encounter Office Visit Elijah Becerra MD [facility] - In-person encounter Office Visit Elijah Becerra MD [facility] GOUT - In-person encounter Office Visit Elijah Becerra MD [facility] - In-person encounter Office Visit Elijah Becerra MD [facility] - In-person encounter Office Visit Elijah Becerra MD [facility] - In-person encounter Office Visit Elijah Becerra MD [facility] CHEST PAIN-08/25 CARDIOPULM- MILD-MOD DECOND - In-person encounter Office Visit Elijah Becerra MD [facility] - In-person encounter Office Visit Elijah Becerra MD [facility] - In-person encounter Office Visit Elijah Becerra MD [facility] DIABETES MELLITUS, TYPE II, CONTROLLED W/ VASCULAR COMPLICATIONS - In-person encounter Office Visit Elijah Becerra MD [facility] HyperlipidemiaTOBACCO ABUSEERECTILE DYSFUNCTION - In-person encounter Office Visit Elijah Becerra MD [facility] PVD - LAST ROBERT NORMAL-09/21 - In-person encounter Office Visit Elijah Becerra MD [facility] HTN essentialCAD-10/22STENT 2 VISION RPL,LCIRC, TAXUS PROX L CIRC - In-person encounter Office Visit Elijah Becerra MD [facility] CAD-3/08 s/p stents prox, dist RCA, PL, LCXPVD - LAST ROBERT NORMAL-09/21 - In-person encounter Office Visit Elijah Becerra MD [facility] CAD-/08 s/p stents prox, dist RCA, PL, LCXHyperlipidemiaHTN essential VITAL SIGNS Date Observation Value Provider Body Mass Index (Ratio) 31.03 kg/m2 Balbir Omer blood pressure, diastolic 90 mm[Hg] Ibrahima Rodriguez blood pressure, systolic 144 mm[Hg] Marga Rodriguez oxygen saturation, oximetry 97 % Fiona Rodriguez respiratory rate E&M 16 /min Abigail Rodriguez pulse rate 77 /min Fiona chacon weight E&M 235.2 [lb_av] Fiona morganon height E&M 73 [in_i] Fiona Carvalho on Body Mass Index (Ratio) 28.76 kg/m2 Alfredo Becerra MD blood pressure, diastolic 80 mm[Hg] Ki [facility] blood pressure, systolic 150 mm[Hg] Lane marinelli Louisa oxygen saturation, oximetry 99 % [facility] respiratory rate E&M 16 /min [facility] pulse rate 73 /min [facility] E&M 218 [lb_av] [facility] height E&M 73 [in_i] [facility] Body Mass Index (Ratio) 27.84 kg/m2 Davila i Raad blood pressure, diastolic 80 mm[Hg] Ke rri Britter blood pressure, systolic 128 mm[Hg] Anamika ri Raad pulse rate 78 /min Sharon Juareze er oxygen saturation, oximetry 98 % Sharon Britter respiratory rate E&M 16 /min Sharon morley weight E&M 211 [lb_av] Sharon Carlosuenenfe lder Body Mass Index (Ratio) 28.47 kg/m2 Davila i Christinanflawrenceer blood pressure, diastolic 70 mm[Hg] Ke rri Gruenenfelder blood pressure, systolic 118 mm[Hg] Anamika knowles Raad pulse rate 74 /min Sharon Neilrangeljoann cesarer oxygen saturation, oximetry 97 % Sharon Raad respiratory rate E&M 15 /min Sharon Richardson milli weight E&M 215 [lb_av] Sharon Neilrangeljoann cesarer Body Mass Index (Ratio) 28.87 kg/m2 Guilherme Grace blood pressure, diastolic, left arm 80 mm [Hg] [facility] blood pressure, systolic, left arm 124 mm [Hg] David Grace blood pressure, diastolic, right arm 80 m m[Hg] David Grace blood pressure, systolic, right arm 140 m m[Hg] David Grace blood pressure, diastolic 80 mm[Hg] Calderon blood pressure, systolic 124 mm[Hg] Wesly michel Grace pulse rate 68 /min [facility] oxygen saturation, oximetry 98 % David Grace respiratory rate E&M 16 /min [facility] weight E&M 218 [lb_av] David Grace blood pressure, diastolic, left arm 73 mm [Hg] Rancho Medina RN blood pressure, systolic, left arm 113 mm [Hg] Rancho Medina RN blood pressure, diastolic, right arm 82 m m[Hg] Rancho Medina RN blood pressure, systolic, right arm 120 m m[Hg] Rancho Medina RN blood pressure, diastolic 73 mm[Hg] Jose A Medina RN blood pressure, systolic 113 mm[Hg] Rancho Medina RN pulse rate 80 /min Rancho Medina RN oxygen saturation, oximetry 98 % Rancho Medina RN respiratory rate E&M 16 /min Rancho tseiner RN Body Mass Index (Ratio) 28.60 kg/m2 Rancho Medina RN weight E&M 216 [lb_av] Rancho eMdina RN Body Mass Index (Ratio) 28.87 kg/m2 Guilherme Grace blood pressure, diastolic, left arm 80 mm [Hg] David Grace blood pressure, systolic, left arm 140 mm [Hg] David Grace blood pressure, diastolic, right arm 86 m m[Hg] David Grace blood pressure, systolic, right arm 142 m m[Hg] David Grace blood pressure, diastolic 80 mm[Hg] Calderon blood pressure, systolic 140 mm[Hg] Wesly Grace pulse rate 77 /min David Grace oxygen saturation, oximetry 98 % David Grace respiratory rate E&M 16 /min David Grace weight E&M 218 [lb_av] David Grace height E&M 73 [in_i] David Grace blood pressure, diastolic 95 mm[Hg] Benjamin Shankar blood pressure, systolic 159 mm[Hg] Anamika Shankar pulse rate 74 /min Sharon guerreroer oxygen saturation, oximetry 97 % Sharon Shankar respiratory rate E&M 16 /min Sharon morley weight E&M 216 [lb_av] Sharon guerreroer blood pressure, diastolic 88 mm[Hg] Calderon blood pressure, systolic 160 mm[Hg] Wesly Grace pulse rate 82 /min David Grace oxygen saturation, oximetry 97 % David Grace respiratory rate E&M 14 /min David Grace weight E&M 222 [lb_av] David Sanjay blood pressure, diastolic 87 mm[Hg] Jose A Medina RN blood pressure, systolic 134 mm[Hg] Rancho Vickress RN pulse rate 68 /min Rancho Vickerss RN oxygen saturation, oximetry 98 % Rancho Vickerss RN respiratory rate E&M 18 /min Rancho steiner RN weight E&M 222 [lb_av] Rancho Vickerss RN blood pressure, diastolic 80 mm[Hg] He ather Blunt blood pressure, systolic 118 mm[Hg] Hea ther Blunt pulse rate 72 /min Kavitha Blunt oxygen saturation, oximetry 99 % Kavitha Blunt respiratory rate E&M 18 /min Kavitha Blunt weight E&M 221 [lb_av] Kavitha Blunt blood pressure, diastolic, left arm 70 mm [Hg] Indra Man[place] blood pressure, systolic, left arm 139 mm [Hg] Indra [place] blood pressure, diastolic, right arm 91 m m[Hg] Indra [place] blood pressure, systolic, right arm 135 m m[Hg] Indra [place] blood pressure, diastolic 91 mm[Hg] Rashmi seph [place] blood pressure, systolic 135 mm[Hg] Gerry eph [place] pulse rate 75 /min Indra [place] oxygen saturation, oximetry 98 % Indra [place] respiratory rate E&M 16 /min Indra [place] weight E&M 219 [lb_av] Indra [place] blood pressure, diastolic, left arm 78 mm [Hg] Indra [place] blood pressure, systolic, left arm 126 mm [Hg] Indra [place] blood pressure, diastolic 78 mm[Hg] Rashmi seph [place] blood pressure, systolic 126 mm[Hg] Gerry eph [place] pulse rate 81 /min Indra [place] oxygen saturation, oximetry 97 % [facility] E&M 16 /min [facility] E&M 222 [lb_av] [facility] blood pressure, diastolic, left arm 88 mm [Hg] [facility] blood pressure, systolic, left arm 130 mm [Hg] [facility] blood pressure, diastolic, right arm 82 m m[Hg] [facility] blood pressure, systolic, right arm 135 m m[Hg] [facility] blood pressure, diastolic 82 mm[Hg] Rashmi [facility] blood pressure, systolic 135 mm[Hg] Gerry [facility] pulse rate 77 /min [facility] oxygen saturation, oximetry 99 % [facility] respiratory rate E&M 16 /min [facility] weight E&M 232 [lb_av] [facility] height E&M 72 [in_i] [facility] blood pressure, diastolic 76 mm[Hg] Jose A Medina RN blood pressure, systolic 119 mm[Hg] Rancho Medina RN oxygen saturation, oximetry 98 % Rancho Medina RN respiratory rate E&M 18 /min Rancho steiner RN weight E&M 228 [lb_av] Rancho Medina RN blood pressure, diastolic, left arm 90 mm [Hg] Khushboo Romero MA blood pressure, systolic, left arm 138 mm [Hg] Khushboo Romero MA blood pressure, diastolic, right arm 80 m m[Hg] Khushboo Romero MA blood pressure, systolic, right arm 120 m m[Hg] Khushboo Romero MA blood pressure, diastolic 90 mm[Hg] Akanksha Romero MA blood pressure, systolic 138 mm[Hg] Giuliana Romero MA pulse rate 84 /min Khushboo Romero MA oxygen saturation, oximetry 96 % Khushboowiliam Romero MA respiratory rate E&M 16 /min Khushboo Romero MA weight E&M 233 [lb_av] Khushboo Nick VASQUEZ blood pressure, diastolic 72 mm[Hg] Rashmi guilherme [place] blood pressure, systolic 134 mm[Hg] Gerry cevallos [place] pulse rate 84 /min Indra [place] oxygen saturation, oximetry 98 % [facility] E&M 16 /min Indra [place] weight E&M 232 [lb_av] Indra Swan blood pressure, diastolic 64 mm[Hg] Palomo Mcgee blood pressure, systolic 106 mm[Hg] Nelson pulse rate 74 /min Karen Mcgee oxygen saturation, oximetry 96 % Karen Mcgee respiratory rate E&M 18 /min Karen gutiérrez weight E&M 247 [lb_av] Karen Mcgee blood pressure, diastolic, left arm 114 m m[Hg] Elijah Becerra MD blood pressure, systolic, left arm 180 mm [Hg] Elijah Becerra MD blood pressure, diastolic 100 mm[Hg] Palomo Mcgee blood pressure, systolic 160 mm[Hg] Nelson pulse rate 70 /min Karen Mcgee oxygen saturation, oximetry 98 % Karen Mcgee respiratory rate E&M 20 /min Karen gutiérrez weight E&M 221 [lb_av] Karen Mcgee blood pressure, diastolic, left arm 96 mm [Hg] Mina Panchal blood pressure, systolic, left arm 168 mm [Hg] Mina Panchal blood pressure, diastolic, right arm 105 mm[Hg] Mina Panchal blood pressure, systolic, right arm 174 m m[Hg] Mina Panchal pulse rate 65 /min Mina Panchal oxygen saturation, oximetry 100 % Mina Panchal respiratory rate E&M 18 /min Mina navarro weight E&M 231 [lb_av] Mina Panchal ALLERGIES Allergy Name Onset Date Reaction Criticality Status MORPHINE Low Criticality active RESULTS Date Observation Value Provider Reference Range Interpretation Location cholesterol/HDL ratio, serum, percent 3.9 (calc) [facility] < OR = 5.0 Normal LDL cholesterol, serum 113 MG/DL (CALC) [facility] <130 Normal triglyceride, serum, fasting 181 mg/dL [facility] <150 High HDL cholesterol, serum 52 mg/dL [facility] > OR = 40 Normal cholesterol, serum 201 mg/dL [facility] 125-200 High hemoglobin A1C, blood, as % of total hemoglobin 7.8 % OF TOTAL HGB [facility] <5.7 High cholesterol/HDL ratio, serum, percent 4.7 (calc) [facility] < OR = 5.0 Normal LDL cholesterol, serum 120 MG/DL (CALC) [facility] <130 Normal triglyceride, serum, fasting 215 mg/dL [facility] <150 High HDL cholesterol, serum 44 mg/dL [facility] > OR = 40 Normal cholesterol, serum 207 mg/dL [facility] 125-200 High prothrombin time (patient) 10.6 s Edith Vázquez international normalized ratio (INR) 1.0 Edith Vázquez platelet count 244 10*3/uL Edith Vázquez red blood cell distribution width 14.0 % Edith Vázquez mean corpuscular hemoglobin concentration, RBC 33.7 g/dL Edith Vázquez mean corpuscular hemoglobin, RBC 28.6 pg Edith Vázquez mean corpuscular volume, RBC 85.0 fL Edith Vázquez hematocrit, blood 36.8 % Edith Vázquez hemoglobin, blood 12.4 g/dL [facility] erythrocyte (RBC) count 4.33 10*6/mm3 [facility] monocytes as percent of blood leukocytes 5.9 % [facility] lymphocytes as percent of blood leukocytes 29.1 % [facility] leukocyte count, blood 7.1 10*3/mm3 [facility] hemoglobin A1C, blood, as % of total hemoglobin 7.7 % [facility] protein, total, serum 7.5 g/dL [facility] albumin, serum 4.2 g/dL [facility] bilirubin, serum, total 0.5 mg/dL [facility] alkaline phosphatase, serum 52 1/L [facility] alanine aminotransferase (SGPT), serum 17 1/L [facility] aspartate aminotransferase (SGOT), serum 29 1/L [facility] calcium, serum 9.6 mg/dL [facility] blood glucose, fasting 235 mg/dL [facility] creatinine, serum 1.10 mg/dL [facility] urea nitrogen, blood 18 mg/dL [facility] carbon dioxide, serum, total 23 mmol/L [facility] chloride, serum 105 mmol/L [facility] potassium, serum 4.2 mmol/L [facility] sodium, serum 141 mmol/L [facility] triglyceride, serum, fasting 376 mg/dL [facility] HDL cholesterol, serum 43 mg/dL [facility] LDL cholesterol, serum 129 mg/dL [facility] cholesterol, serum 258 mg/dL [facility] blood glucose, fasting 112 mg/dL [facility] RN creatinine, serum 1.40 mg/dL [facility] RN urea nitrogen, blood 19 mg/dL [facility] RN potassium, serum 4.0 mmol/L Jennifer Lee RN sodium, serum 142 mmol/L Jennifer Lee RN platelet count 255 10*3/uL Jennifer Lee RN hematocrit, blood 39.8 % Jennifer Lee RN hemoglobin, blood 13.7 g/dL Jennifer Lee RN erythrocyte (RBC) count 4.73 10*6/mm3 Jennifer Lee RN leukocyte count, blood 8.9 10*3/mm3 Jennifer Lee RN HISTORY OF MEDICATION USE Medication Status Instructions Dates Provider Indications Com ments ELISSANEOMANDI KINJALIKPEN 100 UNIT/ML SUBCUTANEOUS SOLUTION PEN-INJECTOR active 40 units twice daily Elijah Becerra MD JARDIANCE 25 MG ORAL TABLET active once daily Fiona Rodriguez CLONIDINE HCL 0.1 MG ORAL TABLET active ONE TAB. TWICE DAILY Fiona Rodriguez GABAPENTIN 300 MG ORAL CAPSULE active 3 times daily Fiona Rodriguez AMLODIPINE BESYLATE 5 MG ORAL TABLET active ONE TAB. DAILY Fiona Rodriguez ATORVASTATIN CALCIUM 80 MG ORAL TABLET active once daily Fiona Rodriguez ASPIRIN ADULT LOW DOSE 81 MG ORAL TABLET DELAYED RELEASE active One Tab By Mouth Daily Elijah Becerra MD OMEPRAZOLE 20 MG ORAL TABLET DELAYED RELEASE active 1 tab daily Chris Shannon LANTUS 100 UNIT/ML SUBCUTANEOUS SOLUTION completed 25 units at bedtime - Fiona Rodriguez VIAGRA 100 MG ORAL TABLET completed prn - Fiona Rodriguez ATORVASTATIN CALCIUM 20 MG ORAL TABLET completed 1 tab daily - Elijah Becerra MD PRAZOSIN HCL 2 MG ORAL CAPSULE completed 1 tab daily - Fiona Rodriguez DULOXETINE HCL 60 MG ORAL CAPSULE DELAYED RELEASE PARTICLES completed 1 tab daily - Fiona Rodriguez CARVEDILOL 25 MG ORAL TABLET active 1 tab 2x daily Chris Shannon CARTIA XT 180 MG ORAL CAPSULE EXTENDED RELEASE 24 HOUR completed 1 tab daily - Fiona Rodriguez LOSARTAN POTASSIUM-HCTZ 100-25 MG ORAL TABLET completed 1 tab 2x daily - Fiona Rodriguez GLIPIZIDE 10 MG ORAL TABLET completed 1 tab 2x daily - Fiona Michael GLUCOPHAGE 500 MG ORAL TABLET completed take one pill three times a day - Chris Shannon LOSARTAN HCTZ 50-12.5MG completed Take 1 tablet daily - Chris Shannon ATORVASTATIN CALCIUM 40 MG ORAL TABLET completed 1 tab by mouth daily(replaces pravachol) - Chris Shannon TRICOR 48 MG ORAL TABLET completed 1 TAB AT BEDTIME - Sharon Shankar FERROUS SULFATE TABLET completed 1 TAB DAILY - Rancho Medina RN ACETADRYL TABLET completed 1 CAP DAILY - Rancho Medina RN AUGMENTIN TABLET completed 1 TAB DAILY - Rancho Medina RN CYMBALTA 30 MG ORAL CAPSULE DELAYED RELEASE PARTICLES completed one daily - Chris Shannon CIALIS 10 MG ORAL TABLET completed one tablet as needed do not take with nitrates. - Chris Shannon PRAVACHOL 40 MG ORAL TABLET completed ONCE DAILY - Navin Castro CIALIS 10 MG ORAL TABLET completed po as needed - Vanesa [place] PRAVACHOL 40 MG ORAL TABLET completed po one at night - Vanesa [place] TRICOR 48 MG ORAL TABLET completed 1 tablet by mouth daily - Jennifer Lee RN ISOSORBIDE DINITRATE 20 MG ORAL TABLET completed one tab three times daily - Khushboo Romero MA METOPROLOL TARTRATE 100 MG ORAL TABLET completed 1 tablet by mouth daily - Rancho Medina RN CARDIZEM CD 120 MG ORAL CAPSULE EXTENDED RELEASE 24 HOUR completed once daily - Chris Shannon INDOMETHACIN 25 MG ORAL CAPSULE completed 1 tablet by mouth twice daily - Elijah Becerra MD RANEXA 500 MG ORAL TABLET EXTENDED RELEASE 12 HOUR completed ONE TAB. DAILY - Rancho Medina RN CARVEDILOL 25 MG ORAL TABLET completed twice daily - Chris Shannon HYDROCHLOROT completed 25 mg daily - Khushboo Romero MA BENICAR HCT 40-12.5 MG ORAL TABLET completed once daily - Rivka Younger RN PERCOCET 7.5-325 MG ORAL TABLET completed 1 TAB EVERY 6 HRS FOR PAIN NEEDED - Chris Shannon LISINOPRIL 20 MG ORAL TABLET completed 1 tablet by mouth daily - Khushboo Romero MA PLAVIX 75 MG ORAL TABLET completed ONE TAB. DAILY - Chris Shannon ASPIRIN 81 MG ORAL TABLET completed 1 tab once a day - Rancho Medina RN GLIPIZIDE 5 MG ORAL TABLET completed twice daily - Chris Shannon METOPROLOL TARTRATE 100 MG ORAL TABLET completed - Elijah Becerra MD PRAVASTATIN SODIUM 40 MG ORAL TABLET completed ONE TAB. DAILY - Khushboo Romero MA INDOMETHACIN 50 MG ORAL CAPSULE completed - Indra Swan PRAVASTATIN SODIUM TABLET completed 40mg po at night - Khushboo Romero MA METOPROLOL TARTRATE 50 MG ORAL TABLET completed - Karen Mcgee NITROSTAT 0.4 MG SUBLINGUAL TABLET SUBLINGUAL completed as needed - Chris Shannon SOCIAL HISTORY Date Observation Value Provider social history E&M Marital Statu s: L sierra with family/friends E thnicity: Smoking History: P atient currently smokes every day. P atient has been counseled to quit. Elijah Becerra MD social history reviewed E&M revi ewed - no changes required Elijah Becerra MD smoking/tobacco cess ation, patient education and counseling yes Elijah Becerra MD physical exercise, f requency, days per week yes Fiona Rodriguez caffeine use, averag e drinks per day no Fiona Rodriguez passive cigarette sm ann exposure yes Fiona Rodriguez smoking, date started 1974 Ligia Rodriguez smoking history, tot al pack/year 39 Fiona Rodriguez smoking history, tot al pack/day 1/2 Fiona Rodriguez cigarette use yes Fiona rich smoking status Current every day smoker Ewa Rodriguez social history E&M Marital Statu s: Diaz esquivel with family/friends E thnicity: Smoking History: P ated currently smokes every day. P ated has been counseled to quit. Elijah Becerra MD social history reviewed E&M revi ewed - no changes required Elijah Becerra MD number of grandchildren [facility] physical exercise, f requency, days per week yes [facility] alcohol counseling no Chris Laverne [place] In the past 3 months , have you been waking up wanting to use drugs? (CAGE substance use question #4) N [facility] In the past 3 months , have you felt guilty or bad about using drugs? (CAGE substance use question #3) N [facility] In the past 3 months , has anyone annoyed you by telling you to cut down or stop using drugs? (CAGE substance use question #2) N [facility] In the past 3 months , have you felt you should cut down or stop using drugs?(CAGE substance use question #1) N Vincent alcohol use, average drinks per day [facility] type BEER Vincent In gram alcohol use yes [facility] caffeine use, averag e drinks per day [facility] use no Vincent Louisa smoking/tobacco cess ation, patient education and counseling yes Chris Louisa passive cigarette sm ann exposure yes Chris Louisa smoking, date started 1974 Kill n Shannon smoking history, tot al pack/year 39 Chris Shannon smoking history, tot al pack/day 1/2 Chris Louisa cigarette use yes Vincent Louisa smoking status Current every day smoker Elo zavala Louisa social history E&M Marital Statu s: L sierra with family/friends E thnicity: Smoking History: P ated currently smokes every day. P ated has been counseled to quit. Elijah Becerra MD physical exercise, f requency, days per week yes Elijah Becerra MD alcohol counseling no Elijah Becerra MD In the past 3 months , have you been waking up wanting to use drugs? (CAGE substance use question #4) Paris Becerra MD In the past 3 months , have you felt guilty or bad about using drugs? (CAGE substance use question #3) Paris Becerra MD In the past 3 months , has anyone annoyed you by telling you to cut down or stop using drugs? (CAGE substance use question #2) Paris Becerra MD In the past 3 months , have you felt you should cut down or stop using drugs?(CAGE substance use question #1) Paris Becerra MD alcohol use, average drinks per day none Elijah Becerra MD alcohol use, type BEER Elijah harkins MD caffeine use, averag e drinks per day no Elijah Becerra MD drug use no Elijah Becerra MD passive cigarette sm ann exposure yes Elijah Becerra MD smoking/tobacco cess ation, patient education and counseling yes Elijah Becerra MD smoking, date started 1975 Ryder Becerra MD smoking history, tot al pack/year 39 Elijah Becerra MD smoking history, tot al pack/day 1/2 Elijah Becerra MD cigarette use yes Elijah Becerra MD smoking status Current every day smoker M juan david Becerra MD social history reviewed E&M revi ewed - no changes required Elijah Becerra MD smoking/tobacco cess ation, patient education and counseling yes Liz Ding NP smoking history, tot al pack/year 39 Sharon Shankar smoking/tobacco cess ation, patient education and counseling yes Elijah Becerra MD social history reviewed E&M reviewed Elijah Becerra MD smoking history, tot al pack/year 38 David Grace social history reviewed E&M reviewed Rancho Medina RN smoking history, tot al pack/year 38 Rancho Medina RN social history reviewed E&M reviewed Rancho Medina RN drug use no David Grace smoking/tobacco cess ation, patient education and counseling yes Elijah Becerra MD passive cigarette sm ann exposure yes David Grace smoking history, tot al pack/day 1/2 David Grace smoking history, tot al pack/year 38 David Grace cigarette use yes David harrell smoking, date started 1975 Simona Grace alcohol counseling no David hill In the past 3 months , have you been waking up wanting to use drugs? (CAGE substance use question #4) N David Grace In the past 3 months , have you felt guilty or bad about using drugs? (CAGE substance use question #3) N David Grace In the past 3 months , has anyone annoyed you by telling you to cut down or stop using drugs? (CAGE substance use question #2) Paris Grace In the past 3 months , have you felt you should cut down or stop using drugs?(CAGE substance use question #1) Paris Grace alcohol use, type BEER David nguyen smoking status current every day smoker D kinsey Grace smoking status smoker - current status unknown David Grace social history reviewed E&M reviewed [place] RN smoking/tobacco cess ation, patient education and counseling yes [place] RN social history reviewed E&M reviewed [place] RN social history reviewed E&M reviewed [place] RN smoking/tobacco cess ation, patient education and counseling yes Elijah Becerra MD social history reviewed E&M reviewed [place] RN social history reviewed E&M reviewed Elijah Becerra MD smoking/tobacco cess ation, patient education and counseling yes [place] RN social history reviewed E&M reviewed [place] RN smoking/tobacco cess ation, patient education and counseling yes [place] RN social history E&M Marital Statu s: L sierra with family/friends E thnicity: [place] RN social history reviewed E&M reviewed [place] RN smoking/tobacco cess ation, patient education and counseling yes Elijah Becerra MD smoking status Smoker [place] RN social history reviewed E&M reviewed [place] RN social history reviewed E&M reviewed [place] RN social history reviewed E&M reviewed [place] RN drug use none Elijah Becerra MD social history E&M Marital Statu s: L sierra with family/friends E thnicity: [place] RN social history reviewed E&M reviewed [place] RN smoking/tobacco cess ation, patient education and counseling yes Elijah Becerra MD smoking status current Elijah adorno MD physical exercise, f requency, days per week yes [employer] caffeine use, averag e drinks per day no [employer] alcohol use, average drinks per day none [employer] smoking status Quit [employer]Log FUNCTIONAL STATUS Date Observation Value Provider HRA, CV Assess/Plan, Angina (inactive) Management Plan continue current therapy Inderjit Jacobte HRA, CV Assess/Plan, Angina (inactive) Management Plan continue current therapy Elijah Becerra MD MENTAL STATUS Date Observation Value Provider assessment of judgme nt and insight E&M Alert and oriented to time, place and person. Mood and affect are normal. Liz Ding NP assessment of judgme nt and insight E&M Alert and oriented to time, place and person. Mood and affect are normal. Elijah Becerra MD assessment of judgme nt and insight E&M Alert and oriented to time, place and person. Mood and affect are normal. [place]ina RN assessment of judgme nt and insight E&M Alert and oriented to time, place and person. Mood and affect are normal. [place] RN assessment of judgme nt and insight E&M Alert and oriented to time, place and person. Mood and affect are normal. [place] RN assessment of judgme nt and insight E&M Alert and oriented to time, place and person. Mood and affect are normal. [place] RN assessment of judgme nt and insight E&M Alert and oriented to time, place and person. Mood and affect are normal. [place] Med[place] RN assessment of judgme nt and insight E&M Alert and oriented to time, place and person. Mood and affect are normal. [place] RN assessment of judgme nt and insight E&M Alert and oriented to time, place and person. Mood and affect are normal. Elijah Becerra MD assessment of judgme nt and insight E&M Alert and oriented to time, place and person. Mood and affect are normal. [place] RN assessment of judgme nt and insight E&M Alert and oriented to time, place and person. Mood and affect are normal. Elijah Becerra MD assessment of judgme nt and insight E&M Alert and oriented to time, place and person. Mood and affect are normal. [place] RN assessment of judgme nt and insight E&M Alert and oriented to time, place and person. Mood and affect are normal. [place] RN assessment of judgme nt and insight E&M Alert and oriented to time, place and person. Mood and affect are normal. [place] RN assessment of judgme nt and insight E&M Alert and oriented to time, place and person. Mood and affect are normal. [place] Med[place] RN assessment of judgme nt and insight E&M Alert and oriented to time, place and person. Mood and affect are normal. [place] Med[place] RN assessment of judgme nt and insight E&M Alert and oriented to time, place and person. Mood and affect are normal. Elijah Becerra MD FAMILY HISTORY Family Member Condition Father Family History of Hy pertension: Father Family History of Hy perlipidemia: Father Family History of Di abetes: Father Family History of CV A or Stroke: Father Family History of Ar thritis: Father Family History of Al coholism: Mother Family History of Madsen dden Cardiac : Mother Family History of CV A or Stroke: INSURANCE PROVIDERS Payer name Policy type / Coverage type [facility] [employer] [facility] [id number] TREATMENT PLAN Date Name Performer Cardiology:STRONGLY ENCOURAGED TO STOP SMOKING; SMOKING CESSATION TECHNIQUES DISCUSSED. Inderjit Omer Cardiology:Recent co lonoscopy at [place] was normal per patient. Inderjit Omer Cardiology:Continues on Jardiance and Basaglar. Reduced intake of carbohydrates and sugars advised. Inderjit Omer Cardiology:Continues on Atorvastatin 80mg daily. We aim for an LDL <70. He would benefit from a lipid panel. Inderjit Omer Cardiology:BP 144/90 . Advised reduced sodium intake and routine monitoring of the blood pressure. We aim for blood pressure less than 130/80. No changes to antihypertensives made. Inderjit Omer Cardiology:Chest lesli n free. Effort tolerance stable. He continues on Aspirin 81mg daily. Inderjit Jacobpalomo Cardiology New patient :Continue s on Atorvastatin. Elijah Becerra MD Cardiology New patie nt :Continues on Lantus and Glipizide. Elijah Becerra MD Cardiology New patie nt :Blood pressure elevated in office today at 150/80. No changes to antihypertensive medications have been made. Will continue to monitor. Elijah Becerra MD Cardiology New patie nt :Burning sensation in the chest with previous history of stents. Will arrange stress and echo. Elijah Becerra MD Follow up Elijah Sanchez Follow up : H is updated medication list for this problem includes: Cardizem Cd 120 Mg [id number] (Diltiazem hcl coated beads) ..... Once daily Carvedilol 25 Mg Tabs (Carvedilol) ..... Twice daily Elijah Becerra MD Follow up Elijah Sanchez Follow up : T he following medications were removed from the medication list: Tricor 48 Mg Tabs (Fenofibrate) ..... 1 tab at bedtime His updated medication list for this problem includes: Atorvastatin Calcium 40 Mg Tabs (Atorvastatin calcium) ..... 1 tab by mouth daily(replaces pravachol) Elijah Becerra MD Follow up : T he following medications were removed from the medication list: Tricor 48 Mg Tabs (Fenofibrate) ..... 1 tab at bedtime His updated medication list for this problem includes: Plavix 75 Mg Tabs (Clopidogrel bisulfate) ..... One tab. daily Cardizem Cd 120 Mg [id number] (Diltiazem hcl coated beads) ..... Once daily Carvedilol 25 Mg Tabs (Carvedilol) ..... Twice daily Nitrostat 0.4 Mg Subl (Nitroglycerin) ..... As needed Atorvastatin Calcium 40 Mg Tabs (Atorvastatin calcium) ..... 1 tab by mouth daily(replaces pravachol) Orders: Joann UPTON ([id number]) Elijah Becerra MD Follow up : T he following medications were removed from the medication list: Tricor 48 Mg Tabs (Fenofibrate) ..... 1 tab at bedtime His updated medication list for this problem includes: Plavix 75 Mg Tabs (Clopidogrel bisulfate) ..... One tab. daily Cardizem Cd 120 Mg [id number] (Diltiazem hcl coated beads) ..... Once daily Carvedilol 25 Mg Tabs (Carvedilol) ..... Twice daily Nitrostat 0.4 Mg Subl (Nitroglycerin) ..... As needed Atorvastatin Calcium 40 Mg Tabs (Atorvastatin calcium) ..... 1 tab by mouth daily(replaces pravachol) Elijah Becerra MD 6 month follow-up: H is updated medication list for this problem includes: Fenofibrate 54 Mg Tabs (Fenofibrate) ..... One a day @ betime (replaces your tricor) Plavix 75 Mg Tabs (Clopidogrel bisulfate) ..... One tab. daily Cardizem Cd 120 Mg [id number] (Diltiazem hcl coated beads) ..... Once daily Carvedilol 25 Mg Tabs (Carvedilol) ..... Twice daily Aspirin 81 Mg Tabs (Aspirin) ..... 2 once daily Nitrostat 0.4 Mg Subl (Nitroglycerin) ..... As needed Ranexa 500 Mg Tb12 (Ranolazine) ..... One tab. daily BP today: 135/91 Prior BP: 126/78 (04/30/2009) Nuclear Stress Findings: 1. Adenosine mediated myocardial perfusion study 2 . Normal left ventricular systolic function with a calculated ejection fraction of 61%. 3 . Myocardial scintigraphy demonstrates inferior wall ischemia. GC (12/11/2008) C ardiac Cath: Coronary artery disease. Patent stents in the right coronary artery and the circumflex. Normal left ventricular systolic function with an ejection fraction of 55%. [facility] (12/25/2008) C ardiac Cath Comments: 2.0 x 8mm Vision stent right posterolateral branch 2 .0 x 15mm Vision stent distal left circumflex 2 .5 x 8mm Taxus stent proximal left circumflex. (10/18/2007) C arotid Doppler/Duplex: Normal GC (12/11/2008) C HOL: 258 (12/03/2008) LDL: 129 (12/03/2008) HDL: 43 (12/03/2008) T (12/03/2008) H gb: 12.4 (12/20/2008) HCT: 36.8 (12/20/2008) RBC: 4.33 (12/20/2008) WBC: 7.1 (12/20/2008) B UN: 18 (12/03/2008) Creat: 1.10 (12/03/2008) Glucose: 235 (12/03/2008) Na+: 141 (12/03/2008) K+: 4.2 (12/03/2008) Cl: 105 (12/03/2008) PT: 10.6 (12/20/2008) INR: 1.0 (12/20/2008) Elijah Becerra MD 6 month follow-up: H is updated medication list for this problem includes: Glipizide 5 Mg Tabs (Glipizide) ..... Twice daily Aspirin 81 Mg Tabs (Aspirin) ..... 2 once daily Benicar Hct 40-12.5 Mg Tabs (Olmesartan medoxomil-hctz) ..... Once daily BP today: 135/91 Prior BP: 126/78 (04/30/2009) Labs Reviewed: H gBA1c: 7.7 (12/03/2008) Creat: 1.10 (12/03/2008) Elijah Becerra MD 6 month follow-up: H is updated medication list for this problem includes: Cardizem Cd 120 Mg [id number] (Diltiazem hcl coated beads) ..... Once daily Carvedilol 25 Mg Tabs (Carvedilol) ..... Twice daily Aspirin 81 Mg Tabs (Aspirin) ..... 2 once daily Benicar Hct 40-12.5 Mg Tabs (Olmesartan medoxomil-hctz) ..... Once daily BP today: 135/91 P rior BP: 126/78 (04/30/2009) Labs Reviewed: C reat: 1.10 (12/03/2008) C hol: 258 (12/03/2008) HDL: 43 (12/03/2008) LDL: 129 (12/03/2008) T (12/03/2008) Elijah Becerra MD 6 month follow-up: H is updated medication list for this problem includes: Fenofibrate 54 Mg Tabs (Fenofibrate) ..... One a day @ betime (replaces your tricor) Plavix 75 Mg Tabs (Clopidogrel bisulfate) ..... One tab. daily Cardizem Cd 120 Mg [id number] (Diltiazem hcl coated beads) ..... Once daily Carvedilol 25 Mg Tabs (Carvedilol) ..... Twice daily Aspirin 81 Mg Tabs (Aspirin) ..... 2 once daily Nitrostat 0.4 Mg Subl (Nitroglycerin) ..... As needed Ranexa 500 Mg Tb12 (Ranolazine) ..... One tab. daily BP today: 135/91 Prior BP: 126/78 (04/30/2009) Nuclear Stress Findings: 1. Adenosine mediated myocardial perfusion study 2 . Normal left ventricular systolic function with a calculated ejection fraction of 61%. 3 . Myocardial scintigraphy demonstrates inferior wall ischemia. (12/11/2008) C ardiac Cath: Coronary artery disease. Patent stents in the right coronary artery and the circumflex. Normal left ventricular systolic function with an ejection fraction of 55%. [facility] (12/25/2008) C ardiac Cath Comments: 2.0 x 8mm Vision stent right posterolateral branch 2 .0 x 15mm Vision stent distal left circumflex 2 .5 x 8mm Taxus stent proximal left circumflex. (10/18/2007) C arotid Doppler/Duplex: Normal (12/11/2008) C HOL: 258 (12/03/2008) LDL: 129 (12/03/2008) HDL: 43 (12/03/2008) T (12/03/2008) H gb: 12.4 (12/20/2008) HCT: 36.8 (12/20/2008) RBC: 4.33 (12/20/2008) WBC: 7.1 (12/20/2008) B UN: 18 (12/03/2008) Creat: 1.10 (12/03/2008) Glucose: 235 (12/03/2008) Na+: 141 (12/03/2008) K+: 4.2 (12/03/2008) Cl: 105 (12/03/2008) PT: 10.6 (12/20/2008) INR: 1.0 (12/20/2008) Elijah Becerra MD 6 month follow-up Elijah Becerra MD 6 month follow-up Elijah Becerra MD 6 month follow-up: H is updated medication list for this problem includes: Glipizide 5 Mg Tabs (Glipizide) ..... Twice daily Aspirin 81 Mg Tabs (Aspirin) ..... 2 once daily Benicar Hct 40-12.5 Mg Tabs (Olmesartan medoxomil-hctz) ..... Once daily BP today: 135/91 Prior BP: 126/78 (04/30/2009) Labs Reviewed: H gBA1c: 7.7 (12/03/2008) Creat: 1.10 (12/03/2008) Elijah Becerra MD 6 month follow-up: H is updated medication list for this problem includes: Plavix 75 Mg Tabs (Clopidogrel bisulfate) ..... One tab. daily Cardizem Cd 120 Mg [id number] (Diltiazem hcl coated beads) ..... Once daily Carvedilol 25 Mg Tabs (Carvedilol) ..... Twice daily Aspirin 81 Mg Tabs (Aspirin) ..... 2 once daily Nitrostat 0.4 Mg Subl (Nitroglycerin) ..... As needed Ranexa 500 Mg Tb12 (Ranolazine) ..... One tab. daily Orders: E KG ([id number]) Elijah Becerra MD Hospital Follow-up s /p Cardiac Cath: H is updated medication list for this problem includes: Tricor 48 Mg Tabs (Fenofibrate) ..... One tab. daily Pravachol 40 Mg Tabs (Pravastatin sodium) ..... Po one at night BP today: 135/82 Prior BP: 119/76 (12/18/2008) C HOL: 258 (12/03/2008) LDL: 129 (12/03/2008) HDL: 43 (12/03/2008) T (12/03/2008) Elijah Becerra MD Hospital Follow-up s /p Cardiac Cath: H is updated medication list for this problem includes: Cardizem Cd 120 Mg [id number] (Diltiazem hcl coated beads) ..... Once daily Carvedilol 25 Mg Tabs (Carvedilol) ..... Twice daily Aspirin 81 Mg Tabs (Aspirin) ..... 2 once daily Benicar Hct 40-12.5 Mg Tabs (Olmesartan medoxomil-hctz) ..... Once daily BP today: 135/82 P rior BP: 119/76 (12/18/2008) Labs Reviewed: C reat: 1.10 (12/03/2008) C hol: 258 (12/03/2008) HDL: 43 (12/03/2008) LDL: 129 (12/03/2008) T (12/03/2008) Elijah Becerra MD Hospital Follow-up s/p Cardiac C ath Elijah Becerra MD Hospital Follow-up s/p Cardiac C ath Elijah Becerra MD Hospital Follow-up s /p Cardiac Cath: H is updated medication list for this problem includes: Tricor 48 Mg Tabs (Fenofibrate) ..... One tab. daily Plavix 75 Mg Tabs (Clopidogrel bisulfate) ..... One tab. daily Cardizem Cd 120 Mg [id number] (Diltiazem hcl coated beads) ..... Once daily Carvedilol 25 Mg Tabs (Carvedilol) ..... Twice daily Aspirin 81 Mg Tabs (Aspirin) ..... 2 once daily Nitrostat 0.4 Mg Subl (Nitroglycerin) ..... As needed Ranexa 500 Mg Tb12 (Ranolazine) ..... One tab. daily Pravachol 40 Mg Tabs (Pravastatin sodium) ..... Po one at night B P today: 135/82 Prior BP: 119/76 (12/18/2008) N uclear Stress Findings: 1. Adenosine mediated myocardial perfusion study 2 . Normal left ventricular systolic function with a calculated ejection fraction of 61%. 3 . Myocardial scintigraphy demonstrates inferior wall ischemia. (12/11/2008) C ardiac Cath: Coronary artery disease. Patent stents in the right coronary artery and the circumflex. Normal left ventricular systolic function with an ejection fraction of 55%. [facility] (12/25/2008) C ardiac Cath Comments: 2.0 x 8mm Vision stent right posterolateral branch 2 .0 x 15mm Vision stent distal left circumflex 2 .5 x 8mm Taxus stent proximal left circumflex. (10/18/2007) C arotid Doppler/Duplex: Normal (12/11/2008) C HOL: 258 (12/03/2008) LDL: 129 (12/03/2008) HDL: 43 (12/03/2008) T (12/03/2008) H gb: 12.4 (12/20/2008) HCT: 36.8 (12/20/2008) RBC: 4.33 (12/20/2008) WBC: 7.1 (12/20/2008) B UN: 18 (12/03/2008) Creat: 1.10 (12/03/2008) Glucose: 235 (12/03/2008) N a+: 141 (12/03/2008) K+: 4.2 (12/03/2008) Cl: 105 (12/03/2008) PT: 10.6 (12/20/2008) INR: 1.0 (12/20/2008) Elijah Becerra MD Hospital Follow-up s/p Cardiac C ath Elijah Becerra MD chest pain: H is updated medication list for this problem includes: Benicar Hct 40-12.5 Mg Tabs (Olmesartan medoxomil-hctz) Glipizide 5 Mg Tabs (Glipizide) Lisinopril 20 Mg Tabs (Lisinopril) ..... 1 tablet by mouth daily Polly Aspirin 325 Mg Tabs (Aspirin) BP today: 134/72 Prior BP: 106/64 (11/08/2007) Labs Reviewed: C reat: 1.40 (10/13/2007) Elijah Becerra MD chest pain: H is updated medication list for this problem includes: Tricor 48 Mg Tabs (Fenofibrate) ..... One tab. daily Pravastatin Sodium 40 Mg Tabs (Pravastatin sodium) ..... One tab. daily Ranexa 500 Mg Tb12 (Ranolazine) ..... One tab. daily Dilt-xr 120 Mg Cp24 (Diltiazem hcl) ..... 1 capsule by mouth daily Plavix 75 Mg Tabs (Clopidogrel bisulfate) ..... One tab. daily Carvedilol 25 Mg Tabs (Carvedilol) ..... 2 tablets by mouth twice daily Lisinopril 20 Mg Tabs (Lisinopril) ..... 1 tablet by mouth daily Nitrolingual 0.4 Mg/spray Soln (Nitroglycerin) ..... As needed Polly Aspirin 325 Mg Tabs (Aspirin) Metoprolol Tartrate 100 Mg Tabs (Metoprolol tartrate) ..... 1 tablet by mouth daily BP today: 134/72 Prior BP: 106/64 (11/08/2007) C ardiac Cath: Successful stenting of the right posterolateral branch and the distal & proximal segments of the left circumflex (10/18/2007) C ardiac Cath Comments: 2.0 x 8mm Vision stent right posterolateral branch 2 .0 x 15mm Vision stent distal left circumflex 2 .5 x 8mm Taxus stent proximal left circumflex. (10/18/2007) H gb: 13.7 (10/13/2007) HCT: 39.8 (10/13/2007) RBC: 4.73 (10/13/2007) WBC: 8.9 (10/13/2007) B UN: 19 (10/13/2007) Creat: 1.40 (10/13/2007) Glucose: 112 (10/13/2007) N a+: 142 (10/13/2007) K+: 4.0 (10/13/2007) Elijah Becerra MD chest pain: H is updated medication list for this problem includes: Tricor 48 Mg Tabs (Fenofibrate) ..... One tab. daily Pravastatin Sodium 40 Mg Tabs (Pravastatin sodium) ..... One tab. daily BP today: 134/72 Prior BP: 106/64 (11/08/2007) Elijah Becerra MD chest pain: H is updated medication list for this problem includes: Benicar Hct 40-12.5 Mg Tabs (Olmesartan medoxomil-hctz) Dilt-xr 120 Mg Cp24 (Diltiazem hcl) ..... 1 capsule by mouth daily Carvedilol 25 Mg Tabs (Carvedilol) ..... 2 tablets by mouth twice daily Lisinopril 20 Mg Tabs (Lisinopril) ..... 1 tablet by mouth daily Polly Aspirin 325 Mg Tabs (Aspirin) Metoprolol Tartrate 100 Mg Tabs (Metoprolol tartrate) ..... 1 tablet by mouth daily BP today: 134/72 P rior BP: 106/64 (11/08/2007) Labs Reviewed: C reat: 1.40 (10/13/2007) Elijah Becerra MD sweating: T he following medications were removed from the medication list: Metoprolol Tartrate 100 Mg Tabs (Metoprolol tartrate) His updated medication list for this problem includes: Nitroquick 0.4 Mg Subl (Nitroglycerin) ..... Prn Tricor 48 Mg Tabs (Fenofibrate) ..... One tab. twice daily Pravastatin Sodium 40 Mg Tabs (Pravastatin sodium) ..... One tab. daily Polly Aspirin 325 Mg Tabs (Aspirin) Plavix 75 Mg Tabs (Clopidogrel bisulfate) ..... One tab. daily Lisinopril 40 Mg Tabs (Lisinopril) ..... One twice daily Carvedilol 25 Mg Tabs (Carvedilol) ..... Twice daily BP today: 106/64 Prior BP: 160/100 (10/11/2007) C ardiac Cath: Successful stenting of the right posterolateral branch and the distal & proximal segments of the left circumflex (10/18/2007) C ardiac Cath Comments: 2.0 x 8mm Vision stent right posterolateral branch 2 .0 x 15mm Vision stent distal left circumflex 2 .5 x 8mm Taxus stent proximal left circumflex. (10/18/2007) H gb: 13.7 (10/13/2007) HCT: 39.8 (10/13/2007) RBC: 4.73 (10/13/2007) WBC: 8.9 (10/13/2007) B UN: 19 (10/13/2007) Creat: 1.40 (10/13/2007) Glucose: 112 (10/13/2007) Na+: 142 (10/13/2007) K+: 4.0 (10/13/2007) O rders: E - Medicare (CPT-G0166) Elijah Becerra MD sweating: H is updated medication list for this problem includes: Glipizide 5 Mg Tabs (Glipizide) Polly Aspirin 325 Mg Tabs (Aspirin) Lisinopril 40 Mg Tabs (Lisinopril) ..... One twice daily Benicar 40 Mg Tabs (Olmesartan medoxomil) BP today: 106/64 Prior BP: 160/100 (10/11/2007) Labs Reviewed: C reat: 1.40 (10/13/2007) Orders: E - Medicare (CPT-G0166) Elijah Becerra MD sweating: T he following medications were removed from the medication list: Metoprolol Tartrate 100 Mg Tabs (Metoprolol tartrate) His updated medication list for this problem includes: Nitroquick 0.4 Mg Subl (Nitroglycerin) ..... Prn Tricor 48 Mg Tabs (Fenofibrate) ..... One tab. twice daily Pravastatin Sodium 40 Mg Tabs (Pravastatin sodium) ..... One tab. daily Polly Aspirin 325 Mg Tabs (Aspirin) Plavix 75 Mg Tabs (Clopidogrel bisulfate) ..... One tab. daily Lisinopril 40 Mg Tabs (Lisinopril) ..... One twice daily Carvedilol 25 Mg Tabs (Carvedilol) ..... Twice daily BP today: 106/64 Prior BP: 160/100 (10/11/2007) C ardiac Cath: Successful stenting of the right posterolateral branch and the distal & proximal segments of the left circumflex (10/18/2007) C ardiac Cath Comments: 2.0 x 8mm Vision stent right posterolateral branch 2 .0 x 15mm Vision stent distal left circumflex 2 .5 x 8mm Taxus stent proximal left circumflex. (10/18/2007) H gb: 13.7 (10/13/2007) HCT: 39.8 (10/13/2007) RBC: 4.73 (10/13/2007) WBC: 8.9 (10/13/2007) B UN: 19 (10/13/2007) Creat: 1.40 (10/13/2007) Glucose: 112 (10/13/2007) N a+: 142 (10/13/2007) K+: 4.0 (10/13/2007) Elijah Becerra MD sweating: H is updated medication list for this problem includes: Glipizide 5 Mg Tabs (Glipizide) Polly Aspirin 325 Mg Tabs (Aspirin) Lisinopril 40 Mg Tabs (Lisinopril) ..... One twice daily Benicar 40 Mg Tabs (Olmesartan medoxomil) BP today: 106/64 Prior BP: 160/100 (10/11/2007) Labs Reviewed: C reat: 1.40 (10/13/2007) Elijah Becerra MD sweating: H is updated medication list for this problem includes: Tricor 48 Mg Tabs (Fenofibrate) ..... One tab. twice daily Pravastatin Sodium 40 Mg Tabs (Pravastatin sodium) ..... One tab. daily BP today: 106/64 Prior BP: 160/100 (10/11/2007) Elijah Becerra MD sweating Elijah Sanchez sweating:Recurrent a ngina. Needs ECP. T he following medications were removed from the medication list: Metoprolol Tartrate 100 Mg Tabs (Metoprolol tartrate) His updated medication list for this problem includes: Nitroquick 0.4 Mg Subl (Nitroglycerin) ..... Prn Tricor 48 Mg Tabs (Fenofibrate) ..... One tab. twice daily Pravastatin Sodium 40 Mg Tabs (Pravastatin sodium) ..... One tab. daily Polly Aspirin 325 Mg Tabs (Aspirin) Plavix 75 Mg Tabs (Clopidogrel bisulfate) ..... One tab. daily Lisinopril 40 Mg Tabs (Lisinopril) ..... One twice daily Carvedilol 25 Mg Tabs (Carvedilol) ..... Twice daily BP today: 106/64 Prior BP: 160/100 (10/11/2007) C ardiac Cath: Successful stenting of the right posterolateral branch and the distal & proximal segments of the left circumflex (10/18/2007) C ardiac Cath Comments: 2.0 x 8mm Vision stent right posterolateral branch 2 .0 x 15mm Vision stent distal left circumflex 2 .5 x 8mm Taxus stent proximal left circumflex. (10/18/2007) H gb: 13.7 (10/13/2007) HCT: 39.8 (10/13/2007) RBC: 4.73 (10/13/2007) WBC: 8.9 (10/13/2007) B UN: 19 (10/13/2007) Creat: 1.40 (10/13/2007) Glucose: 112 (10/13/2007) N a+: 142 (10/13/2007) K+: 4.0 (10/13/2007) O rders: E - Medicare (CPT-G0166) Elijah Becerra MD sweating: T he following medications were removed from the medication list: Metoprolol Tartrate 100 Mg Tabs (Metoprolol tartrate) His updated medication list for this problem includes: Polly Aspirin 325 Mg Tabs (Aspirin) Lisinopril 40 Mg Tabs (Lisinopril) ..... One twice daily Benicar 40 Mg Tabs (Olmesartan medoxomil) Carvedilol 25 Mg Tabs (Carvedilol) ..... Twice daily BP today: 106/64 P rior BP: 160/100 (10/11/2007) Labs Reviewed: C reat: 1.40 (10/13/2007) Orders: E CP - Medicare (CPT-G0166) Elijah Becerra MD cp:Continues to have arecurrent chest pain. Needs cardiac catheterization. T he following medications were removed from the medication list: Metoprolol Tartrate 50 Mg Tabs (Metoprolol tartrate) His updated medication list for this problem includes: Nitroquick 0.4 Mg Subl (Nitroglycerin) ..... Prn Tricor 48 Mg Tabs (Fenofibrate) ..... One tab. twice daily Pravastatin Sodium 40 Mg Tabs (Pravastatin sodium) ..... One tab. daily Metoprolol Tartrate 100 Mg Tabs (Metoprolol tartrate) Polly Aspirin 325 Mg Tabs (Aspirin) Plavix 75 Mg Tabs (Clopidogrel bisulfate) ..... One tab. daily Lisinopril 40 Mg Tabs (Lisinopril) ..... One twice daily BP today: 160/100 Prior BP: / () Orders: E KG ([id number]) C omplete Echo ([id number]) Elijah Becerra MD cp:BP elevated. T he following medications were removed from the medication list: Metoprolol Tartrate 50 Mg Tabs (Metoprolol tartrate) His updated medication list for this problem includes: Metoprolol Tartrate 100 Mg Tabs (Metoprolol tartrate) Polly Aspirin 325 Mg Tabs (Aspirin) Lisinopril 40 Mg Tabs (Lisinopril) ..... One twice daily Benicar 20 Mg Tabs (Olmesartan medoxomil) ..... Po once daily BP today: 160/100 Orders: E KG ([id number]) C omplete Echo ([id number]) Elijah Becerra MD cp:Pain legs on walk ing. Needs ROBERT O rders: A rterial Duplex LLE ([id number]) Elijah Becerra MD cp: H is updated medication list for this problem includes: Glipizide 5 Mg Tabs (Glipizide) Polly Aspirin 325 Mg Tabs (Aspirin) Lisinopril 40 Mg Tabs (Lisinopril) ..... One tab. daily BP today: 160/100 Prior BP: / () Elijah Becerra MD cp: H is updated medication list for this problem includes: Tricor 48 Mg Tabs (Fenofibrate) ..... One tab. twice daily Pravastatin Sodium 40 Mg Tabs (Pravastatin sodium) ..... One tab. daily BP today: 160/100 Prior BP: / () Elijah Becerra MD cp: T he following medications were removed from the medication list: Metoprolol Tartrate 50 Mg Tabs (Metoprolol tartrate) His updated medication list for this problem includes: Metoprolol Tartrate 100 Mg Tabs (Metoprolol tartrate) Polly Aspirin 325 Mg Tabs (Aspirin) Lisinopril 40 Mg Tabs (Lisinopril) ..... One tab. daily BP today: 160/100 Elijah Becerra MD cp:Continues to have arecurrent chest pain. Needs cardiac catheterization. T he following medications were removed from the medication list: Metoprolol Tartrate 50 Mg Tabs (Metoprolol tartrate) His updated medication list for this problem includes: Nitroquick 0.4 Mg Subl (Nitroglycerin) ..... Prn Tricor 48 Mg Tabs (Fenofibrate) ..... One tab. twice daily Pravastatin Sodium 40 Mg Tabs (Pravastatin sodium) ..... One tab. daily Metoprolol Tartrate 100 Mg Tabs (Metoprolol tartrate) Polly Aspirin 325 Mg Tabs (Aspirin) Plavix 75 Mg Tabs (Clopidogrel bisulfate) ..... One tab. daily Lisinopril 40 Mg Tabs (Lisinopril) ..... One tab. daily BP today: 160/100 Prior BP: / () Orders: Joann KG ([id number]) Elijah Becerra MD ready to sign:BP pawan vated. If remains elevated will add more antihtn med His updated medication list for this problem includes: Metoprolol Tartrate 50 Mg Tabs (Metoprolol tartrate) Metoprolol Tartrate 100 Mg Tabs (Metoprolol tartrate) Polly Aspirin 325 Mg Tabs (Aspirin) Lisinopril 40 Mg Tabs (Lisinopril) ..... One tab. daily Elijah Becerra MD ready to sign: H is updated medication list for this problem includes: Tricor 48 Mg Tabs (Fenofibrate) ..... One tab. twice daily Pravastatin Sodium 40 Mg Tabs (Pravastatin sodium) ..... One tab. daily Elijah Becerra MD ready to sign: H is updated medication list for this problem includes: Glipizide 5 Mg Tabs (Glipizide) Polly Aspirin 325 Mg Tabs (Aspirin) Lisinopril 40 Mg Tabs (Lisinopril) ..... One tab. daily Elijah Becerra MD ready to sign:Still have angina. Will benefit from nitropatch 0.2mg/hr H is updated medication list for this problem includes: Nitroquick 0.4 Mg Subl (Nitroglycerin) ..... Prn Metoprolol Tartrate 50 Mg Tabs (Metoprolol tartrate) Tricor 48 Mg Tabs (Fenofibrate) ..... One tab. twice daily Pravastatin Sodium 40 Mg Tabs (Pravastatin sodium) ..... One tab. daily Metoprolol Tartrate 100 Mg Tabs (Metoprolol tartrate) Polly Aspirin 325 Mg Tabs (Aspirin) Plavix 75 Mg Tabs (Clopidogrel bisulfate) ..... One tab. daily Lisinopril 40 Mg Tabs (Lisinopril) ..... One tab. daily Elijah Becerra MD Date Name Aorta Duplex Ultraso und (AAA) STR - Adenosine Complete Echo STR - Nuclear Complete Echo HEMOGLOBIN A1c LIPID PANEL Cardiopulmonary Stre ss Test Arterial Duplex Lowe r Extremity Bilateral Stress Test - Adenos ine Aortic Abdominal Unt rasound Renal Artery Duplex Carotid Duplex Bilat eral Complete Echo Stress Test - Adenos ine Complete Echo Cardiac Cath - GC HEMOGLOBIN A1c LIPID PANEL COMPREHENSIVE METABO LIC PANEL W/EGFR Complete Echo Carotid Duplex Bilat eral Stress Test - Nuclea r ECP Commercial ECP - Medicare Arterial Duplex LLE Complete Echo HISTORY OF PROCEDURES Procedure Date Procedure Name Provider Procedure Notes S tatus EKG Elijah Becerra MD complet ed Regadenoson, 4 units Elijah Becerra MD completed Cardiolite, 2 units Elijah Becerra MD completed SPECT Images Gavin Gaines MD complet ed Stress EKG Sarabjit Hurt MD completed EKG Elijah Becerra MD complet ed EKG Elijah Becerra MD complet ed EKG Elijah Becerra MD complet ed EKG Elijah Becerra MD complet ed EKG Elijah Becerra MD complet ed EKG Elijah Becerra MD complet ed EKG Elijah Becerra MD complet ed
[2024-05-22 17:28] LABS: Basophils Absolute Auto 0.1 K/mm3 (0.0-0.1); Basophils Percent Auto 0.6 % (0.2-1.2); Eosinophils Absolute Auto 0.2 K/mm3 (0-0.3); Eosinophils Percent Auto 1.8 % (0-4.4); Hematocrit 40.1 % (42.0-52.0); Hemoglobin 12.9 g/dL (14.0-18.0); Immature Granulocyte Absolute 0.02 K/mm3 (0.00-0.031); Immature Granulocyte Percent A 0.2 % (0-0.5); Lymphocytes Absolute Auto 2.46 K/mm3 (0.9-3.2); Lymphocytes Percent Auto 29.8 % (18.3-44.2); Mean Corpuscular HGB Conc 32.2 g/dl (32-36); Mean Corpuscular Hemoglobin 27.7 pg (26-34); Mean Corpuscular Volume 86.1 fl (80-100); Mean Platelet Volume 10.1 fl (7.4-10.4); Monocytes Absolute Auto 0.5 K/mm3 (0.1-0.6); Monocytes Percent Auto 6.4 % (2.6-8.5); Neutrophils Percent Auto 61.2 % (45.5-73.1); Platelet Count Result 236 k/mm3 (150-375); Red Blood Count 4.66 M/mm3 (4.6-6.20); Red Cell Distribution Width 16.1 % (11.5-14.5); White Blood Count 8.3 K/mm3 (4.5-10.0)
[2024-05-22 17:35] LABS: Alanine Aminotransferase 16 U/L (6-50); Albumin Level 4.3 g/dL (3.5-5.1); Alkaline Phosphatase 83 U/L (38-126); Anion Gap 10 mmol/L (4-12); Aspartate Amino Transferase 18 U/L (17-59); Bilirubin,Total 0.4 mg/dL (0.2-1.3); Blood Urea Nitrogen 18 mg/dL (9-20); Calcium 9.2 mg/dL (8.4-10.2); Carbon Dioxide 20 mmol/L (22-30); Chloride 114 mmol/L (98-107); Cholesterol 200 mg/dL (0-200); Estimated Glomerular Filt Rate 35; Glucose 117 mg/dL (65-110); HDL Direct 32 mg/dL; Potassium 3.9 mmol/L (3.4-5.0); Sodium 144 mmol/L (137-145); Triglycerides 190 mg/dL (<150)
[2024-05-22 17:45] LABS: LDL Cholesterol Direct 98 mg/dL
[2024-05-22 18:04] LABS: Prostate Specific Antigen 3.1 ng/mL (< OR = 4.0)
[2024-05-22 18:41] LABS: Hepatitis C Virus Antibody Negative (Negative)
== END 2024-05-22 16:18 | disposition home or self-care (01) ==
LOC: ANHLAB 16:18
PROVIDERS: PCP Family Medicine; Visit Provider Family Medicine
DX: E78.5 Hyperlipidemia, unspecified (principal); E11.42 Type 2 diabetes mellitus with diabetic polyneuropathy; Z12.5 Encounter for screening for malignant neoplasm of prostate; Z11.59 Encounter for screening for other viral diseases
CPT/HCPCS: 36415; 80053; 80061; 84153; 85025; 86803; G0103

== ENCOUNTER 2024-08-29 16:00 | Outpatient (CLI) | payer MEDICARE, SELFPAY ==
--- OUTSIDE RECORDS SUMMARY | 2024-08-29 16:02 | XMS_ITS | Clinical Summary ---
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
--- OUTSIDE RECORDS SUMMARY | 2024-08-29 16:02 | XMS_ITS | Clinical Summary ---
Author Organization [facility] Address [address] [place] [address] Phone Care Team Providers Care Applied Behavior Science Specialist Name Role Phone Hal Dailey MD Primary Care Provider [phone] Allergies Active Allergy Reactions Criticality Noted Date Comments Morphine Hives High 10/29/2008 Morphine And Codeine Hives 01/13/2022 Medications ferrous sulfate 325 (65 Fe) MG tablet 1 tab/cap bid 6 Active allopurinol (ZYLOPRIM) 100 MG tablet Take 100 mg by mouth 1 (one) time each day 2 Active amLODIPine (NORVASC) 5 MG tablet TAKE 1 TABLET BY MOUTH ONCE DAILY IN THE MORNING 2 Active aspirin (ST MEENAKSHI) 81 MG EC tablet Take 81 mg by mouth in the morning. 8 Active atorvastatin (LIPITOR) 80 MG tablet Take 80 mg by mouth 1 (one) time each day 2 Active cloNIDine (CATAPRES) 0.1 MG tablet Take 0.1 mg by mouth in the morning and 0.1 mg before bedtime. 2 Active Empagliflozin (Jardiance) 25 MG tablet Take by mouth 1 (one) time each day at the same time 9 Active gabapentin (NEURONTIN) 300 MG capsule Take by mouth every 8 hours 9 Active OneTouch Ultra test strip USE 1 STRIP TO CHECK GLUCOSE THREE TIMES DAILY 2 Active HYDROcodone-ac etaminophen (NORCO) 5-325 MG per tablet Take 1 tablet by mouth in the morning and 1 tablet before bedtime. 2 Active Basaglar KwikPen 100 UNIT/ML injection INJECT 40 UNITS SUBCUTANEOUSLY TWICE DAILY 2 Active BD Pen Needle Sierra 2nd Gen 32G X 4 MM misc USE WITH BASAGLAR TWICE DAILY 2 Active latanoprost (XALATAN) 0.005 % ophthalmic solution INSTILL 1 DROP IN BOTH EYES EVERY NIGHT AT BEDTIME 2 Active naproxen (NAPROSYN) 500 MG tablet Take 500 mg by mouth in the morning and 500 mg before bedtime. 2 Active omeprazole (PriLOSEC) [address] capsule Take 20 mg by mouth 1 (one) time each day 2 Active sildenafil (VIAGRA) 100 MG tablet TAKE 1/2 TABLET BY MOUTH 1 HOUR BEFORE SEXUAL ACTIVITY NEEDED 2 Active traMADol (ULTRAM) 50 MG tablet Take 50 mg by mouth in the morning and 50 mg at noon and 50 mg in the evening. 2 Active Active Problems Problem Noted Date Diagnosed Date Abnormal result of other cardiovascular function study 01/13/2022 Atherosclerosis of [place] ar teries of extremities with intermittent claudication [...] potential mismatch. 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 02/13/1959 Immunizations Immunization Administration Dates Next Due Influenza TIV (IM) [...] at Not on file Legal Sex Male 10:07 AM MST Gender Identity Not on file Sexual Orientation Not on file Last Filed Vital Signs Vital Sign Reading Time Taken Comments Blood Pressure 134/72 01/13/2022 10:49 AM BATCH AND FURNACE OPERATOR Pulse - - Temperature 36.7 C (98.1 F) 01/13/2022 10:49 AM BATCH AND FURNACE OPERATOR Respiratory Rate 18 01/13/2022 10:49 AM BATCH AND FURNACE OPERATOR Oxygen Saturation - - Inhaled Oxygen Concentration - - Weight 93 kg (205 lb) 01/13/2022 10:49 AM BATCH AND FURNACE OPERATOR Height 185.4 cm (6' 1) 01/13/2022 10:49 AM BATCH AND FURNACE OPERATOR Body Mass Index 27.05 01/13/2022 10:49 AM BATCH AND FURNACE OPERATOR Plan of Treatment Health Maintenance Due Date Last Done Comments Pneumococcal PPSV23/PCV13 65 + Years / Low and Medium Risk (1 of 2 - PCV) 12/23/2005 Influenza Vaccine (#1) 2024 11/11/2019 Insurance [employer] MEDICARE Care Teams Applied Behavior Science Specialist Relationship Specialty Start Date End Date Hal Dailey MD [address] [place] [address] PCP - General Internal Medicine 11/26/21
--- OUTSIDE RECORDS SUMMARY | 2024-08-29 16:02 | XMS_ITS | Clinical Summary ---
Author Organization Count Includes [facility] Address [address] [place] [address] Phone Care Team Providers Care Electrotype Molder Name Role Phone Hal Dailey MD Primary [...] A M CDT Height 185.4 cm (6' 1) 11/10/2019 8:23 PM CDT Body Mass Index [...] 6 MONTHS 05/09/2020 11/10/2019 INFLUENZA VACCINE (#1) 2024 11/11/2019 Procedures Procedure Name Priority Date/Time Associated Diagnosis Comments HEMOGLOBIN A1C Stat 11/10/2019 4:59 PM CDT from Last 3 Months or Most Recently Relevant to Health Maintenance Results * (ABNORMAL) HEMOGLOBIN A1C (11/10/2019 4:59 PM CDT) HEMOGLOBIN A1C 8.7(H) <=5.6 % 11/10/2019 8:23 PM CDT [facility] EST. AVG GLUCOSE, A1C 203 mg/dL 11/10/2019 8:23 PM CDT [facility] Blood Venipuncture / Unknown 11/10/2019 4:59 PM CDT 11/10/2019 5:05 PM CDT Narrative [facility] - 11/10/2019 8:23 PM CDT HGB A1C INTERPRETATION NORMAL: <5.7% PRE-DIABETES: 5.7 - 6.4% DIABETES: 6.5% OR GREATER Danette Hernandez IMMIGRATION LAWYER CHEMISTRY ORDERABLES Fin al Result [facility] CLIA# [id number] [place] [address] from Last 3 Months or Most Recently Relevant to Health [place] [address] [facility] Advance Directives For more information, please contact: [phone] * Full Code (Latest Code Status on File) Date Activated Date Inactivated Comments 11/10/2019 9:50 PM 11/12/2019 3:28 PM Care Teams Electrotype Molder Relationship Specialty Start Date End Date Hal Dailey MD [address] [place] [address] PCP - General Family Practice 11/10/19
--- OUTSIDE RECORDS SUMMARY | 2024-08-29 16:02 | XMS_ITS | Encounter Summary ---
Author Organization [facility] Address [address] [place] [address] Care Team Providers Care Group Marketing Vp Name Role Phone Hal Dailey MD Primary Care Provider [phone] Reason for Visit * Reason Onset Date Comments SYNCOPE 11/11/2019 LADAN @ DR ALMAZAN 'S EXCHANGE Encounter Details Date Type Department Care Team (Late st Contact Info) Description 11/11/2019 Telephone [facility] Admitting [address] [place] [address] [place] [address] [facility] [address] [place] [address] SYNCOPE (LADAN @ DR ALMAZAN'S [...] on filedocumented in this encounter Care Teams Group Marketing Vp Relationship Specialty Start Date End Date Hal Dailey MD [address] [place] [address] PCP - General Family Practice 11/10/19 documented as of this encounter
[2024-08-29 17:01] LABS: Albumin Level 4.1 g/dL (3.5-5.1); Anion Gap 9 mmol/L (4-12); Blood Urea Nitrogen 14 mg/dL (9-20); Calcium 9.1 mg/dL (8.4-10.2); Carbon Dioxide 22 mmol/L (22-30); Chloride 114 mmol/L (98-107); Estimated Glomerular Filt Rate 39; Glucose 94 mg/dL (65-110); Sodium 145 mmol/L (137-145); Total Protein Urine Random 37 mg/dL; Ur Ttl Prot Creatinine Ratio 0.15 mg/mg (0-0.20)
[2024-08-29 17:12] LABS: Potassium 3.4 mmol/L (3.4-5.0)
== END 2024-08-29 16:01 | disposition home or self-care (01) ==
LOC: ANHLAB 16:00
PROVIDERS: PCP Family Medicine; Visit Provider Internal Medicine Nephrology
DX: I12.9 Hypertensive chronic kidney disease with stage 1 through stage 4 chronic kidney disease, or unspecified chronic kidney disease (principal); E11.22 Type 2 diabetes mellitus with diabetic chronic kidney disease; N18.32 Chronic kidney disease, stage 3b; E55.9 Vitamin D deficiency, unspecified
CPT/HCPCS: 36415; 80069; 82306; 82570; 84156

== ENCOUNTER 2024-11-03 20:37 | Emergency (ER) | payer MEDICARE, SELFPAY ==
--- NOTE | ~2024-11-03 | XR_ITS ---
Examination: XR chest 1V portable Clinical History: generlized weakness AFTER SMOKING MARIJUANA Comparison: 11/20/2023 Technique: Portable AP Findings: Heart size normal. Lungs clear. No acute bony abnormality. IMPRESSION: 1. No acute cardiopulmonary findings given portable technique. Reviewed, dictated and finalized at location R.
--- NOTE | 2024-11-03 20:38 | ECG_ITS ---
Test Date: 2024-11-03 20:58:15 Measurements Intervals [place] Rate: 61 P: 53 AR: 227 QRS: 9 QRSD: 105 T: 265 QT: 437 QTc: 441 Interpretive Statements SINUS RHYTHM WITH FIRST DEGREE AV BLOCK NONDIAGNOSTIC INFERIOR Q-WAVE MODERATE T-WAVE ABNORMALITY, CONSIDER LATERAL ISCHEMIA [-0.1+ mV T-WAVE IN I/aVL/V5/V6] ABNORMAL ECG Compared to ECG 11/20/2023 11:29:28 NO SIGNIFICANT CHANGE Electronically Signed On 11-04-2024 08:22:14 CDT by Zohaib Kaplan M.D.
--- OUTSIDE RECORDS SUMMARY | 2024-11-03 20:40 | XMS_ITS | Clinical Summary ---
Author Organization [facility] Address [address] [place] [address] Phone Care Team Providers Care Annealing Furnace Operator Name Role Phone Hal Dailey MD Primary Care Provider [phone] Allergies Active Allergy Reactions Criticality Noted Date [...] other cardiovascular function study 01/13/2022 Atherosclerosis of [place] ar teries of extremities with intermittent claudication [...] potential mismatch. Atherosclerotic heart diseas e of [place] coronary artery without angina pectoris 04/27/2015 Gout 04/27/2015 Male erectile disorder 10/29/2008 Essential (primary) hypertension 02/13/1959 Atherosclerotic heart diseas e of [place] coronary artery without angina pectoris 02/13/1959 Immunizations [...] Comments Blood Pressure 134/72 01/13/2022 10:49 AM COMPUTER SYSTEMS DESIGN ANALYST Pulse - - Temperature 36.7 C (98.1 F) 01/13/2022 10:49 AM COMPUTER SYSTEMS DESIGN ANALYST Respiratory Rate 18 01/13/2022 10:49 AM COMPUTER SYSTEMS DESIGN ANALYST Oxygen Saturation - - Inhaled Oxygen Concentration - - Weight 93 kg (205 lb) 01/13/2022 10:49 AM COMPUTER SYSTEMS DESIGN ANALYST Height 185.4 cm (6' 1) 01/13/2022 10:49 AM COMPUTER SYSTEMS DESIGN ANALYST Body Mass Index 27.05 01/13/2022 10:49 AM COMPUTER SYSTEMS DESIGN ANALYST Plan of Treatment Health Maintenance Due Date Last Done Comments Pneumococcal PPSV23/PCV13 65 + Years / Low and Medium Risk (1 of 2 - PCV) 12/23/2005 Influenza Vaccine (#1) 2024 11/11/2019 Insurance [employer] MEDICARE Care Teams Annealing Furnace Operator Relationship Specialty Start Date End Date Hal Dailey MD [address] [place] [address] PCP - General Internal Medicine 11/26/21
--- OUTSIDE RECORDS SUMMARY | 2024-11-03 20:40 | XMS_ITS | Clinical Summary ---
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 Gender Identity Not on file Sexual Orientation Not on file Plan of Treatment Health Maintenance Due Date Last Done Comments Hepatitis C Virus (HCV) Screening 1955 TdaP Immunization 1955 Cologuard 12/23/2000 Immunochemical Fecal Occult Blood 12/23/2000 Pneumococcal Immunization (5 0+ years) (1 of 1 - PCV) 12/23/2005 Zoster Immunization (1 of 2) 12/23/2005 Colonoscopy 03/13/2023 03/13/2020, 01/19/2018, 07/07/2017 Colorectal Cancer Screening 03/13/2023 SARS-COV-2 Immunization (1 - 2023- season) 2023 Influenza Immunization (#1) 10/15/2024/03/2016, 11/15/2014 Respiratory Syncytial Virus (RSV) Immunization (Adult) (1 - 1-dose 75+ series) 12/23/2030 Hepatitis B Immunization Aged Out No longer eligible based on patient's age to complete this topic Human Papillomavirus (HPV) Immunization Aged Out No longer eligible b ased [...] Relevant to Health Maintenance Insurance [facility]ICARE C [facility] Care Teams Banquet Manager Relationship Specialty Start Date End Date Hal Dailey MD [address] [id number] PCP - General Family Medicine 04/21/17
--- OUTSIDE RECORDS SUMMARY | 2024-11-03 20:40 | XMS_ITS | Encounter Summary ---
Author Organization [facility] Address [address] [place] [address] Care Team Providers Care Oral And Maxillofacial Pathologist Name Role Phone Hal Dailey MD Primary Care Provider [phone] Reason for Visit * Reason Onset Date Comments SYNCOPE 11/11/2019 LADAN @ DR ALMAZAN 'S EXCHANGE Encounter Details Date Type Department Care Team (Late st Contact Info) Description 11/11/2019 Telephone [facility] Admitting [address] [place] [address] [place] [address] [facility] [address] [place] [address] SYNCOPE (LADAN @ DR ALMAZAN'S [...] How often do you attend chur or adventist services? 1 to 4 times per year 11/10/2019 Do you belong to any clubs o r organizations such as zoroastrianism groups, unions, fraternal or athletic groups, or [...] on filedocumented in this encounter Care Teams Oral And Maxillofacial Pathologist Relationship Specialty Start Date End Date Hal Dailey MD [address] [place] [address] PCP - General Family Practice 11/10/19 documented as of this encounter
[2024-11-03 20:41] VITALS: BP 150/73; PULSE 58; RESP 18; TEMP 36.4; O2SAT 100
[2024-11-03 21:10] LABS: Hematocrit 39.8 % (42.0-52.0); Hemoglobin 12.8 g/dL (14.0-18.0); Immature Granulocyte Percent A 0.5 % (0-0.5); Lymphocytes Absolute Auto 1.88 K/mm3 (0.9-3.2); Mean Corpuscular HGB Conc 32.2 g/dl (32-36); Mean Corpuscular Hemoglobin 27.4 pg (26-34); Mean Corpuscular Volume 85.0 fl (80-100); Nucleated Red Blood Cells Absolute Auto 0.000 K/mm3 (0.0-0.012); Nucleated Red Blood Cells Perc 0.0 % (0.0-0.2); Platelet Count Result 238 k/mm3 (150-375); Red Blood Count 4.68 M/mm3 (4.6-6.20); White Blood Count 8.3 K/mm3 (4.5-10.0)
[2024-11-03 21:31] LABS: Alanine Aminotransferase 16 U/L (6-50); Albumin Level 4.0 g/dL (3.5-5.1); Alkaline Phosphatase 92 U/L (38-126); Anion Gap 7 mmol/L (4-12); Aspartate Amino Transferase 24 U/L (17-59); Bilirubin,Total 0.3 mg/dL (0.2-1.3); Blood Urea Nitrogen 20 mg/dL (9-20); Calcium 8.8 mg/dL (8.4-10.2); Carbon Dioxide 27 mmol/L (22-30); Chloride 108 mmol/L (98-107); Estimated CRCL calculation 37 ml/min; Estimated Glomerular Filt Rate 34; Glucose 253 mg/dL (65-110); Potassium 3.8 mmol/L (3.4-5.0); Sodium 142 mmol/L (137-145); Total Protein 7.3 g/dL (6.3-8.2)
--- OUTSIDE RECORDS SUMMARY | 2024-11-03 22:33 | XMS_ITS | Clinical Summary ---
Author Organization [facility] Address [address] [facility] [address] [place] [address] Phone Care Team Providers Care Dressing Room Porter Name Role Phone Hal Dailey MD Primary Care Provider [phone] Medications polyethylene glycol (MIRALAX) Powder Use entire bottle of 255 grams of miralax for Colon prep as directed by office. 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
--- OUTSIDE RECORDS SUMMARY | 2024-11-03 22:33 | XMS_ITS | Clinical Summary ---
Author Organization [facility] Address [address] [place] [address] Phone Care Team Providers Care Pocket Grinder Operator Name Role Phone Hal Dailey MD Primary Care Provider [phone] Allergies Active Allergy Reactions Criticality Noted Date [...] other cardiovascular function study 01/13/2022 Atherosclerosis of [place] ar teries of extremities with intermittent claudication [...] potential mismatch. 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/27/2015 Gout 04/27/2015 Male erectile disorder 10/29/2008 Essential (primary) hypertension 02/13/1959 Atherosclerotic heart diseas e of [place] coronary artery without angina pectoris 02/13/1959 Immunizations [...] Comments Blood Pressure 134/72 01/13/2022 10:49 AM FIXTURE DESIGNER Pulse - - Temperature 36.7 C (98.1 F) 01/13/2022 10:49 AM FIXTURE DESIGNER Respiratory Rate 18 01/13/2022 10:49 AM FIXTURE DESIGNER Oxygen Saturation - - Inhaled Oxygen Concentration - - Weight 93 kg (205 lb) 01/13/2022 10:49 AM FIXTURE DESIGNER Height 185.4 cm (6' 1) 01/13/2022 10:49 AM FIXTURE DESIGNER Body Mass Index 27.05 01/13/2022 10:49 AM FIXTURE DESIGNER Plan of Treatment Health Maintenance Due Date Last Done Comments Pneumococcal PPSV23/PCV13 65 + Years / Low and Medium Risk (1 of 2 - PCV) 12/23/2005 Influenza Vaccine (#1) 2024 11/11/2019 Insurance [employer] MED[employer]ARE Care Teams Pocket Grinder Operator Relationship Specialty Start Date End Date Hal Dailey MD [address] [place] [address] PCP - General Internal Medicine 11/26/21
--- OUTSIDE RECORDS SUMMARY | 2024-11-03 22:33 | XMS_ITS | Encounter Summary ---
Author Organization [facility] Address [address] [place] [address] Care Team Providers Care Lead Shop Operator Name Role Phone Hal Dailey MD Primary Care Provider [phone] Reason for Visit * Reason Onset Date Comments SYNCOPE 11/11/2019 LADAN @ DR ALMAZAN 'S EXCHANGE Encounter Details Date Type Department Care Team (Late st Contact Info) Description 11/11/2019 Telephone [facility] Admitting [address] [place] [address] [place] [address] [facility] [address] [place] [address] SYNCOPE (LADAN @ DR ALMAZAN'S [...] How often do you attend chur or restoration services? 1 to 4 times per year 11/10/2019 Do you belong to any clubs o r organizations such as quaker groups, unions, fraternal or athletic groups, or [...] on filedocumented in this encounter Care Teams Lead Shop Operator Relationship Specialty Start Date End Date Hal Dailey MD [address] [place] [address] PCP - General Family Practice 11/10/19 documented as of this encounter
[2024-11-03] MEDS: LACTATED RINGERS 1,000 ML 999 ML IV CONT (23:15)
[2024-11-04 01:08] LABS: Add Urine Microscopic? YES; Appearance Urine Clear (Clear); Glucose Urine UA Negative (Negative); Leukocyte Esterase Ur Negative LEU/UL (Negative); Nitrate Urine Negative (Negative); Non Pathogenic Casts 0-2; Specific Grav Ur 1.010 (1.001-1.035)
[2024-11-04 01:48] LABS: Cannabinoid Screen Urine Positive (Negative)
--- NOTE | 2024-11-04 03:21 | ED.WEAKNESS ---
HPI - Weakness General Chief complaint: Weakness Stated complaint: low bp and high BG, gen weakness/lethargy Time Seen by Provider: 11/03/24 22:00 History of Present Illness HPI Narrative: Per patient's , patient has been quite lethargic, this has been the case over last few years since his heart attack and he has been here few months ago for the same issue. Today was eating dinner and chatting with his , and per , he was quite sleepy. She is concerned about him. Patient is denying any chest pain, shortness of breath, he just reports pain to his right hip that is bothersome and occasionally some nausea vomiting, which has resolved. He does also report having used marijuana. He does not want to be here. When EMS arrived they did check blood sugar which was in the 200s, blood pressure and heart rate seemed a little bit low. Related Data Home Medications ?Medication ?Instructions ?Recorded ?Confirmed ?Last Taken ?Type albuterol sulfate 90 mcg/actuation 2 puff inhalation Q6H PRN 02/27/20 09/17/24 Unknown History aerosol inhaler Shortness Of Breath Or Wheezing amlodipine 5 mg tablet 5 mg PO DAILY 02/27/20 09/17/24 Unknown History atorvastatin 80 mg tablet 80 mg PO DAILY 02/27/20 09/17/24 Unknown History insulin glargine 100 unit/mL (3 30 unit subcut BID 02/27/20 09/17/24 Unknown History mL) subcutaneous pen (Basaglar KwikPen U-100 Insulin) omeprazole 20 mg capsule,delayed 20 mg PO DAILY 02/27/20 09/17/24 Unknown History release aspirin 81 mg chewable tablet 81 mg PO DAILY 05/31/22 09/17/24 Unknown History budesonide-formoterol HFA 160 2 puff inhalation BID 05/31/22 09/17/24 Unknown History mcg-4.5 mcg/actuation aerosol inhaler (Symbicort) sitagliptin phosphate 25 mg tablet 25 mg PO DAILY 05/31/22 09/17/24 Unknown History ([place]) carvedilol 12.5 mg tablet 12.5 mg PO BID 04/06/23 09/17/24 Unknown History clopidogrel 75 mg tablet 75 mg PO DAILY 04/06/23 09/17/24 Unknown History ezetimibe 10 mg tablet 10 mg PO DAILY 04/06/23 09/17/24 Unknown History oxycodone 5 mg tablet 5 mg PO QID 04/06/23 09/17/24 Unknown History tamsulosin 0.4 mg capsule 0.4 mg PO DAILY 04/06/23 09/17/24 Unknown History Allergies Allergy/AdvReac Type Severity Reaction Status Date / Time adhesive tape Allergy Unknown RASH Verified 09/17/24 10:10 morphine Allergy Unknown HIVES Verified 09/17/24 10:10 Review of Systems Review of Systems: All systems reviewed & are unremarkable except as noted in HPI and below PMFSH Past Medical History Medical History CKD (chronic kidney disease) H/O colon cancer, stage I Diabetes Anemia COPD (chronic obstructive pulmonary disease) CAD (coronary artery disease) Surgical History Surgical History Hx of CABG Stented coronary artery Family History Family History Father Cerebrovascular accident Sibling Family history of diabetes mellitus in first degree relative Family history of heart disease in male family member before age 55 Social History Social History Smoking packs per day: 0.5 Smoking cigarettes per day: 10.0 Years smoked: 45 Smoking pack-years: 22.50 Smoking status: Current every day smoker Alcohol intake: former Drinks per week: 3 Alcohol use details: SOCIAL Substance use: current Substance use type: marijuana Do You Feel Safe in your Home?: Yes Lack of Transportation: No Lack of Food: Never True Current Housing: I Have Housing Concerned About Future Housing: No Difficulty Paying Gas/Electric Bills: No Difficulty Paying for Meds: YES Currently Unemployed: No Education: High School Diploma/GED Difficulty w/ Childcare or Family Care: No Living arrangements: with family Gender identity (if verbalized by the patient): Male Sexual Orientation (if Verbalized by the Patient): Straight or Heterosexual Spiritual care concerns: No Exam Narrative: EXAMINATION OF ORGAN SYSTEMS/BODY AREAS: Constitutional: Vital signs per nursing GENERAL:[No acute distress, non-toxic appearing.] HEAD: Normal with no signs of head trauma. EYES: EOMI, conjunctiva normal, PERRL ENT: Hearing grossly intact LUNGS: Nonlabored breathing. HEART: [Regular rate and rhythm] ABD: [Soft], [nontender to palpation] EXT: Normal range of motion SKIN: [No rashes or lesions.] NEURO: [Alert and oriented x 3. No gross focal sensory or strength deficits.] PSYCH: Normal affect Course Vital Signs Vital signs: Vital Signs Temperature 97.6 F 11/03/24 20:41 Pulse Rate 58 L 11/03/24 20:41 Respiratory Rate 18 11/03/24 20:41 Blood Pressure 150/73 H 11/03/24 20:41 Pulse Oximetry 100 11/03/24 20:41 Oxygen Delivery Room Air 11/03/24 20:41 Temperature 97.6 F 11/03/24 20:41 Pulse Rate 58 L 11/03/24 20:41 Respiratory Rate 18 11/03/24 20:41 Blood Pressure 150/73 H 11/03/24 20:41 Pulse Oximetry 100 11/03/24 20:41 Oxygen Delivery Room Air 11/03/24 20:41 MDM - Weakness MDM Narrative Medical decision making narrative: Patient presenting with lethargy per , patient denies any complaints other than he initially had some nausea which has resolved, and chronic right hip pain. He reports to recent marijuana use. is quite concerned about him and thinks that something might be going on with his heart, EKG on my independent interpretation shows sinus rhythm, rate 61, NC 227, QRS 105, QTC 4 for 1, he does have some T-wave inversions inferior lateral leads, though I did pull up his prior EKGs and these were chronic Troponin is negative, his labs are within acceptable limits, his chest x-ray clear on my independent interpretation. He is requesting to go home, but does agree to get a L of fluids here. His is concerned and thinks that he needs to be admitted, I did have long discussion with them together, I did offer him admission for observation, he refuses and wants to go home. He is alert and oriented x4 in making his own medical decisions and I did explain to the unfortunately cannot hold him against his will here. I did let him know that if he changes his mind he can always return to the emergency room for further evaluation and treatment. Lab Data 11/03/24 21:02 11/03/24 21:02 Labs: Lab Results 11/03/24 11/04/24 Range/Units 21:02 00:51 WBC 8.3 (4.5-10.0) K/mm3 RBC 4.68 (4.6-6.20) M/mm3 Hgb 12.8 L (14.0-18.0) g/dL Hct 39.8 L (42.0-52.0) % MCV 85.0 (80-100) fl MCH 27.4 (26-34) pg MCHC 32.2 (32-36) g/dl RDW 16.2 H (11.5-14.5) % Plt Count 238 (150-375) k/mm3 MPV 10.5 H (7.4-10.4) fl Immature Gran % (Auto) 0.5 (0-0.5) % Neut % (Auto) 69.8 (45.5-73.1) % Lymph % (Auto) 22.6 (18.3-44.2) % [place] % (Auto) 4.9 (2.6-8.5) % Eos % (Auto) 1.7 (0-4.4) % Baso % (Auto) 0.5 (0.2-1.2) % Lymph # (Auto) 1.88 (0.9-3.2) K/mm3 [place] # (Auto) 0.4 (0.1-0.6) K/mm3 Eos # (Auto) 0.1 (0-0.3) K/mm3 Baso # (Auto) 0.0 (0.0-0.1) K/mm3 Abs Immat Gran (auto) 0.04 H (0.00-0.031) K/mm3 Absolute Neuts (auto) 5.8 (1.3-6.7) K/mm3 Absolute Nucleated RBC 0.000 (0.0-0.012) K/mm3 Nucleated RBC % 0.0 (0.0-0.2) % Sodium 142 (137-145) mmol/L Potassium 3.8 (3.4-5.0) mmol/L Chloride 108 H (98-107) mmol/L Carbon Dioxide 27 (22-30) mmol/L Anion Gap 7 (4-12) mmol/L BUN 20 (9-20) mg/dL Creatinine 1.95 H (0.7-1.3) mg/dL Estim Creat Clear Calc 37 ml/min Estimated GFR 34 L (59 - ) Glucose 253 H (65-110) mg/dL Calcium 8.8 (8.4-10.2) mg/dL Total Bilirubin 0.3 (0.2-1.3) mg/dL AST 24 (17-59) U/L ALT 16 (6-50) U/L Alkaline Phosphatase 92 (38-126) U/L Total Protein 7.3 (6.3-8.2) g/dL Albumin 4.0 (3.5-5.1) g/dL Urine Color Yellow (Yellow) Urine Appearance Clear (Clear) Urine pH 6.0 (5.0-9.0) Ur Specific [place] 1.010 (1.001-1.035) Urine Protein 2+ H (Negative) mg/dL Urine Glucose (UA) Negative (Negative) mg/dL Urine Ketones Negative (Negative) mg/dL Ur Blood (Man) Negative (Negative) Urine Nitrate Negative (Negative) Urine Bilirubin Negative (Negative) Urine Urobilinogen 1.0 (<2.0) mg/dL Leukocyte Esterase Rfl Negative (Negative) LETICIA/UL Urine RBC 0-2 (0-2) /hpf Urine WBC 0-5 (0-3) /hpf Ur Squamous Epith Cells None seen (Few) /hpf Urine Bacteria None seen /hpf Urine Casts 0-2 Urine Opiates Screen Negative (Negative) Urine Methadone Screen Negative (Negative) Ur Barbiturates Screen Negative (Negative) Ur Phencyclidine Scrn Negative (Negative) Ur Amphetamine Screen Negative (Negative) U Benzodiazepines Scrn Negative (Negative) Urine Cocaine Screen Negative (Negative) U Cannabinoids Screen Positive A (Negative) Discharge Plan Discharge Clinical Impression: Lethargy Patient Disposition: Home Condition: Stable Additional Instructions: Your offered possible admission today but you would prefer to go home. Please follow up with your doctor; you can always return for any further issues or if you change your mind. Please make sure to keep hydrated. Patient Language: Scottish Prescriptions: No Action ergocalciferol (vitamin D2) 1,250 mcg (50,000 unit) capsule 1,250 mcg PO WEEKLY Qty: 12 1RF carvedilol 12.5 mg tablet 12.5 mg PO BID clopidogrel 75 mg tablet 75 mg PO DAILY tamsulosin 0.4 mg capsule 0.4 mg PO DAILY oxycodone 5 mg tablet 5 mg PO QID ezetimibe 10 mg tablet 10 mg PO DAILY losartan 25 mg Tablet 25 mg PO DAILY Qty: 30 0RF albuterol sulfate 90 mcg/actuation HFA aerosol inhaler 2 puff inhalation Q6H PRN (Reason: Shortness Of Breath Or Wheezing) amlodipine 5 mg tablet 5 mg PO DAILY atorvastatin 80 mg tablet 80 mg PO DAILY insulin glargine [Basaglar KwikPen U-100 Insulin] 100 unit/mL (3 mL) insulin pen 30 unit SUBCUT BID omeprazole 20 mg capsule,delayed release(DR/EC) 20 mg PO DAILY budesonide-formoterol [Symbicort] 160-4.5 mcg/actuation HFA aerosol inhaler 2 puff INHALATION BID Januvia 25 mg Tablet 25 mg PO DAILY aspirin 81 mg Tablet,Chewable 81 mg PO DAILY Follow-up/Referrals: Hal Dailey MD [Primary Care Provider, Family Practice] - 2 Days
== END 2024-11-04 01:58 | disposition home or self-care (01) ==
PROVIDERS: Emergency Provider Emergency Medicine; PCP Family Medicine
DX: R53.1 Weakness (principal); R53.83 Other fatigue; I25.10 Atherosclerotic heart disease of native coronary artery without angina pectoris; I25.2 Old myocardial infarction; E11.22 Type 2 diabetes mellitus with diabetic chronic kidney disease; N18.9 Chronic kidney disease, unspecified; J44.9 Chronic obstructive pulmonary disease, unspecified; D64.9 Anemia, unspecified; G89.29 Other chronic pain; M25.551 Pain in right hip; F17.210 Nicotine dependence, cigarettes, uncomplicated; Z85.038 Personal history of other malignant neoplasm of large intestine; Z95.5 Presence of coronary angioplasty implant and graft; Z95.1 Presence of aortocoronary bypass graft; Z79.02 Long term (current) use of antithrombotics/antiplatelets; Z79.899 Other long term (current) drug therapy; Z79.4 Long term (current) use of insulin; Z79.82 Long term (current) use of aspirin; Z79.84 Long term (current) use of oral hypoglycemic drugs; R94.31 Abnormal electrocardiogram [ECG] [EKG]; I44.0 Atrioventricular block, first degree
CPT/HCPCS: 36415; 71045; 80053; 80307; 81001; 85025; 93005; 96360; 99283; J7120

== ENCOUNTER 2024-12-05 11:34 | Outpatient (CLI) | payer MEDICARE, SELFPAY ==
[2024-12-05 12:19] LABS: Hematocrit 39.5 % (42.0-52.0); Hemoglobin 13.0 g/dL (14.0-18.0); Mean Corpuscular HGB Conc 32.9 g/dl (32-36); Mean Corpuscular Hemoglobin 27.7 pg (26-34); Mean Corpuscular Volume 84.0 fl (80-100); Platelet Count Result 218 k/mm3 (150-375); Red Blood Count 4.70 M/mm3 (4.6-6.20); White Blood Count 8.8 K/mm3 (4.5-10.0)
[2024-12-05 12:59] LABS: Alanine Aminotransferase 18 U/L (6-50); Albumin Level 4.0 g/dL (3.5-5.1); Alkaline Phosphatase 88 U/L (38-126); Anion Gap 5 mmol/L (4-12); Aspartate Amino Transferase 25 U/L (17-59); Bilirubin,Total 0.3 mg/dL (0.2-1.3); Blood Urea Nitrogen 17 mg/dL (9-20); Calcium 9.0 mg/dL (8.4-10.2); Carbon Dioxide 27 mmol/L (22-30); Chloride 110 mmol/L (98-107); Cholesterol 175 mg/dL (0-200); Estimated Glomerular Filt Rate 42; Glucose 121 mg/dL (65-110); HDL Direct 29 mg/dL; Potassium 3.9 mmol/L (3.4-5.0); Sodium 142 mmol/L (137-145); Total Protein 7.2 g/dL (6.3-8.2); Triglycerides 161 mg/dL (<150); Uric Acid 7.6 mg/dL (3.5-8.5)
[2024-12-05 13:12] LABS: Thyroid Stimulating Hormone Reflex 3.400 uIU/mL (0.465-4.68)
[2024-12-05 13:59] LABS: Hemoglobin A1C 6.5 % (<5.7)
[2024-12-05 16:48] LABS: Prostate Specific Antigen 2.7 ng/mL (< OR = 4.0)
[2024-12-05 17:23] LABS: Vitamin B12 746.0 pg/mL (239-931)
== END 2024-12-05 11:35 | disposition home or self-care (01) ==
PROVIDERS: PCP Family Medicine; Visit Provider Nurse Practitioner Family
DX: Z12.5 Encounter for screening for malignant neoplasm of prostate (principal); E11.22 Type 2 diabetes mellitus with diabetic chronic kidney disease; N18.30 Chronic kidney disease, stage 3 unspecified; E29.1 Testicular hypofunction; E55.9 Vitamin D deficiency, unspecified; R53.1 Weakness; R53.83 Other fatigue; M10.9 Gout, unspecified
CPT/HCPCS: 36415; 80053; 80061; 82306; 82607; 82746; 83036; 84153; 84443; 84550; 85027; G0103